=== PATIENT | female | born 1950 | race Caucasian/White ===

== ENCOUNTER 2023-01-08 09:05 | Outpatient (OUT) | payer MEDICARE, OTHER, SELFPAY ==
--- NOTE | 2023-01-08 09:26 | XR_ITS ---
The [address] [address] Patient Name: RADHA BARNETT MRN: [id number] date: 1950 Sex: F Assigned Patient Location: [facility] Current Patient Location: [facility] Accession/Order Number: [id number] Exam Date: 01/08/2023 09:26 Report Date: 01/08/2023 11:27 At the request of: ANDRAE SEALS Procedure: XR foot RT min 3V PROCEDURE: XR foot RT min 3V DATE: 01/08/2023 8:26 AM CDT COMPARISONS: Right ankle radiographs done the same time as these foot radiographs. CLINICAL INDICATION: RIGHT FOOT PAIN FINDINGS: There is no evidence of fractures or other acute osseous abnormalities. Prominent ankle degenerative changes are identified as described on ankle radiographs. Moderate first carpometacarpal degenerative changes identified There is slight subluxation of the third distal interphalangeal joint on frontal view. This may be related to old trauma. Correlation with physical exam and clinical history may be helpful. This cannot be further assessed on lateral view due to overlying bone and soft tissue Pes planus deformity is identified. IMPRESSION: No evidence of acute osseous abnormalities. Findings as discussed above.. Electronically authenticated by: MIKA CHAMPION Date: 01/08/2023 11:27
--- NOTE | 2023-01-08 09:27 | XR_ITS ---
The [address] [address] Patient Name: RADHA BARNETT MRN: [id number] date: 1950 Sex: F Assigned Patient Location: [facility] Current Patient Location: [facility] Accession/Order Number: [id number] Exam Date: 01/08/2023 09:26 Report Date: 01/08/2023 11:23 At the request of: ANDRAE SEALS Procedure: XR ankle RT min 3V PROCEDURE: XR ankle RT min 3V DATE: 01/08/2023 8:26 AM CDT COMPARISONS: None CLINICAL INDICATION: RIGHT ANKLE PAIN FINDINGS: There is no evidence of fractures or other acute osseous abnormalities. There is prominent right ankle degenerative changes. This includes significant narrowing of the medial tibiotalar joint space. There is associated subchondral sclerosis at this narrowing. There is moderate anterior tibiotalar spurring. The ankle mortise is not widened. There is corticated 1 cm ossific density distal to the medial malleolus probably representing old trauma and/or accessory ossicle. There appears to be some ankle joint effusion noted on lateral view IMPRESSION: Significant right ankle degenerative changes. . Electronically authenticated by: MIKA CHAMPION Date: 01/08/2023 11:23
== END 2023-01-08 09:06 ==
PROVIDERS: PCP Physician Assistant; Visit Provider Physician Assistant
DX: M25.571 Pain in right ankle and joints of right foot (principal)
CPT/HCPCS: 73610; 73630

== ENCOUNTER 2023-01-13 14:18 | Outpatient (OUT) | payer MEDICARE, OTHER, SELFPAY ==
--- NOTE | 2023-01-13 14:27 | CT_ITS ---
The [address] [address] Patient Name: RADHA BARNETT MRN: [id number] date: 1950 Sex: F Assigned Patient Location: CT Current Patient Location: CT Accession/Order Number: [id number] Exam Date: 01/13/2023 14:30 Report Date: 01/13/2023 15:32 At the request of: ESTRELLA ENCISO Procedure: CT ankle RT wo con CT ankle RT wo con CLINICAL HISTORY: Chronic right ankle pain. Primary osteoarthritis, right ankle, TAR protocol M19.071. COMPARISON: 01/08/2023. TECHNIQUE: Noncontrast axial CT of the right lower extremity from the right knee through the right foot, with TAR protocol. Bone and soft tissue windows provided for review. Sagittal and coronal reconstructions performed. Dose reduction techniques were achieved by using automated exposure control and/or adjustment of mA and/or kV according to patient size and/or use of iterative reconstruction technique. FINDINGS: No acute bony process throughout. Severe degenerative change of the right ankle joint with chronic remodeling of the talar dome and anterior tibial plafond. Minimal associated effusion. Achilles tendon is grossly intact and normal thickness. Plantar fascial intact. Mild degenerative change of the midfoot and great toe MTP joint. Early degenerative change of the knee joint. IMPRESSION: Preoperative planning CT right ankle with degenerative change. Electronically authenticated by: LOGAN PAEZ Date: 01/13/2023 15:32
== END 2023-01-13 14:19 ==
PROVIDERS: PCP Physician Assistant; Visit Provider Student in an Organized Health Care Education/Training Program
DX: M19.071 Primary osteoarthritis, right ankle and foot (principal)
CPT/HCPCS: 73700

== ENCOUNTER 2023-07-15 06:54 | Outpatient (OUT) | payer MEDICARE, OTHER, SELFPAY ==
--- NOTE | 2023-07-15 06:57 | MM_ITS ---
Patient Name: RADHA BARNETT MR#: [id number] : 1950 Exam Date: 07/15/2023 Ordering Doctor: DR. PETAR DUBOIS D.O. RADIOLOGY REPORT PROCEDURE: MM TOMOSYNTHESIS SCREENING BI COMPARISON: MG MAMM SCREEN 3D JUSTO CAD, 07/14/2022. MG MAMM SCREEN 3D JUSTO CAD, 06/20/2021. MG MAMM SCREEN JUSTO W CAD, 06/18/2020. MG MAMM JUSTO SCRN W CAD DIG, 04/27/2013. INDICATIONS: screening for malignant neoplasm of breast Calculator Name [facility] Breast Cancer Risk Assessment Tool 5 Year Breast Cancer Risk 1.70% Lifetime Breast Cancer Risk 4.90% Personal Breast Cancer No Personal Ovarian Cancer No Treatments None Family Cancers Aunt-maternal with breast cancer at age 80; Brother with lung cancer at age 65; Brother with colon cancer at age 70. LOCATION: [facility] BREAST COMPOSITION: Heterogeneously dense,which may obscure small masses. FINDINGS: DIAGNOSTIC CATEGORY 1--NEGATIVE. RIGHT BREAST: No significant suspicious finding. No significant change has occurred. LEFT BREAST: No significant suspicious finding. No significant change has occurred. RECOMMENDATIONS: ROUTINE MAMMOGRAM AND CLINICAL EVALUATION IN 12 MONTHS. PLEASE NOTE: A NORMAL MAMMOGRAM DOES NOT EXCLUDE THE POSSIBILITY OF BREAST CANCER. A CLINICALLY SUSPICIOUS PALPABLE LUMP SHOULD BE BIOPSIED. Dictated by: All Reynolds M.D. on 07/15/2023 at 14:07 Approved by: All Reynolds M.D. on 07/15/2023 at 14:09
== END 2023-07-15 06:55 | disposition home or self-care (01) ==
LOC: MAMMO 06:54
PROVIDERS: Visit Provider Obstetrics & Gynecology
DX: Z12.31 Encounter for screening mammogram for malignant neoplasm of breast (principal); Z80.3 Family history of malignant neoplasm of breast; Z80.0 Family history of malignant neoplasm of digestive organs; Z80.1 Family history of malignant neoplasm of trachea, bronchus and lung
CPT/HCPCS: 77063; 77067

== ENCOUNTER 2023-07-15 08:51 | Outpatient (OUT) | payer MEDICARE, OTHER, SELFPAY ==
--- NOTE | 2023-07-15 | XR_ITS ---
[address] [address] Patient Name: RADHA BARNETT MRN: [id number] date: 1950 Sex: F Assigned Patient Location: [facility] Current Patient Location: [facility] Accession/Order Number: [id number] Exam Date: 07/15/2023 09:10 Report Date: 07/15/2023 11:52 At the request of: URIEL CHUA Procedure: XR foot RT min 3V EXAM: XR foot RT min 3V HISTORY: RIGHT FOOT PAIN COMPARISON: 01/08/2023 FINDINGS/IMPRESSION: 1. No acute fracture or dislocation 2. Mild degeneration of the interphalangeal joints. 3. Moderate to advanced degeneration at the ankle joint. No ankle joint effusion. 4. Normal alignment of the bones of the foot. Electronically authenticated by: BIBIANA SHEARER Date: 07/15/2023 11:52
--- NOTE | 2023-07-15 | XR_ITS ---
The [address] [address] Patient Name: RADHA BARNETT MRN: [id number] date: 1950 Sex: F Assigned Patient Location: [facility] Current Patient Location: [facility] Accession/Order Number: [id number] Exam Date: 07/15/2023 09:10 Report Date: 07/15/2023 10:50 At the request of: URIEL CHUA Procedure: XR ankle RT min 3V CLINICAL HISTORY: RIGHT ANKLE PAIN. EXAMINATION: Right ankle: 07/15/2023. COMPARISON: 01/08/2023. FINDINGS: 3 views are provided which demonstrate significant degenerative changes at the talofibular, talotibial joint along the medial/lateral aspect, respectively with sclerosis of the distal tibia along its lateral aspect, talar dome as well as the medial aspect of the distal fibula. Besides there are degenerative changes of the tarsotarsal joints. There is probably an old avulsion injury involving the distal fibula. No new fractures or dislocations are seen. Base of the fifth metatarsal appears intact. No significant soft tissue swelling, calcifications or radiopaque foreign bodies. XR/XR ankle RT min 3V IMPRESSION: 1. No significant interval change to minimal progression of degenerative changes along the medial talofibular, lateral talar tibial joint. 2. No fractures or dislocations. Electronically authenticated by: STEWART GUTHRIE Date: 07/15/2023 10:50
== END 2023-07-15 08:52 | disposition home or self-care (01) ==
LOC: RAD 08:51
PROVIDERS: Visit Provider Podiatrist Foot & Ankle Surgery
DX: Z12.31 Encounter for screening mammogram for malignant neoplasm of breast (principal); Z80.0 Family history of malignant neoplasm of digestive organs; Z80.1 Family history of malignant neoplasm of trachea, bronchus and lung; Z80.3 Family history of malignant neoplasm of breast; M19.071 Primary osteoarthritis, right ankle and foot
CPT/HCPCS: 73610; 73630; 77063; 77067

== ENCOUNTER 2023-08-05 09:47 | Emergency (ER) | payer MEDICARE, OTHER, SELFPAY ==
[2023-08-05] VITALS (15 sets, daily range): BP systolic 154–175; BP diastolic 70–85; PULSE 62–75; RESP 9–21; TEMP 36.5; O2SAT 98–100; BMI 19.0
--- NOTE | 2023-08-05 10:02 | ECG_ITS ---
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
[2023-08-05] MEDS: 0.9 % SODIUM CHLORIDE 1,000 ML 1000 ML IV (10:21)
--- NOTE | 2023-08-05 10:22 | XR_ITS ---
The [address] [address] Patient Name: RADHA BARNETT MRN: [id number] date: 1950 Sex: F Assigned Patient Location: ER Current Patient Location: ED.MAIN Accession/Order Number: [id number] Exam Date: 08/05/2023 10:15 Report Date: 08/05/2023 10:43 At the request of: JEY HAYNES Procedure: XR chest 1V EXAM: XR chest 1V HISTORY: dizzy COMPARISON: None. TECHNIQUE: AP portable FINDINGS: LUNGS: No significant pulmonary parenchymal abnormalities. Scattered nodules, size and density suggests granulomas VASCULATURE: No increased pulmonary vasculature. PLEURA: No pneumothorax, effusion, or pleural thickening. CARDIAC: No cardiomegaly or cardiac silhouette abnormality. MEDIASTINUM: No visible mass or adenopathy. BONES: No fracture or visible bone lesion. OTHER: Negative. XR/XR chest 1V IMPRESSION: No acute cardiopulmonary process Electronically authenticated by: DICK OLMSTEAD Date: 08/05/2023 10:43
[2023-08-05 10:37] LABS: Basophils Absolute Auto 0.1 10^3/uL (0.0-0.1); Eosinophils Absolute Auto 0.1 10^3/uL (0.0-0.7); Eosinophils Percent Auto 1.1 % (0.9-7.0); Hematocrit 39.1 % (36.0-48.0); Hemoglobin 12.9 g/dL (12.0-16.0); Immature Granulocytes Abs Auto 0.03 10^3/uL (0.00-0.03); Immature Granulocytes Pct Auto 0.4 % (0.0-0.5); Lymphocytes Absolute Auto 1.2 10^3/uL (1.2-3.8); Lymphocytes Percent Auto 15.5 % (20.5-60.0); Mean Corpuscular Hemoglobin 31.2 pg (26.7-34.0); Mean Corpuscular Volume 94.4 fL (81.0-99.0); Mean Platelet Volume 9.8 fL (9.5-13.5); Monocytes Absolute Auto 0.6 10^3/uL (0.3-0.8); Neutrophils Absolute Auto 5.9 10^3/uL (1.4-6.5); Platelet Count 274 10^3/uL (150-450); Red Blood Count 4.14 10^6/uL (4.20-5.40); Red Cell Distribution Width 12.2 % (11.0-15.0); White Blood Count 7.9 10^3/uL (4.0-11.0)
[2023-08-05 10:55] LABS: Alanine Aminotransferase 22 U/L (14-59); Albumin Level 3.6 g/dL (3.4-5.0); Alkaline Phosphatase 78 U/L (46-116); Anion Gap 11.7; Aspartate Amino Transferase 18 U/L (15-37); BUN Creatinine Ratio 32.5; Bilirubin Total 0.4 mg/dL (0.2-1.0); Calcium 9.6 mg/dL (8.5-10.1); Carbon Dioxide 28.7 mmol/L (21.0-32.0); Chloride 102 mmol/L (98-107); Estimated GFR (African America >60 (>=60); Estimated GFR (Non-African Ame >60 (>=60); Globulin 3.5 g/dL; Glucose 136 mg/dL (74-106); Potassium 4.4 mmol/L (3.5-5.1); Sodium 138 mmol/L (136-145); Total Protein 7.1 g/dL (6.4-8.2); Troponin I High Sensitivity <4.0 pg/mL (4.0-51.3)
--- NOTE | 2023-08-05 10:55 | ED.GENADUL1 ---
HPI - General Adult General Chief complaint: Dizziness Stated complaint: LOW BLOOD PRESSURE Time Seen by Provider: 08/05/23 10:00 Source: patient Mode of arrival: walk-in History of Present Illness HPI narrative: Patient is a 72-year-old female who is presenting to the Emergency Room with a near syncopal episode occurred at home today. at bedside. Patient is very physically fit, walks daily. Patient does not believe that she drinks enough water a day, agrees. Patient was taking down [employer] lights outside. Patient was doing a lot of activity, she began feeling lightheaded and dizzy, no vertigo. Patient came into the house to sit down, had one episode of nausea and vomiting and felt like she is going to pass out. Patient came to the Emergency Room. She never had a headache. No neck pain. Patient never had any chest pain or shortness of breath. Patient Still had some symptoms of llightheaded and dizziness when she got to the Emergency Room. Patient took her blood pressure at home, and it was reading low and did not normalize. Patient says that when she is at home she's had symptoms like this previously, will take her blood pressure and And it will be slightly low but it will normalize. Blood pressure was lower today and it did not normalize so she came to the Emergency Room. . All systems are negative except as noted/marked. All systems reviewed and otherwise negative. . Nurses note and vital signs reviewed and patient is not hypoxic. General: The patient appears well and in no apparent distress. Patient is resting comfortably on cart. Patient is not toxic, lethargic, or listless Skin: Warm, dry, no pallor noted. There is no rash noted. No petechiae, purpura. Head: Normocephalic, atraumatic Eye: Normal conjunctiva, no drainage, EOMI. PERRL Ears, Nose, Mouth, and Throat: oral mucosa is moist. Nares patent. Mouth without vesicles. Cardiovascular: Regular Rate and Rhythm, no murmur, gallop, rub Respiratory: Patient is in no distress, no accessory muscle use, lungs are clear to auscultation, no wheezing, rales or rhonchi Back: non-tender, no CVA tenderness bilaterally to percussion. No CT LS midline pain GI: soft, no tenderness to palpation, no masses appreciated. No rebound, guarding, or rigidity noted. No flank pain bilateral, No distention Musculoskeletal: Patient has full range of motion of all of the extremities, no motor, sensory, or focal neurological deficits Neurological: A&O x3, normal speech Psychiatric: Cooperative Related Data Home Medications Medication Instructions Recorded Confirmed No Known Home Medications 08/05/23 08/05/23 Allergies Allergy/AdvReac Type Severity Reaction Status Date / Time No Known Drug Allergies Allergy Verified 08/05/23 09:55 Exam Constitutional Vital Signs, click to edit/add: Last Vital Signs Temp 97.7 F 08/05/23 09:50 Pulse 72 08/05/23 11:50 Resp 17 08/05/23 11:50 BP 162/70 H 08/05/23 10:30 Pulse Ox 98 08/05/23 11:50 Course Vital Signs Vital signs: Vital Signs Temperature 97.7 F 08/05/23 09:50 Pulse Rate 72 08/05/23 09:50 Respiratory Rate 20 08/05/23 09:50 Blood Pressure 170/85 H 08/05/23 09:50 Pulse Oximetry 99 08/05/23 09:50 Temperature 97.7 F 08/05/23 09:50 Pulse Rate 72 08/05/23 11:50 Respiratory Rate 17 08/05/23 11:50 Blood Pressure 162/70 H 08/05/23 10:30 Pulse Oximetry 98 08/05/23 11:50 Medical Decision Making MDM Narrative Medical decision making narrative: Orthostatics were negative. Patient felt much better after 1 L of IV fluid. Patient has signs of mild dehydration in her urine. Patient has slight elevation of BUN. Patient has had ellevated BUUN aand creatinine in the past. Patient and were educated to drink more water at home, patient understands if she has additional near syncopal episodes tto follow-up with PCP for further cardiac testing is needed. Patient feels much better at discharge, walk to the bathroom and a difficulties. No questions at discharge. Lab Data Lab results reviewed: Yes I reviewed the patient's lab results Labs: Lab Results 08/05/23 08/05/23 Range/Units 10:15 12:05 WBC 7.9 (4.0-11.0) 10^3/uL RBC 4.14 L (4.20-5.40) 10^6/uL Hgb 12.9 (12.0-16.0) g/dL Hct 39.1 (36.0-48.0) % MCV 94.4 (81.0-99.0) fL MCH 31.2 (26.7-34.0) pg MCHC 33.0 (29.9-35.2) g/dL RDW 12.2 (11.0-15.0) % Plt Count 274 (150-450) 10^3/uL MPV 9.8 (9.5-13.5) fL Neut % (Auto) 75.0 (43.0-75.0) % Lymph % (Auto) 15.5 L (20.5-60.0) % [place] % (Auto) 7.0 (1.7-12.0) % Eos % (Auto) 1.1 (0.9-7.0) % Baso % (Auto) 1.0 (0.2-2.0) % Neut # (Auto) 5.9 (1.4-6.5) 10^3/uL Lymph # (Auto) 1.2 (1.2-3.8) 10^3/uL [place] # (Auto) 0.6 (0.3-0.8) 10^3/uL Eos # (Auto) 0.1 (0.0-0.7) 10^3/uL Baso # (Auto) 0.1 (0.0-0.1) 10^3/uL Abs Immat Gran (auto) 0.03 (0.00-0.03) 10^3/uL Imm/Tot Granulo (auto) 0.4 (0.0-0.5) % Sodium 138 (136-145) mmol/L Potassium 4.4 (3.5-5.1) mmol/L Chloride 102 (98-107) mmol/L Carbon Dioxide 28.7 (21.0-32.0) mmol/L Anion Gap 11.7 BUN 27.0 H (7.0-18.0) mg/dL Creatinine 0.83 (0.55-1.02) mg/dL Est GFR ( Amer) >60 (>=60) Est GFR (Non-Af Amer) >60 (>=60) BUN/Creatinine Ratio 32.5 Glucose 136 H (74-106) mg/dL Calcium 9.6 (8.5-10.1) mg/dL Total Bilirubin 0.4 (0.2-1.0) mg/dL AST 18 (15-37) U/L ALT 22 (14-59) U/L Alkaline Phosphatase 78 (46-116) U/L Total Creatine Kinase 57 (26-192) U/L Troponin I High Sens <4.0 L (4.0-51.3) pg/mL NT-Pro-B Natriuret Pep 122.0 (<=900.0) pg/mL Total Protein 7.1 (6.4-8.2) g/dL Albumin 3.6 (3.4-5.0) g/dL Globulin 3.5 g/dL Albumin/Globulin Ratio 1.0 Urine Color Lt. yellow (YELLOW) Urine Clarity Clear (CLEAR) Urine pH 7.0 (5.0-9.0) Ur Specific [place] 1.015 (1.005-1.025) Urine Protein Negative (NEG/TRACE) mg/dL Urine Glucose (UA) Negative (NEGATIVE) mg/dL Urine Ketones 15 A (NEGATIVE) mg/dL Urine Occult Blood Negative (NEGATIVE) Urine Nitrite Negative (NEGATIVE) Urine Bilirubin Negative (NEGATIVE) Urine Urobilinogen 0.2 (0.2-1.0) EU/dL Ur Leukocyte Esterase Negative (NEGATIVE) Urine RBC None seen (0-2) #/HPF Urine WBC None seen (NONE SEEN) #/HPF Ur Squamous Epith Cells Rare (NONE/RARE) #/LPF Urine Bacteria None seen (NONE SEEN) #/HPF Urine Mucus None seen (NONE SEEN) ECG Data Attestation: I personally reviewed and interpreted this ECG as follows: (EKG interpretation. Normal sinus rhythm at 65 beats a minute. Normal axis deviation. No acute ST elevation, no acute ectopy. QTC of 427.) Discharge Plan Discharge Chief Complaint: Dizziness Clinical Impression: Dizziness, Near syncope, Dehydration, mild Patient Disposition: Home, Self-Care Condition: Fair Mode of Transportation: Private Vehicle Prescriptions / Home Meds: No Action No Known Home Medications Instructions: Dehydration (ED), Near Syncope (ED), Lightheadedness (ED), Dizziness (ED) Additional Instructions: Continue to increase fluids at home. Take woman's One-A-Day multivitamin. If you continue to have passing out episodes, follow-up with Dr. Santillan for further outpatient cardiac testing as indicated. Stand Alone Forms: Portal Instructions Referrals: RICARDO SANTILLAN [Primary Care Provider] - 1 week Discharge Date/Time: 08/05/23 12:40
[2023-08-05 10:56] LABS: Creatine Kinase 57 U/L (26-192)
--- NOTE | 2023-08-05 11:10 | PC.NURSE ---
PT STATES SHE FEELS BETTER -- IVF BAG ALMOST GONE. WARM BLANKET GIVEN
--- NOTE | 2023-08-05 12:16 | PC.NURSE ---
pt up using bathroom, urine sample collected. Clear yellow.
[2023-08-05 12:18] LABS: Bilirubin Urine NEGATIVE (NEGATIVE); Blood Urine NEGATIVE (NEGATIVE); Clarity Urine CLEAR (CLEAR); Color Urine LT. YELLOW (YELLOW); Glucose Urine UA NEGATIVE (NEGATIVE); Ketones Urine 15 mg/dL (NEGATIVE); Leukocyte Esterase Urine NEGATIVE (NEGATIVE); Nitrite Urine NEGATIVE (NEGATIVE); Protein Urine NEGATIVE (NEG/TRACE); Specific Gravity Urine 1.015 (1.005-1.025); Urobilinogen Urine 0.2 EU/dL (0.2-1.0)
[2023-08-05 12:26] LABS: Bacteria Urine NONE SEEN #/HPF (NONE SEEN); Mucus Urine NONE SEEN (NONE SEEN); RBC Urine NONE SEEN #/HPF (0-2); Squamous Epithelial Cell Urine RARE #/LPF (NONE/RARE); WBC Urine NONE SEEN #/HPF (NONE SEEN)
== END 2023-08-05 12:40 | disposition home or self-care (01) ==
PROVIDERS: Emergency Provider Emergency Medicine; PCP Family Medicine
DX: E86.0 Dehydration (principal); R42 Dizziness and giddiness; R55 Syncope and collapse
CPT/HCPCS: 36415; 71045; 80053; 81001; 82550; 83880; 84484; 85025; 93005; 99285

== ENCOUNTER 2023-12-16 08:54 | Outpatient (OUT) | payer MEDICARE, OTHER, SELFPAY ==
--- NOTE | 2023-12-16 | XR_ITS ---
[address] [address] Patient Name: RADHA BARNETT MRN: [id number] date: 1950 Sex: F Assigned Patient Location: Current Patient Location: Accession/Order Number: [id number] Exam Date: 12/16/2023 08:56 Report Date: 12/16/2023 09:37 At the request of: URIEL CHUA Procedure: XR ankle RT min 3V PROCEDURE: XR ankle RT min 3V, XR foot RT min 3V COMPARISON: 07/15/2023 HISTORY: RIGHT ANKLE PAIN FINDINGS: BONES:No acute fracture or dislocation. Severe degenerative changes with [id number] articulation and remodeling along the lateral tibiotalar joint with subchondral lytic changes. SOFT TISSUES:Negative. No visible soft tissue swelling. EFFUSION:Ankle joint effusion OTHER: Negative. XR/XR ankle RT min 3V IMPRESSION: Severe tibiotalar joint osteoarthritis Electronically authenticated by: DICK OLMSTEAD Date: 12/16/2023 09:37
--- NOTE | 2023-12-16 | XR_ITS ---
[address] [address] Patient Name: RADHA BARNETT MRN: [id number] date: 1950 Sex: F Assigned Patient Location: Current Patient Location: Accession/Order Number: [id number] Exam Date: 12/16/2023 08:56 Report Date: 12/16/2023 09:37 At the request of: URIEL CHUA Procedure: XR foot RT min 3V PROCEDURE: XR ankle RT min 3V, XR foot RT min 3V COMPARISON: 07/15/2023 HISTORY: RIGHT ANKLE PAIN FINDINGS: BONES:No acute fracture or dislocation. Severe degenerative changes with [id number] articulation and remodeling along the lateral tibiotalar joint with subchondral lytic changes. SOFT TISSUES:Negative. No visible soft tissue swelling. EFFUSION:Ankle joint effusion OTHER: Negative. XR/XR foot RT min 3V IMPRESSION: Severe tibiotalar joint osteoarthritis Electronically authenticated by: DICK OLMSTEAD Date: 12/16/2023 09:37
== END 2023-12-16 08:55 | disposition home or self-care (01) ==
LOC: EC 08:54
PROVIDERS: PCP Family Medicine; Visit Provider Podiatrist Foot & Ankle Surgery
DX: M25.571 Pain in right ankle and joints of right foot (principal); M19.071 Primary osteoarthritis, right ankle and foot
CPT/HCPCS: 73610; 73630

== ENCOUNTER 2024-07-18 07:24 | Outpatient (OUT) | payer MEDICARE, OTHER, SELFPAY ==
--- NOTE | 2024-07-18 | MM_ITS ---
Patient Name: RADHA BARNETT MR#: [id number] : 1950 Exam Date: 07/18/2024 Ordering Doctor: DR. PETAR DUBOIS D.O. RADIOLOGY REPORT PROCEDURE: MM TOMOSYNTHESIS SCREENING BI COMPARISON: MG MAMM SCREEN 3D JUSTO CAD, 07/14/2022. MM TOMOSYNTHESIS SCREENING BI, 07/15/2023. INDICATIONS: Screening for malignant neoplasm Calculator Name [employer] Breast Cancer Risk Assessment Tool 5 Year Breast Cancer Risk 1.70% Lifetime Breast Cancer Risk 4.70% Personal Breast Cancer No Personal Ovarian Cancer No Treatments None Family Cancers Aunt-maternal with breast cancer at age 80; Brother with lung cancer at age 65; Brother with colon cancer at age 70. LOCATION: [facility] BREAST COMPOSITION: The breasts are heterogeneously dense,which may obscure small masses. FINDINGS: DIAGNOSTIC CATEGORY 1--NEGATIVE. NO CHANGE FROM COMPARISON ASSESSMENT. Scattered benign-appearing calcifications are present. Scattered benign-appearing lymph nodes are present. RIGHT BREAST: No significant suspicious finding. Stable micro clip marker upper inner quadrant, posterior breast LEFT BREAST: No significant suspicious finding. RECOMMENDATIONS: ROUTINE MAMMOGRAM AND CLINICAL EVALUATION IN 12 MONTHS. PLEASE NOTE: A NORMAL MAMMOGRAM DOES NOT EXCLUDE THE POSSIBILITY OF BREAST CANCER. A CLINICALLY SUSPICIOUS PALPABLE LUMP SHOULD BE BIOPSIED. Dictated by: Lenin Scott MD on 07/18/2024 at 10:16 Approved by: Lenin Scott MD on 07/18/2024 at 10:18
--- OUTSIDE RECORDS SUMMARY | 2024-07-18 07:29 | XMS_ITS | CCD ---
Author Organization [facility] Care Team Providers Care Family Court Counsellor Name Role Phone PETAR DUBOIS Admitting Unavailable PETAR DUBOIS Attending Unavailable ELISE ., DR ELIZABETH Hendricks Primary Care Unavailable GEDDES, DR DICK Acharya Consulting Unavailable RINPETAR FANG Consulting Unavailable ELISE ., DR ELIZABETH Hendricks Admitting Unavailable ELISE ., DR ELIZABETH Hendricks Attending Unavailable ELISE ., DR ELIZABETH Hendricks Primary Care Unavailable ELISE ., DR ELIZABETH Hendricks Consulting Unavailable ELISE ., DR ELIZABETH Hendricks Admitting Unavailable ELISE ., DR ELIZABETH Hendricks Attending Unavailable ELISE ., DR ELIZABETH Hendricks Primary Care Unavailable ELISE ., DR ELIZABETH Hendricks Consulting Unavailable Brandon, APPLICATIONS TESTER Alesia L Attending Unavailable Brandon, APPLICATIONS TESTER Alesia L Attending Unavailable Brandon, APPLICATIONS TESTER Alesia L Attending Unavailable Brandon, APPLICATIONS TESTER Alesia L Attending Unavailable Jason Santillan Attending Unavailable Brandon, APPLICATIONS TESTER Alesia L Attending Unavailable Allergies Allergy Classification Reported Allergen(s) Allergy Type Date of Onset Reaction(s) Facility (1 source) Sulfonamides (Antibiotic); Translations: [sulfa drugs] Propensity to adverse reactions (disorder) [facility] Repository Problems Problem Classification Problem Date Documented Da te Episodic/Chronic Other bone disease and musculoskeletal deformities (1 source) Other specified disorders of bone density and structure, unspecified site; Translations: [OTH D/O BONE DEN STRUCT UNS SITE] Onset: 07-19-2022 Episodic Other screening for suspected conditions (not mental disorders or infectious disease) (5 sources) Encounter for screening mammogram for malignant neoplasm of breast; Translations: [Encounter for screening for osteoporosis] Onset: 07-14-2022 Episodic Residual codes; unclassified (1 source) Asymptomatic menopausal state; Translations: [ASYMPTOMATIC MENOPAUSAL STATE] Onset: 07-19-2022 Episodic Residual codes; unclassified (1 source) Family history of malignant neoplasm of breast; Translations: [FAMILY HX MALIG NEOPLASM OF BREAST] Onset: 07-19-2022 Episodic Residual codes; unclassified (1 source) Family history of malignant neoplasm of trachea, bronchus and lung; Translations: [FAM HX MALIG NEOPLSM TRACH BRON LNG] Onset: 07-19-2022 Episodic Residual codes; unclassified (1 source) Family history of malignant neoplasm of digestive organs; Translations: [FAM HX MALIG NEOPLASM DIGESTIV ORGN] Onset: 07-19-2022 Episodic Results Test Name Value Interpretation Reference Range Facil ity Ambulatory Visit Summaryon 0 03-28-2024 Ambulatory Visit Summary Ambulatory Visit Summary ELISABETH EDWARDS :1950 Visit Date:03/28/2024 Ambulatory Visit Instructions Your Diagnosis BMI less than 19,adult Nonsmoker Your Care Team Attending Physician - Tyrell CAVAZOS, Jason Jenkins Primary Care Physician - Alesia Berg This Is Your Medications List benzonatate (benzonatate 200 mg oral capsule) cholecalciferol (D3 50 mcg (2000 intl units) oral capsule) chondroitin glucosamine (glucosamine hydrochloride 1500 mg oral tablet) magnesium glycinate Procedures Performed Tubal ligation (08/03/1978), Tonsillectomy. Discharge Vitals Temperature (Oral) 36.5 ?C Heart Rate (Peripheral) 70 Respiratory Rate 16 Blood Pressure 116/80 Height 163 cm Height 64 in Weight 48.7 kg Weight 107.14 lb BMI 18.33 What to do next Scheduled Follow-Up Appointments Thursday 8:00 AM EDT Where: [place] [id number]- Medications What How Much When Why Instructions Unchanged benzonatate (benzonatate 200 mg oral capsule) 1 Capsules By Mouth 3 times a day Lab test positive for detection of COVID-19 virus BMI less than 19,adult Non-smoker Duration: 7 Days Unchanged cholecalciferol (D3 50 mcg (2000 intl units) oral capsule) 2 Capsules By Mouth Every day Unchanged chondroitin By Mouth Every day 1200 mg patient states she takes two per day Unchanged glucosamine (glucosamine hydrochloride 1500 mg oral tablet) 2 Tablets By Mouth Every day Unchanged magnesium glycinate See instructions Oral 275mg patient states she takes two per day Allergies sulfa drugs (Unknown) Problems Ongoing - Any problem that you are currently receiving treatment for. BMI less than 19,adult Hypercholesteremia Hypotension Lab test positive for detection of COVID-19 virus Wellness examination Patient Survey You may receive a survey via text or e-mail asking about your office visit. Please share your experience with us by completing your survey. We appreciate your feedback and thank you for choosing us for your care. [facility] [place] [facility] Medicine Office/Clini c Noteon 03-28-2024 Family Medicine Office/Clinic Note Family Medicine Office/Clinic Note [facility] Staff Elisabeth is a 73 year old female presenting for sick visit Acute: saw Alesia on 03/22 tested + for covid, has a continuing cough that is getting worse Says more in the chest now, very little coming up and it's clear. Worried about pneumonia Did get some mucinex and she's feeling some lightheadedness History of Present Illness Patient was diagnosed with COVID on March 22. Patient was given Tessalon Perles. Patient had a lot of drainage and was unable to sleep over the weekend. Today patient is feeling better. 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 Patient is feeling better. Physical Exam Vitals & Measurements T: 36.5 ?C(Oral) HR: 70(Peripheral) RR: 16 BP: 116/80 SpO2: 100% HT: 64 in HT: 163 cm WT: 48.7 kg WT: 107.14 lb BMI: 18.33 General: alert, no acute distress ENMT: oral mucosa moist, Cardiovascular: regular rate and rhythm, normal peripheral perfusion Respiratory: Lungs CTA, respirations non labored Extremities: no deformity, no trauma Neurological: oriented x 4, LOC appropriate for age, CN II-XII intact, motor strength equal & normal bilaterally, speech normal Abdomen: Soft, Nontender, Non-distended, + BS Assessment/Plan 1. COVID (U07.1: COVID-19) At this time patient is improving. Will continue Tessalon Perles at night and Mucinex during the day. Encouraged hydration. If patient does not feel better by we will do a chest x-ray. Lungs however are still clear. 2. Seasonal allergies (J30.2: Other seasonal allergic rhinitis) Likely the reason for the influx in symptoms is high pollen count at this time. Use of Benadryl at night as needed to help. Follow-up No qualifying data available Patient Education Allergic Rhinitis, Adult Problem List/Past Medical History Ongoing BMI less than 19,adult COVID Hypercholesteremia Hypotension Lab test positive for detection of COVID-19 virus Seasonal allergies Wellness examination Historical No qualifying data Procedure/Surgical History Tubal ligation (08/03/1978), Tonsillectomy. Medications benzonatate 200 mg oral capsule, 200 mg= 1 cap(s), Oral, TID, Not taking: switched to mucinex so none since thursday chondroitin, Oral, Daily D3 50 mcg (2000 intl units) oral capsule, 100 mcg= 2 cap(s), Oral, Daily glucosamine hydrochloride 1500 mg oral tablet, 3000 mg= 2 tab(s), Oral, Daily magnesium glycinate, See Instructions Allergies sulfa drugs (Unknown) Social History Alcohol - Low Risk, 01/21/2024 Current, Wine, 1-2 times per month, 1 drinks/episode average. 1.00 drinks/episode maximum. Previous treatment: None. Alcohol use interferes with work or home: No. Drinks more than intended: No. Others hurt by drinking: No. Ready to change: No. Household alcohol concerns: No., 01/21/2024 Substance Abuse - Denies Substance Abuse, 01/21/2024 Tobacco - Denies Tobacco Use, 01/21/2024 Never (less than 100 in lifetime) Tobacco Use:. Never Smokeless Tobacco Use:. Cigarettes, Household tobacco concerns: No. Yes, 03/28/2024 Family History Diabetes mellitus type 2: Mother. Hyperlipidemia: Mother. Immunizations Vaccine Date Status Comments influenza virus vaccine, inactivated 06/17/2021 Recorded SARS-CoV-2 (COVID-19) mRNA BNT-162b2 vax 10/26/2020 Given Prophylaxis SARS-CoV-2 (COVID-19) mRNA BNT-162b2 vax 10/05/2020 Given Prophylaxis influenza virus vaccine, inactivated 05/23/2020 Recorded influenza virus vaccine, inactivated 05/17/2019 Recorded influenza virus vaccine, inactivated 05/24/2018 Recorded influenza virus vaccine, inactivated 05/27/2017 Recorded influenza virus vaccine, inactivated 05/14/2017 Recorded influenza virus vaccine, inactivated 05/21/2016 Recorded influenza virus vaccine, inactivated 05/05/2016 Recorded influenza virus vaccine, inactivated 06/13/2015 Recorded hepatitis A pediatric vaccine 01/04/2009 Recorded typhoid vaccine, inactivated 06/26/2008 Recorded diphtheria/pertussis, acel/tetanus adult 06/26/2008 Recorded hepatitis A pediatric vaccine 06/26/2008 Recorded Normal [facility] Comment on above: Result Comment: Elec tronically Signed By: Tyrell CAVAZOS, Jason Hernandez.br\Date and Time Signed: 03/28/24 09:19 EDT Ambulatory Visit Summaryon 0 03-22-2024 Ambulatory Visit Summary Ambulatory Visit Summary ELISABETH EDWARDS :1950 Visit Date:03/22/2024 Ambulatory Visit Instructions Your Care Team Attending Physician - Alesia Berg Primary Care Physician - Alesia Berg This Is Your Medications List cholecalciferol (D3 50 mcg (2000 intl units) oral capsule) chondroitin glucosamine (glucosamine hydrochloride 1500 mg oral tablet) magnesium glycinate zinc sulfate (Zinc) Procedures Performed Tubal ligation (08/03/1978), Tonsillectomy. Discharge Vitals Temperature (Oral) 37.6 ?C Heart Rate (Peripheral) 77 Respiratory Rate 16 Blood Pressure 128/74 Height 163 cm Height 64 in Weight 49.8 kg Weight 109.56 lb BMI 18.74 What to do next Scheduled Follow-Up Appointments Thursday 8:00 AM EDT Where: [facility] [place] [id number]- Medications What How Much When Instructions Unchanged cholecalciferol (D3 50 mcg (2000 intl units) oral capsule) 2 Capsules By Mouth Every day Unchanged chondroitin By Mouth Every day 1200 mg patient states she takes two per day Unchanged glucosamine (glucosamine hydrochloride 1500 mg oral tablet) 2 Tablets By Mouth Every day Unchanged magnesium glycinate See instructions Oral 275mg patient states she takes two per day Unchanged zinc sulfate (Zinc) See instructions 8mg patient states she takes two per day Allergies sulfa drugs (Unknown) Problems Ongoing - Any problem that you are currently receiving treatment for. BMI less than 19,adult Hypercholesteremia Hypotension Wellness examination Patient Survey You may receive a survey via text or e-mail asking about your office visit. Please share your experience with us by completing your survey. We appreciate your feedback and thank you for choosing us for your care. [facility] [place] [facility] Family Medicine Office/Clini c Noteon 03-22-2024 Family Medicine Office/Clinic Note Family Medicine Office/Clinic Note Chief Complaint URI sx HPI Staff Pt presents today for URI Sx Onset: cough started yesterday. Characteristics:_nasa l drainage Relieved by: did take Tylenol. helped with fever & aches. Associated Symptoms:body aches fever (102 this am @ home) Did recently just get over another cold. History of Present Illness pt presents today for URI symptoms with fever Review of Systems PHQ Score Initial Depression Screen Score: 0 SCORE Physical Exam Vitals & Measurements T: 37.6 ?C(Oral) HR: 77(Peripheral) RR: 16 BP: 128/74 SpO2: 98% HT: 64 in HT: 163 cm WT: 49.8 kg WT: 109.56 lb BMI: 18.74 General: alert, no acute distress ENMT: oral mucosa moist, no pharyngeal erythema or exudate Cardiovascular: regular rate and rhythm, normal peripheral perfusion Respiratory: Lungs CTA, respirations non labored Extremities: no deformity, no trauma Neurological: oriented x 4, LOC appropriate for age, CN II-XII intact, motor strength equal & normal bilaterally, speech normal Assessment/Plan 1. Lab test positive for detection of COVID-19 virus (U07.1: COVID-19) pt presents today with URI symptoms. body aches and fever. Covid test is positive in office today. will treat with z sigifredo , medrol dose pack and Tessalon pearls Ordered: azithromycin, = 1 packet(s), Oral, As Directed, as directed on package labeling, X 5 day(s), # 6 tab(s), Refills(s) 0, Pharmacy: [facility]/pharmacy #[id number], 163, cm, 03/22/24 9:02:00 EDT, Height/Length Dosing, 49.8, kg, 03/22/24 9:02:00 EDT, Weight Dosing benzonatate, 200 mg = 1 cap(s), Oral, TID, X 7 day(s), # 21 cap(s), Refills(s) 0, Pharmacy: [facility]/pharmacy #[id number], 163, cm, 03/22/24 9:02:00 EDT, Height/Length Dosing, 49.8, kg, 03/22/24 9:02:00 EDT, Weight Dosing methylPREDNISolone, = 1 packet(s), Oral, As Directed, as directed on package labeling, X 6 day(s), # 21 tab(s), Refills(s) 0, [id number] 163, cm, 03/22/24 9:02:00 EDT, Height/Length Dosing, 49.8, kg, 03/22/24 9:02:00 EDT, Weight Dosing 2. BMI less than 19,adult (Z68.1: Body mass index [BMI] 19.9 or less, adult) BMI education Ordered: azithromycin, = 1 packet(s), Oral, As Directed, as directed on package labeling, X 5 day(s), # 6 tab(s), Refills(s) 0, Pharmacy: [facility]/pharmacy #[id number], 163, cm, 03/22/24 9:02:00 EDT, Height/Length Dosing, 49.8, kg, 03/22/24 9:02:00 EDT, Weight Dosing benzonatate, 200 mg = 1 cap(s), Oral, TID, X 7 day(s), # 21 cap(s), Refills(s) 0, [id number] 163, cm, 03/22/24 9:02:00 EDT, Height/Length Dosing, 49.8, kg, 03/22/24 9:02:00 EDT, Weight Dosing methylPREDNISolone, = 1 packet(s), Oral, As Directed, as directed on package labeling, X 6 day(s), # 21 tab(s), Refills(s) 0, [id number] 163, cm, 03/22/24 9:02:00 EDT, Height/Length Dosing, 49.8, kg, 03/22/24 9:02:00 EDT, Weight Dosing Body Mass Index (BMI) documented 3008F Current tobacco non-user 1036F Depression Screening Negative 3352F Discharge medications reconciled with current medications in outpatient record 1111F Falls plan of care documented 0518F Medication list documented in medical record 1159F Rapid COVID POC 51839 Review of all meds by a prescribing practitioner or clinical pharmacist documented in EHR 1160F 3. Non-smoker (Z78.9: Other specified health status) continue not smoking Ordered: azithromycin, = 1 packet(s), Oral, As Directed, as directed on package labeling, X 5 day(s), # 6 tab(s), Refills(s) 0, [id number] 163, cm, 03/22/24 9:02:00 EDT, Height/Length Dosing, 49.8, kg, 03/22/24 9:02:00 EDT, Weight Dosing benzonatate, 200 mg = 1 cap(s), Oral, TID, X 7 day(s), # 21 cap(s), Refills(s) 0, Pharmacy: [facility]/pharmacy #[id number], 163, cm, 03/22/24 9:02:00 EDT, Height/Length Dosing, 49.8, kg, 03/22/24 9:02:00 EDT, Weight Dosing methylPREDNISolone, = 1 packet(s), Oral, As Directed, as directed on package labeling, X 6 day(s), # 21 tab(s), Refills(s) 0, [id number] 163, cm, 03/22/24 9:02:00 EDT, Height/Length Dosing, 49.8, kg, 03/22/24 9:02:00 EDT, Weight Dosing Follow-up No qualifying data available Problem List/Past Medical History Ongoing BMI less than 19,adult Hypercholesteremia Hypotension Lab test positive for detection of COVID-19 virus Wellness examination Historical No qualifying data Procedure/Surgical History Tubal ligation (08/03/1978), Tonsillectomy. Medications azithromycin 250 mg Tab, 1 packet(s), Oral, As Directed benzonatate 200 mg oral capsule, 200 mg= 1 cap(s), Oral, TID chondroitin, Oral, Daily D3 50 mcg (2000 intl units) oral capsule, 100 mcg= 2 cap(s), Oral, Daily glucosamine hydrochloride 1500 mg oral tablet, 3000 mg= 2 tab(s), Oral, Daily magnesium glycinate, See Instructions Medrol 4 mg Tab, 1 packet(s), Oral, As Directed Zinc, See Instructions Allergies sulfa drugs (Unknown) Social History Alcohol - Low Risk, 01/21/2024 Current, Wine, 1-2 times per month, 1 drinks/episode average. 1.00 d (more content not included)... Normal [facility] Comment on above: Result Comment: Elec tronically Signed By: Alesia Berg\.br\Date and Time Signed: 03/22/24 09:31 EDT Ambulatory Visit Summaryon 0 02-02-2024 Ambulatory Visit Summary Ambulatory Visit Summary ELISABETH EDWARDS :1950 Visit Date:02/02/2024 Ambulatory Visit Instructions Your Care Team Attending Physician - Alesia Berg Primary Care Physician - Alesia Berg This Is Your Medications List cholecalciferol (D3 50 mcg (2000 intl units) oral capsule) chondroitin glucosamine (glucosamine hydrochloride 1500 mg oral tablet) magnesium glycinate zinc sulfate (Zinc) Procedures Performed Tubal ligation (08/03/1978), Tonsillectomy. Discharge Vitals Heart Rate (Peripheral) 68 Respiratory Rate 18 Blood Pressure 124/84 Height 162 cm Height 64 in Weight 49.5 kg Weight 108.9 lb BMI 18.86 What to do next Scheduled Follow-Up Appointments Thursday 8:00 AM EDT Where: [facility] [place] [facility] Family Medicine Office/Clini c Noteon 02-02-2024 Family Medicine Office/Clinic Note Family Medicine Office/Clinic Note HPI Staff Elisabeth is a 73 year old female presenting to discuss labs labs 10/19/23 on the dark side No concerns or questions No refills needed at this time History of Present Illness pt presents today to discuss lab work. was seen for AMW visit and had some concerns about cholesterol Review of Systems PHQ Score Initial Depression Screen Score: 0 SCORE Physical Exam Vitals & Measurements HR: 68(Peripheral) RR: 18 BP: 124/84 SpO2: 99% HT: 64 in HT: 162 cm WT: 49.5 kg WT: 108.9 lb BMI: 18.86 General: alert, no acute distress ENMT: oral mucosa moist, no pharyngeal erythema or exudate Cardiovascular: regular rate and rhythm, normal peripheral perfusion Respiratory: Lungs CTA, respirations non labored Extremities: no deformity, no trauma Neurological: oriented x 4, LOC appropriate for age, CN II-XII intact, motor strength equal & normal bilaterally, speech normal Assessment/Plan 1. Hypercholesteremia (E78.00: Pure hypercholesterolemia, unspecified) discussed labs at length. cholesterol is 235 HDL is 93. all other labs are WNL. pt does not have any other risk factors to start a statin at this time. pt verbalizes understanding and has no other questions at this time. she was 3 miles 5 x's a week and is always active outside. she is not overweight, BP is normal. RTC 1 year for annual wellness visit 2. BMI less than 19,adult (Z68.1: Body mass index [BMI] 19.9 or less, adult) pt is very active and eats healthy. Follow-up No qualifying data available Problem List/Past Medical History Ongoing BMI less than 19,adult Hypercholesteremia Hypotension Wellness examination Historical No qualifying data Procedure/Surgical History Tubal ligation (08/03/1978), Tonsillectomy. Medications chondroitin, Oral, Daily D3 50 mcg (2000 intl units) oral capsule, 100 mcg= 2 cap(s), Oral, Daily glucosamine hydrochloride 1500 mg oral tablet, 3000 mg= 2 tab(s), Oral, Daily magnesium glycinate, See Instructions Zinc, See Instructions Allergies sulfa drugs (Unknown) Social History Alcohol - Low Risk, 01/21/2024 Current, Wine, 1-2 times per month, 1 drinks/episode average. 1.00 drinks/episode maximum. Previous treatment: None. Alcohol use interferes with work or home: No. Drinks more than intended: No. Others hurt by drinking: No. Ready to change: No. Household alcohol concerns: No., 01/21/2024 Substance Abuse - Denies Substance Abuse, 01/21/2024 Tobacco - Denies Tobacco Use, 01/21/2024 Never (less than 100 in lifetime) Tobacco Use:. Never Smokeless Tobacco Use:. Cigarettes, Household tobacco concerns: No., 02/02/2024 Family History Diabetes mellitus type 2: Mother. Hyperlipidemia: Mother. Immunizations Vaccine Date Status Comments influenza virus vaccine, inactivated 06/17/2021 Recorded SARS-CoV-2 (COVID-19) mRNA BNT-162b2 vax 10/26/2020 Given Prophylaxis SARS-CoV-2 (COVID-19) mRNA BNT-162b2 vax 10/05/2020 Given Prophylaxis influenza virus vaccine, inactivated 05/23/2020 Recorded influenza virus vaccine, inactivated 05/17/2019 Recorded influenza virus vaccine, inactivated 05/24/2018 Recorded influenza virus vaccine, inactivated 05/27/2017 Recorded influenza virus vaccine, inactivated 05/14/2017 Recorded influenza virus vaccine, inactivated 05/21/2016 Recorded influenza virus vaccine, inactivated 05/05/2016 Recorded influenza virus vaccine, inactivated 06/13/2015 Recorded hepatitis A pediatric vaccine 01/04/2009 Recorded typhoid vaccine, inactivated 06/26/2008 Recorded diphtheria/pertussis, acel/tetanus adult 06/26/2008 Recorded hepatitis A pediatric vaccine 06/26/2008 Recorded Normal [facility] Comment on above: Result Comment: Elec tronically Signed By: Alesia Berg\.br\Date and Time Signed: 02/02/24 10:15 EDT Ambulatory Visit Summaryon 0 01-21-2024 Ambulatory Visit Summary ELISABETH EDWARDS :1950 Visit Date:01/21/2024 Ambulatory Visit Instructions Your Diagnosis Annual visit for general adult medical examination without abnormal findings Vaccination declined Screening declined by patient Your Care Team Attending Physician - Alesia Berg Primary Care Physician - Jason Santillan MD. This Is Your Medications List cholecalciferol (D3 50 mcg (2000 intl units) oral capsule) chondroitin glucosamine (glucosamine hydrochloride 1500 mg oral tablet) magnesium glycinate zinc sulfate (Zinc) Procedures Performed Tubal ligation (08/03/1978), Tonsillectomy. Discharge Vitals Heart Rate (Peripheral) 76 Respiratory Rate 16 Blood Pressure 138/78 Height 162 cm Height 64 in Weight 49.2 kg Weight 108.24 lb BMI 18.75 What to do next Scheduled Follow-Up Appointments Thursday 10:00 AM EDT With: Alesia Berg Where: [facility] Normal [address] [place], [place] [id number]- \.br\ Medications\.br\ What How Much When Instructions\.br\ Unchanged cholecalciferol (D3 50 mcg (2000 intl units) oral capsule) 2 Capsules By Mouth Every day\.br\ Unchanged chondroitin By Mouth Every day 1200 mg patient states she takes two per day \.br\ Unchanged glucosamine (glucosamine hydrochloride 1500 mg oral tablet) 2 Tablets By Mouth Every day\.br\ Unchanged magnesium glycinate See instructions Oral 275mg patient states she takes two per day \.br\ Unchanged zinc sulfate (Zinc) See instructions 8mg patient states she takes two per day \.br\ Allergies\.br\ sulfa drugs (Unknown)\.br\ Problems\.br\ Ongoing - Any problem that you are currently receiving treatment for.\.br\ Hypotension\.br\ Wellness examination\.br\ Patient Survey\.br\ You may receive a survey via text or e-mail asking about your office visit. Please share your experience with us by completing your survey. We appreciate your feedback and thank you for choosing us for your care.\.br\ Education Materials\.br\ Exercising to Stay Healthy\.br\ To become healthy and stay healthy, it is recommended that you do moderate-intensity and vigorous-intensity exercise. You can tell that you are exercising at a moderate intensity if your heart starts beating faster and you start breathing faster but can still hold a conversation. You can tell that you are exercising at a vigorous intensity if you are breathing much harder and faster and cannot hold a conversation while exercising.\.br\ How can exercise benefit me?\.br\ Exercising regularly is important. It has many health benefits, such as:\.br\ ? \.br\ Improving overall fitness, flexibility, and endurance.\.br\ ? \.br\ Increasing bone density.\.br\ ? \.br\ Helping with weight control.\.br\ ? \.br\ Decreasing body fat.\.br\ ? \.br\ Increasing muscle strength and endurance.\.br\ ? \.br\ Reducing stress and tension, anxiety, depression, or anger.\.br\ ? \.br\ Improving overall health.\.br\ What guidelines should I follow while exercising?\.br\ ? \.br\ Before you start a new exercise program, talk with your health care provider.\.br\ ? \.br\ Do not exercise so much that you hurt yourself, feel dizzy, or get very short of breath.\.br\ ? \.br\ Wear comfortable clothes and wear shoes with good support.\.br\ ? \.br\ Drink plenty of water while you exercise to prevent dehydration or heat stroke.\.br\ ? \.br\ Work out until your breathing and your heartbeat get faster (moderate intensity).\.br\ How often should I exercise?\.br\ Choose an activity that you enjoy, and set realistic goals. Your health care provider can help you make an activity plan that is individually designed and works best for you.\.br\ Exercise regularly as told by your health care provider. This may include:\.br\ ? \.br\ Doing strength training two times a week, such as:\.br\ ? \.br\ Lifting weights.\.br\ ? \.br\ Using resistance bands.\.br\ ? \.br\ Push-ups.\.br\ ? \.br\ Sit-ups.\.br\ ? \.br\ Yoga.\.br\ ? \.br\ Doing a certain intensity of exercise for a given amount of time. Choose from these options:\.br\ ? \.br\ A total of 150 minutes of moderate-intensity exercise every week.\.br\ ? \.br\ A total of 75 minutes of vigorous-intensity exercise every week.\.br\ ? \.br\ A mix of moderate-intensity and vigorous-intensity exercise every week.\.br\ Children, women, people who have not exercised regularly, people who are overweight, and older adults may need to talk with a health care provider about what activities are safe to perform. If you have a medical condition, be sure to talk with your health care provider before you start a new exercise program.\.br\ What are some exercise ideas?\.br\ \.br\ Moderate-intensity exercise ideas include:\.br\ ? \.br\ Walking 1 mile (1.6 km) in about 15 minutes.\.br\ ? \.br\ Biking.\.br\ ? \.br\ Hiking.\.br\ ? \.br\ Golfing.\.br\ ? \.br\ Dancing.\.br\ ? \.br\ Water aerobics.\.br\ Vigorous-intensity exercise ideas include:\.br\ ? \.br\ Walking 4.5 miles (7.2 km) or more in about 1 hour.\.br\ ? \.br\ Jogging or running 5 miles (8 km) in about 1 hour.\.br\ ? \.br\ Biking 10 miles (16.1 km) or more in about 1 hour.\.br\ ? \.br\ Lap swimming.\.br\ ? \.br\ Roller-skating or in-line skating.\.br\ ? \.br\ Cross-country skiing.\.br\ ? \.br\ Vigorous competitive sports, such as football, basketball, and soccer.\.br\ ? \.br\ Jumping rope.\.br\ ? \.br\ Aerobic dancing.\.br\ What are some everyday activities that can help me get exercise?\.br\ ? \.br\ Yard work, such as:\.br\ ? \.br\ Pushing a canine service instructor trainer.\.br\ ? \.br\ Raking and bagging leaves.\.br\ ? \.br\ Washing your car.\.br\ ? \.br\ Pushing a stroller.\.br\ ? \.br\ Shoveling snow.\.br\ ? \.br\ Gardening.\.br\ ? \.br\ Washing windows or floors.\.br\ How can I be more active in my day-to-day activities?\.br\ ? \.br\ Use stairs instead of an elevator.\.br\ ? \.br\ Take a walk during your lunch break.\.br\ ? \.br\ If you drive, park your car farther away from your work or school.\.br\ ? \.br\ If you take public transportation, get off one stop early and walk the rest of the way.\.br\ ? \.br\ Stand up or walk around during all of your indoor phone calls.\.br\ ? \.br\ Get up, stretch, and walk around every 30 minutes throughout the day.\.br\ ? \.br\ Enjoy exercise with a friend. Support to continue exercising will help you keep a regular routine of activity.\.br\ Where to find more information\.br\ You can find more information about exercising to stay healthy from:\.br\ ? \.br\ U.S. Department of Health and Human Services: www.hhs.gov\.br\ ? \.br\ Centers for Disease Control and Prevention (CDC): www.cdc.gov\.br\ Summary\.br\ ? \.br\ Exercising regularly is important. It will improve your overall fitness, flexibility, and endurance.\.br\ ? \.br\ Regular exercise will also improve your overall health. It can help you control your weight, reduce stress, and improve your bone density.\.br\ ? \.br\ Do not exercise so much that you hurt yourself, feel dizzy, or get very short of breath.\.br\ ? \.br\ Before you start a new exercise program, talk with your health care provider.\.br\ This information is not intended to replace advice given to you by your health care provider. Make sure you discuss any questions you have with your health care provider.\.br\ Document Revised: 11/15/2021 Document Reviewed: 11/15/2021 [employer] Patient Education ? 2022 [employer].br\ Healthy Eating\.br\ Following a healthy eating pattern may help you to achieve and maintain a healthy body weight, reduce the risk of chronic disease, and live a long and productive life. It is important to follow a healthy eating pattern at an appropriate calorie level for your body. Your nutritional needs should be met primarily through food by choosing a variety of nutrient-rich foods.\.br\ What are tips for following this plan?\.br\ Reading food labels\.br\ ? \.br\ Read labels and choose the following:\.br\ ? \.br\ Reduced or low sodium.\.br\ ? \.br\ Juices with 100% fruit juice.\.br\ ? \.br\ Foods with low saturated fats and high polyunsaturated and monounsaturated fats.\. [facility] Family Medicine Office/Clini c Noteon 01-21-2024 Family Medicine Office/Clinic Note Chief Complaint Medicare Wellness Visit Review of Systems PHQ Score Initial Depression Screen Score: 0 SCORE Physical Exam Vitals & Measurements HR: 76(Peripheral) RR: 16 BP: 138/78 SpO2: 98% HT: 162 cm HT: 64 in WT: 49.2 kg WT: 108.24 lb BMI: 18.75 Assessment/Plan 1. Annual visit for general adult medical examination without abnormal findings (Z00.00: Encounter for general adult medical examination without abnormal findings) The patient was given a customized and personalized print out of all the current AHRQ USPSTF?s recommendations for preventative services and all current CDC recommended immunizations, relevant risk recommendations and the following patient brochures were given. Reviewed Medicare Prevention Services checklist. CDC-Falls Prevention and home safety screening reviewed. Patient denies any falls in last 12 months, voices no worry about falling. Exhibits no problems with sitting, standing or ambulation. Patient aware with keeping walk way area free of clutter to prevent tripping and/or falling. [place] Advance Directives reviewed. Documents remain at home and present in the chart. Patient denies any problems with ADL?s and Instrumental ADL?s. Cognitive screening completed with memory and clock face drawing. No deficits noted. Immunization record reviewed, discussed Shingrix vaccine with educational handout and availability. COVID vaccines have been administered. Allergies and medications reviewed and up to date. Reviewed OTC medications, medication list up to date. Blood tests were reviewed: Labs UTD. No concerns with bowel/ bladder. Colonoscopy last completed: 04/2022. Patient states she gets repeat colonoscopies every five years at [facility] due to family history of Colon Cancer. Reviewed pain symptoms : denies pain. 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 Takes Motrin at times with effectiveness, uses an ankle brace when she walks in the mornings. Reviewed all outside providers that patient follows. Last visit summary notes available in chart and/or have been requested. Patient declines any signs or symptoms of depression at this time. 8 minutes spent with screening and documentation. PHQ2 screening score 0. Patient drinks alcohol monthly or less, 1 glass of wine, denies concerns. 10 minutes spent with screening and documentation. Audit score 1. Follow up scheduled with PCP, 02/02/24. AWV has been scheduled, 01/16/25. Medicare provides yearly screening for alcohol and depression concerns. This is completed during our Medicare wellness visit for those who do not have a current diagnosis of depression or concerns with alcohol use. I spent a total of 18 minutes on this date of service which included preparing to see the patient, face to face patient care, completing clinical documentation, obtaining and/or reviewing separately obtained history, counseling and educating the patient with handouts. Explanations were provided with reviewing questionnaires. AUDIT risk assessment screening completed, risk score (1) with patient denying concerns with use. Completed PHQ-2 risk assessment for depression with risk score (0), negative findings. Patient has been reminded to notify the provider if there would be a change or concerns with symptoms with fear, unable to sleep, worrying too much or feeling down and/or sad with lost of interest with daily activities. Will continue to monitor with screening yearly during Medicare wellness visits. 2. Vaccination declined (Z28.21: Immunization not carried out because of patient refusal) Influenza and pneumococcal vaccines declined with today's visit. Advised all appropriate vaccines available in office if ever she may chose. 3. Screening declined by patient (Z53.20: Procedure and treatment not carried out because of patient's decision for unspecified reasons) Patient due to have repeat Dexa Scan for Bone Density Screening in July. Last Dexa 07/14/22 showed osteopenia. Patient also due to have repeat Mammogram, last Mammogram 07/14/22. patient declines orders for these screenings at this time, states she follows up with Dr. Meléndez, OBGYN, in July and usually gets her Mammogram and Dexa Screening ordered through Dr. Meléndez. Discussed with patient the risk of Hepatitis C for people born between 0913-4419. Handout CDC-Hepatitis C given. Patient declines to have labs drawn for Hepatitis C screening based on year of . Will follow up with PCP at next appointment Follow-up No qualifying data available Patient Education Exercising to Stay Healthy Healthy Eating Fat and Cholesterol Restricted Eating Plan Preventive Care 65 Years and Older, Female Problem List/Past Medical History Ongoing Hypotension Wellness examination Historical No qualifying data Procedure/Surgical History Tubal ligation (08/03/1978), Tonsillectomy. Medications chondroitin, Oral, Daily D3 50 mcg (2000 intl units) oral (more content not included)... Normal [facility] Comment on above: Result Comment: Elec tronically Signed By: Alesia Berg\.br\Date and Time Signed: 01/21/24 12:39 EDT\.br\Electronically Co-Signed By: Emelina Greco LPN\.br\Date and Time Co-Signed: 01/21/24 12:15 EDT Patient Educationon 01-21-20 24 Patient Education Nutrition Healthy Eating Following a healthy eating pattern may help you to achieve and maintain a healthy body weight, reduce the risk of chronic disease, and live a long and productive life. It is important to follow a healthy eating pattern at an appropriate calorie level for your body. Your nutritional needs should be met primarily through food by choosing a variety of nutrient-rich foods. What are tips for following this plan? Reading food labels ? Read labels and choose the following: ? Reduced or low sodium. ? Juices with 100% fruit juice. ? Foods with low saturated fats and high polyunsaturated and monounsaturated fats. ? Foods with whole grains, such as whole wheat, cracked wheat, brown rice, and wild rice. ? Whole grains that are fortified with folic acid. This is recommended for women who are or who want to become . ? Read labels and avoid the following: ? Foods with a lot of added sugars. These include foods that contain brown sugar, corn sweetener, corn syrup, dextrose, fructose, glucose, high-fructose corn syrup, honey, invert sugar, lactose, malt syrup, maltose, molasses, raw sugar, sucrose, trehalose, or turbinado sugar. ? Do not eat more than the following amounts of added sugar per day: ? 6 teaspoons (25 g) for women. ? 9 teaspoons (38 g) for men. ? Foods that contain processed or refined starches and grains. ? Refined grain products, such as white flour, degermed cornmeal, white bread, and white rice. Shopping ? Choose nutrient-rich snacks, such as vegetables, whole fruits, and nuts. Avoid high-calorie and high-sugar snacks, such as potato chips, fruit snacks, and candy. ? Use oil-based dressings and spreads on foods instead of solid fats such as butter, stick margarine, or cream cheese. ? Limit pre-made sauces, mixes, and instant products such as flavored rice, instant noodles, and ready-made pasta. ? Try more plant-protein sources, such as tofu, tempeh, black beans, edamame, lentils, nuts, and seeds. ? Explore eating plans such as the Mediterranean diet or vegetarian diet. Cooking ? Use oil to saut? or stir-dickson foods instead of solid fats such as butter, stick margarine, or lard. ? Try baking, boiling, grilling, or broiling instead of frying. ? Remove the fatty part of meats before cooking. ? Steam vegetables in water or broth. Meal planning ? At meals, imagine dividing your plate into fourths: ? One-half of your plate is fruits and vegetables. ? One-fourth of your plate is whole grains. ? One-fourth of your plate is protein, especially lean meats, poultry, eggs, tofu, beans, or nuts. ? Include low-fat dairy as part of your daily diet. Lifestyle ? Choose healthy options in all settings, including home, work, school, restaurants, or stores. ? Prepare your food safely: ? Wash your hands after handling raw meats. ? Keep food preparation surfaces clean by regularly washing with hot, soapy water. ? Keep raw meats separate from wjrmv-dn-nkn foods, such as fruits and vegetables. ? bullard machine operator, meat, poultry, and eggs to the recommended internal temperature. ? Store foods at safe temperatures. In general: ? Keep cold foods at 40?F (4.4?C) or below. ? Keep hot foods at 140?F (60?C) or above. ? Keep your freezer at 0?F (-17.8?C) or below. ? Foods are no longer safe to eat when they have been between the temperatures of 40??140?F (4.4?60?C) for more than 2 hours. What foods should I eat? Fruits Aim to eat 2 cup-equivalents of fresh, canned (in natural juice), or frozen fruits each day. Examples of 1 cup-equivalent of fruit include 1 small apple, 8 large strawberries, 1 cup canned fruit, ? cup dried fruit, or 1 cup 100% juice. Vegetables Aim to eat 2??3 cup-equivalents of fresh and frozen vegetables each day, including different varieties and colors. Examples of 1 cup-equivalent of vegetables include 2 medium carrots, 2 cups raw, leafy greens, 1 cup chopped vegetable (raw or cooked), or 1 medium baked potato. Grains Aim to eat 6 ounce-equivalents of whole grains each day. Examples of 1 ounce-equivalent of grains include 1 slice of bread, 1 cup odram-uu-all cereal, 3 cups popcorn, or ? cup cooked rice, pasta, or cereal. Meats and other proteins Aim to eat 5?6 ounce-equivalents of protein each day. Examples of 1 ounce-equivalent of protein include 1 egg, 1/2 cup nuts or seeds, or 1 tablespoon (16 g) peanut butter. A cut of meat or fish that is the size of a deck of cards is about 3?4 ounce-equivalents. ? Of the protein you eat each week, try to have at least 8 ounces come from seafood. This includes salmon, trout, nichole, and anchovies. Dairy Aim to eat 3 cup-equivalents of fat-free or low-fat dairy each day. Examples of 1 cup-equivalent of dairy include 1 cup (240 mL) milk, 8 ounces (250 g) yogurt, 1? ounces (44 g) natural cheese, or 1 cup (240 mL) fortified soy milk. Fats and oils ? Aim for about 5 teaspoons (21 g) per day (more content not included)... Normal [facility] Screenson 01-21-2024 Screens [id number]. 00TIFF [facility] Consultation Noteon 12-23-19 Consultation Note [id number]#1. 00TIFF [facility] RAD - MISCon 12-17-2023 RAD - MISC [id number]. 00TIFF [facility] Ambulatory Visit Summaryon 0 08-10-2023 Ambulatory Visit Summary ELISABETH EDWARDS :1950 Visit Date:08/10/2023 Ambulatory Visit Instructions Your Diagnosis BMI less than 19,adult Non-smoker Your Care Team Attending Physician - Alesia Berg Primary Care Physician - Jason Santillan MD Procedures Performed Tubal ligation (08/03/1978), Tonsillectomy. Discharge Vitals Heart Rate (Peripheral) 64 Respiratory Rate 16 Blood Pressure 122/80 Height 166 cm Height 65 in Weight 51.1 kg Weight 112.42 lb BMI 18.54 What to do next Scheduled Follow-Up Appointments 2023 11:00 AM EDT Where: [facility] [place] [facility] Medicine Office/Clini c Noteon 08-10-2023 Family Medicine Office/Clinic Note HPI Staff Elisabeth is a 72 year old female presenting for ER follow up ER followup: Hospital: [facility] Visit date: 08/05/2023 Symptoms the patient presented with: Dizziness, lightheaded Symptom onset/injury onset: 08/05/23 pt was taking down [place] lights Testing Performed: ECG normal New medications: no medications Current concerns: pt blood pressure was low at home 54/43 then when to ER was 170/85 pt has been monitoring blood pressures at home. average blood pressure is 100-130's/70's 80's. Pt does continue intermittent lightheaded lasting 1-2 minutes will sit down have some water and then will go away. History of Present Illness pt presents today for ER follow up. Her BP was low and she was sympomtatic Review of Systems PHQ Score Initial Depression Screen Score: 0 SCORE ROS - Provider Constitutional: no fever, no chills, no sweats, no fatigue Respiratory: no shortness of breath, no cough, no orthopnea, no wheezing. Cardiovascular: no chest pain, no palpitations, no edema. Neurologic: no headache, no dizziness, no numbness, no weakness. Physical Exam Vitals & Measurements HR: 64(Peripheral) RR: 16 BP: 122/80 SpO2: 99% HT: 65 in HT: 166 cm WT: 51.1 kg WT: 112.42 lb BMI: 18.54 General: alert, no acute distress ENMT: oral mucosa moist, no pharyngeal erythema or exudate Cardiovascular: regular rate and rhythm, normal peripheral perfusion Respiratory: Lungs CTA, respirations non labored Extremities: no deformity, no trauma Neurological: oriented x 4, LOC appropriate for age, CN II-XII intact, motor strength equal & normal bilaterally, speech normal Assessment/Plan 1. Hypotension (I95.9: Hypotension, unspecified) pt presents today for ER follow up. Her BP was low and she was dizzy. pt does not drink much water. BP log reviewed and BP's have been WNL since this episode. encouraged pt to change positions slowly and increase water intake. pt is also concerned about being so thin. pt does not eat much during the day. encouraged her to increase caloric intake and increase protein. all questions answered. RTC as needed 2. BMI less than 19,adult (Z68.1: Body mass index [BMI] 19.9 or less, adult) BMI education complete 3. Non-smoker (Z78.9: Other specified health status) continue not smoking Follow-up No qualifying data available Problem List/Past Medical History Ongoing Hypotension Wellness examination Historical No qualifying data Procedure/Surgical History Tubal ligation (08/03/1978), Tonsillectomy. Medications No active medications Allergies sulfa drugs (Unknown) Social History Alcohol Current, Wine, 1-2 times per month, 1 drinks/episode average. Household alcohol concerns: No., 01/20/2023 Tobacco Never (less than 100 in lifetime) Tobacco Use:. Never Smokeless Tobacco Use:. Household tobacco concerns: No., 08/10/2023 Family History Diabetes mellitus type 2: Mother. Hyperlipidemia: Mother. Immunizations Vaccine Date Status Comments influenza virus vaccine, inactivated 06/17/2021 Recorded SARS-CoV-2 (COVID-19) mRNA BNT-162b2 vax 10/26/2020 Given Prophylaxis SARS-CoV-2 (COVID-19) mRNA BNT-162b2 vax 10/05/2020 Given Prophylaxis influenza virus vaccine, inactivated 05/23/2020 Recorded influenza virus vaccine, inactivated 05/17/2019 Recorded influenza virus vaccine, inactivated 05/24/2018 Recorded influenza virus vaccine, inactivated 05/27/2017 Recorded influenza virus vaccine, inactivated 05/14/2017 Recorded influenza virus vaccine, inactivated 05/21/2016 Recorded influenza virus vaccine, inactivated 05/05/2016 Recorded influenza virus vaccine, inactivated 06/13/2015 Recorded hepatitis A pediatric vaccine 01/04/2009 Recorded typhoid vaccine, inactivated 06/26/2008 Recorded diphtheria/pertussis, acel/tetanus adult 06/26/2008 Recorded hepatitis A pediatric vaccine 06/26/2008 Recorded Normal [place] [facility] Comment on above: Result Comment: Elec tronically Signed By: Alesia Berg\.br\Date and Time Signed: 08/10/23 12:31 EST Patient Logson 08-10-2023 Patient Logs [id number] .00TIFF Normal [facility] ED Note-Physicianon 08-06-19 ED Note-Physician [id number] .00TIFF Normal [facility] RAD - MISCon 08-05-2023 RAD - MISC [id number] .00TIFF Normal [facility] Consultation Noteon 08-04-19 Consultation Note [id number] .00TIFF Normal [facility] FAIR CBC AUTO DIFFon 10-07-2022 BASO # 0.1 103/ul Normal 0.0-0.1 [facility] Comment on above: Performed By: #### H FPFCBC #### [facility] [address] [place] [address] Dr. Kartik Wright Basophils/100 WBC (Bld) 0.9 % Normal 0.2-2.0 [facility] Comment on above: Performed By: #### H FPFCBC #### [facility] [address] [place] [address] Dr. Kartik Wright EO # 0.1 103/ul Normal 0.0-0.7 [facility] Comment on above: Performed By: #### H FPFCBC #### [facility] [address] [place] [address] Dr. Kartik Wright Eosinophils/100 WBC (Bld) 2.3 % Normal 0.9-7.0 [facility] Comment on above: Performed By: #### H FPFCBC #### [facility] [address] [place] [address] Dr. Kartik Wright Erythrocyte distribution width (RBC) [Ratio] 12.4 % Normal 11.0-15.0 [facility] Comment on above: Performed By: #### H FPFCBC #### [facility] [address] [place] [address] Dr. Kartik Wright Hematocrit (Bld) [Volume fraction] 40.7 % Normal 36.0-48.0 [facility] Comment on above: Performed By: #### H FPFCBC #### [facility] [address] [place] [address] Dr. Kartik Wright Hemoglobin (Bld) [Mass/Vol] 13.4 g/dL Normal 12.0-16.0 [facility] Comment on above: Performed By: #### H FPFCBC #### [facility] [address] [place] [address] Dr. Kartik Wright IG # 0.02 10e3/ul Normal 0.00-0.03 [facility] Comment on above: Performed By: #### H FPFCBC #### [facility] [address] [place] [address] Dr. Kartik Wright IG % 0.4 % Normal 0.0-0.5 [facility] Comment on above: Performed By: #### H FPFCBC #### [facility] [address] [place] [address] Dr. Kartik Wright LYMPH # 1.3 103/ul Normal 1.2-3.8 [facility] Comment on above: Performed By: #### H FPFCBC #### [facility] [address] [place] [address] Dr. aKrtik Wright Lymphocytes/100 WBC (Bld) 23.8 % Normal 20.5-60.0 [facility] Comment on above: Performed By: #### H FPFCBC #### [facility] [address] [place] [address] Dr. Kartik Wright MCH (RBC) [Entitic mass] 30.2 pg Normal 26.7-34.0 [facility] Comment on above: Performed By: #### H FPFCBC #### [facility] [address] [place] [address] Dr. Kartik Wright MCHC (RBC) [Mass/Vol] 32.9 g/dL Normal 29.9-35.2 [facility] Comment on above: Performed By: #### H FPFCBC #### [facility] [address] [place] [address] Dr. Kartik Wright MCV (RBC) [Entitic vol] 91.7 fL Normal 81.0-99.0 [facility] Comment on above: Performed By: #### H FPFCBC #### [facility] [address] [place] [address] Dr. Kartik Wright MONO # 0.5 103/ul Normal 0.3-0.8 [facility] Comment on above: Performed By: #### H FPFCBC #### [facility] [address] [place] [address] Dr. Kartik Wright Monocytes/100 WBC (Bld) 8.7 % Normal 1.7-12.0 [facility] Comment on above: Performed By: #### H FPFCBC #### [facility] [address] [place] [address] Dr. Kartik Wright NEUT # 3.4 103/ul Normal 1.4-6.5 [facility] Comment on above: Performed By: #### H FPFCBC #### [facility] [address] [place] [address] Dr. Kartik Wright Neutrophils/100 WBC (Bld) 63.9 % Normal 43.0-75.0 [facility] Comment on above: Performed By: #### H FPFCBC #### [facility] [address] [place] [address] Dr. Kartik Wright Platelet mean volume (Bld) [Entitic vol] 9.6 fL Normal 9.5-13.5 [facility] Comment on above: Performed By: #### H FPFCBC #### [facility] [address] [place] [address] Dr. Kartik Wright PLT 259 103/ul Normal 150-450 [facility] Comment on above: Performed By: #### H FPFCBC #### [facility] [address] [place] [address] Dr. Kartik Wright RBC 4.44 106/ul Normal 4.20-5.40 [facility] Comment on above: Performed By: #### H FPFCBC #### [facility] [address] [place] [address] Dr. Kartik Wright WBC 5.3 103/ul Normal 4.0-11.0 [facility] Comment on above: Performed By: #### H FPFCBC #### [facility] [address] [place] [address] Dr. Kartik Wright [facility] GLYCOHEMOGLOBIN A1Con 10-07-2022 Glucose [Mass/Vol] 111 mg/dL Normal [facility] Comment on above: Performed By: #### H FPFA1C #### [facility] [address] [place] [address] Dr. Kartik Wright HbA1c (Bld) [Mass fraction] 5.5 % Normal 4.5-6.2 [facility] Comment on above: Performed By: #### H FPFA1C #### [facility] [address] [place] [address] Dr. [facility] Albumin [Mass/Vol] 3.9 g/dL Normal 3.4-5.0 [facility] Comment on above: Performed By: #### H FPFM #### [facility] [address] [place] [address] Dr. Kartik Wright Albumin/Globulin [Mass ratio] 1.2 {ratio} Normal [facility] Comment on above: Performed By: #### H FPFM #### [facility] [address] [place] [address] Dr. Kartik Wright ALP [Catalytic activity/Vol] 77 U/L Normal 46-116 [facility] Comment on above: Performed By: #### H FPFM #### [facility] [address] [place] [address] Dr. Kartik Wright ALT [Catalytic activity/Vol] 16 U/L Normal 14-59 [facility] Comment on above: Performed By: #### H FPFM #### [facility] [address] [place] [address] Dr. Kartik Wright AST [Catalytic activity/Vol] 20 U/L Normal 15-37 [facility] Comment on above: Performed By: #### H FPFM #### [facility] [address] [address] [address] Kartik Wright Bilirubin [Mass/Vol] 0.5 mg/dL Normal 0.2-1.0 [facility] Comment on above: Performed By: #### H FPFM #### [facility] [address] [address] [address] Kartik Wright Calcium [Mass/Vol] 9.5 mg/dL Normal 8.5-10.1 [facility] Comment on above: Performed By: #### H FPFM #### [facility] [address] [address] [address] Kartik Wright Chloride [Moles/Vol] 106 mmol/L Normal 98-107 [facility] Comment on above: Performed By: #### H FPFM #### [facility] [address] [place] [address] Dr. Kartik Wright CHOL-HDL RATIO NORM SEE BELOW Normal [facility] Comment on above: Result Comment: 3.3 - 4.4 LOW RISK 4.4 - 7.1 AVERAGE RISK 7.1 - 11.0 MODERATE RISK >11.0 HIGH RISK Performed By: #### H FPFM #### [facility] [address] [place] [address] Dr. Kartik Wright Cholesterol [Mass/Vol] 217 mg/dL Critically high <=200 [facility] Comment on above: Performed By: #### H FPFM #### [facility] [address] [place] [address] Dr. Kartik Wright Cholesterol in HDL [Mass/Vol] 83 mg/dL Critically high 40-60 [facility] Comment on above: Performed By: #### H FPFM #### [facility] [address] [place] [address] Dr. Kartik Wright Cholesterol in LDL [Mass/Vol] 126.6 mg/dL Normal [facility] Comment on above: Performed By: #### H FPFM #### [facility] [address] [place] [address] Dr. Kartik Wrigth Cholesterol.total/ Cholesterol in HDL [Mass ratio] 2.6 {ratio} Normal [facility] Comment on above: Performed By: #### H FPFM #### [facility] [address] [address] [address] Kartik Wright CO2 [Moles/Vol] 30.8 mmol/L Normal 21.0-32.0 [facility] Comment on above: Performed By: #### H FPFM #### [facility] [address] [address] [address] Kartik Wright Creatinine [Mass/Vol] 0.76 mg/dL Normal 0.55-1.02 [facility] Comment on above: Performed By: #### H FPFM #### [facility] [address] [place] [address] Dr. Kartik Wright Globulin (S) [Mass/Vol] 3.2 g/dL Normal [facility] Comment on above: Performed By: #### H FPFM #### [facility] [address] [place] [address] Dr. Kartik Wright Glucose [Mass/Vol] 87 mg/dL Normal 74-106 [facility] Comment on above: Performed By: #### H FPFM #### [facility] [address] [place] [address] Dr. Kartik Wright HDL NORMAL > or = 60 mg/dl - LO W CARDIOVASCULAR RISK <40 mg/dl - HIGH CARDIOVASCULAR RISK Normal [facility] Comment on above: Performed By: #### H FPFM #### [facility] [address] [place] [address] Dr. Kartik Wright LDL CALC NORMAL SEE BELOW Normal [facility] Comment on above: Result Comment: <100 mg/dl OPTIMAL 100 - 129 mg/dl NEAR OR ABOVE OPTIMAL 130 - 159 mg/dl BORDERLINE HIGH 160 - 189 mg/dl HIGH >190 mg/dl VERY HIGH Performed By: #### H FPFM #### [facility] [address] [place] [address] Dr. Kartik Wright Potassium [Moles/Vol] 4.0 mmol/L Normal 3.5-5.1 [facility] Comment on above: Performed By: #### H FPFM #### [facility] [address] [address] [address] Kartik Wright Protein [Mass/Vol] 7.1 g/dL Normal 6.4-8.[address] [facility] Comment on above: Performed By: #### H FPFM #### [facility] [address] [address] [address] Kartik Wright Sodium [Moles/Vol] 144 mmol/L Normal 136-[address] [facility] Comment on above: Performed By: #### H FPFM #### [facility] [address] [address] [address] Kartik Wright Triglyceride [Mass/Vol] 37 mg/dL Normal <=150 [facility] Comment on above: Performed By: #### H FPFM #### [facility] [address] [address] [address] Kartik Wright TSH 1.039 uIU/mL Normal 0.358-3.740 [facility] Comment on above: Performed By: #### H FPFM #### [facility] [address] [address] [address] Kartik Wright Urea nitrogen [Mass/Vol] 25.0 mg/dL Critically high 7.0-18.0 [facility] Comment on above: Performed By: #### H FPFM #### [facility] [address] [address] [address] Kartik Wright Urea nitrogen/Creatinin e [Mass ratio] 32.9 mg/mg Normal [facility] Comment on above: Performed By: #### H FPFM #### [facility] [address] [address] [address] Kartik Wright VLDL CALC 7.4 mg/dL Normal [facility] Comment on above: Performed By: #### H FPFM #### [facility] [address] [address] [address] Kartik Wright MG MAMM SCREEN 3D JUSTO CADon 07-14-2022 MG MAMM SCREEN 3D JUSTO CAD Patient: ELISABETH EDWARDS Exam Date: 07/14/2022 : 1950 Gender:F Ordering : DR. PETAR DUBOIS D.O. Admission #: [id number] Family : Order #: [id number] CLICK HERE TO VIEW EXAM RADIOLOGY REPORT PROCEDURE: MAMMOGRAM SCREENING 3D BILATERAL CAD COMPARISON: MG MAMM SCREEN JUSTO W CAD, 06/18/2020. MG MAMM SCREEN 3D JUSTO CAD, 06/20/2021. INDICATIONS: Screening mammography Calculator Name NCI Breast Cancer Risk Assessment Tool 5 Year Breast Cancer Risk 1.70% Lifetime Breast Cancer Risk 5.10% Personal Breast Cancer No Personal Ovarian Cancer No Treatments None Family Cancers Aunt-maternal with breast cancer at age 80; Brother with lung cancer at age 65; Brother with colon cancer at age 70. LOCATION: [facility] BREAST COMPOSITION: Heterogeneously dense,which may obscure small masses. FINDINGS: DIAGNOSTIC CATEGORY 2--BENIGN FINDING. NO CHANGE FROM COMPARISON. Scattered benign-appearing nodules are present. Scattered benign-appearing calcifications are present. Scattered benign-appearing lymph nodes are present. RIGHT BREAST: No significant suspicious finding. LEFT BREAST: No significant suspicious finding. RECOMMENDATIONS: ROUTINE MAMMOGRAM AND CLINICAL EVALUATION IN 12 MONTHS. PLEASE NOTE: A NORMAL MAMMOGRAM DOES NOT EXCLUDE THE POSSIBILITY OF BREAST CANCER. A CLINICALLY SUSPICIOUS PALPABLE LUMP SHOULD BE BIOPSIED. Dictated by: Dick Olmstead MD on 07/14/2022 at 12:31 Approved by: Dick Olmstead MD on 07/14/2022 at 12:56 Normal [facility] XR DEXA BONE DENSITYon 07-14 XR DEXA BONE DENSITY EXAMINATION: XR DEXA BONE DENSITY, 07/14/2022 10:58 AM EST HISTORY: Screening for osteoporosis COMPARISON: 2019, 2011, 2009 TECHNIQUE: Dual-energy X-ray absorptiometry (DEXA) bone density study performed for the axial skeleton. FINDINGS: Bone mineral density AP spine L1-L4 measures 1.037 g/sq cm. Young adult T score -1.2. WHO classification: Osteopenia. Lowest bone mineral densities the left femur measuring 0.712 g/sq cm. T score -2.3. WHO classification: Osteopenia Bone mineral density is reduced up to 4.9% from the prior exam, within physiologic limits IMPRESSION: Osteopenia. Moderate fracture risk Electronically authenticated by: DICK OLMSTEAD Date: 2022-07-14 17:49 Normal [facility] CBC AUTO DIFFon 10-10-2021 BASO # 0.1 103/ul Normal 0.0-0.1 [facility] Comment on above: Performed By: #### H FPFCBC #### [facility] [address] [place] [address] Dr. Kartik Wright Basophils/100 WBC (Bld) 1.3 % Normal 0.2-2.0 [facility] Comment on above: Performed By: #### H FPFCBC #### [facility] [address] [place] [address] Dr. Kartik Wright EO # 0.1 103/ul Normal 0.0-0.7 [facility] Comment on above: Performed By: #### H FPFCBC #### [facility] [address] [place] [address] Dr. Kartik Wright Eosinophils/100 WBC (Bld) 1.7 % Normal 0.9-7.0 [facility] Comment on above: Performed By: #### H FPFCBC #### [facility] [address] [place] [address] Dr. Kartik Wright Erythrocyte distribution width (RBC) [Ratio] 12.1 % Normal 11.0-15.0 [facility] Comment on above: Performed By: #### H FPFCBC #### [facility] [address] [place] [address] Dr. Kartik Wright Hematocrit (Bld) [Volume fraction] 41.3 % Normal 36.0-48.0 [facility] Comment on above: Performed By: #### H FPFCBC #### [facility] [address] [place] [address] Dr. Kartik Wright Hemoglobin (Bld) [Mass/Vol] 13.5 g/dL Normal 12.0-16.0 [facility] Comment on above: Performed By: #### H FPFCBC #### [facility] [address] [place] [address] Dr. Kartik Wright IG # 0.01 10e3/ul Normal 0.00-0.03 [facility] Comment on above: Performed By: #### H FPFCBC #### [facility] [address] [place] [address] Dr. Kartik Wright IG % 0.2 % Normal 0.0-0.5 [facility] Comment on above: Performed By: #### H FPFCBC #### [facility] [address] [place] [address] Dr. Kartik Wright LYMPH # 1.4 103/ul Normal 1.2-3.8 [facility] Comment on above: Performed By: #### H FPFCBC #### [facility] [address] [place] [address] Dr. Kartik Wright Lymphocytes/100 WBC (Bld) 29.1 % Normal 20.5-60.0 [facility] Comment on above: Performed By: #### H FPFCBC #### [facility] [address] [place] [address] Dr. Kartik Wright MCH (RBC) [Entitic mass] 31.0 pg Normal 26.7-34.0 [facility] Comment on above: Performed By: #### H FPFCBC #### [facility] [address] [place] [address] Dr. Kartik Wright MCHC (RBC) [Mass/Vol] 32.7 g/dL Normal 29.9-35.2 [facility] Comment on above: Performed By: #### H FPFCBC #### [facility] [address] [place] [address] Dr. Kartik Wright MCV (RBC) [Entitic vol] 94.7 fL Normal 81.0-99.0 [facility] Comment on above: Performed By: #### H FPFCBC #### [facility] [address] [place] [address] Dr. Kartik Wright MONO # 0.5 103/ul Normal 0.3-0.8 [facility] Comment on above: Performed By: #### H FPFCBC #### [facility] [address] [place] [address] Dr. Kartik Wright Monocytes/100 WBC (Bld) 9.6 % Normal 1.7-12.0 [facility] Comment on above: Performed By: #### H FPFCBC #### [facility] [address] [address] [address] Kartik Wright NEUT # 2.7 103/ul Normal 1.4-6.5 [facility] Comment on above: Performed By: #### H FPFCBC #### [facility] [address] [address] [address] Kartik Wright Neutrophils/100 WBC (Bld) 58.1 % Normal 43.0-75.0 [facility] Comment on above: Performed By: #### H FPFCBC #### [facility] [address] [address] [address] Kartik Wright Platelet mean volume (Bld) [Entitic vol] 9.4 fL Critically low 9.5-13.5 [facility] Comment on above: Performed By: #### H FPFCBC #### [facility] [address] [place] [address] Dr. Kartik Wright PLT 258 103/ul Normal 150-450 [facility] Comment on above: Performed By: #### H FPFCBC #### [facility] [address] [place] [address] Dr. Kartik Wright RBC 4.36 106/ul Normal 4.20-5.40 [facility] Comment on above: Performed By: #### H FPFCBC #### [facility] [address] [place] [address] Dr. Kartik Wright WBC 4.7 103/ul Normal 4.0-11.0 [facility] Comment on above: Performed By: #### H FPFCBC #### [facility] [address] [address] [address] Kartik Wright [facility] GLYCOHEMOGLOB[facility] A1Con 10-10-2021 Glucose [Mass/Vol] 103 mg/dL Normal [facility] Comment on above: Performed By: #### H FPFA1C #### [facility] [address] [place] [address] Dr. Kartik Wright HbA1c (Bld) [Mass fraction] 5.2 % Normal <=6.0 [facility] Comment on above: Performed By: #### H FPFA1C #### [facility] [address] [address] [address] Kartik Wright [facility] PROFILEon 022 Albumin [Mass/Vol] 4.2 g/dL Normal 3.5-5.0 [facility] Comment on above: Performed By: #### H FPF #### [facility] [address] [address] [address] Kartik Wright Albumin/Globulin [Mass ratio] 1.5 {ratio} Normal [facility] Comment on above: Performed By: #### H FPF #### [facility] [address] [place] [address] Dr. Kartik Wright ALP [Catalytic activity/Vol] 81 U/L Normal 38-126 [facility] Comment on above: Performed By: #### H FPF #### [facility] [address] [place] [address] Dr. Kartik Wright ALT [Catalytic activity/Vol] 20 U/L Normal 9-52 [facility] Comment on above: Performed By: #### H FPF #### [facility] [address] [place] [address] Dr. Kartik Wright AST [Catalytic activity/Vol] 19 U/L Normal 14-36 [facility] Comment on above: Performed By: #### H FPF #### [facility] [address] [place] [address] Dr. Kartik Wright Bilirubin [Mass/Vol] 0.5 mg/dL Normal 0.2-1.3 [facility] Comment on above: Performed By: #### H FPF #### [facility] [address] [place] [address] Dr. Kartik Wright Calcium [Mass/Vol] 9.5 mg/dL Normal 8.4-10.[address] [facility] Comment on above: Performed By: #### H FPF #### [facility] [address] [address] [address] Kartik Wright Chloride [Moles/Vol] 103 mmol/L Normal 98-107 [facility] Comment on above: Performed By: #### H FPF #### [facility] [address] [address] [address] Kartik Wright CHOL-HDL RATIO NORM SEE BELOW Normal [facility] Comment on above: Result Comment: 3.3 - 4.4 LOW RISK 4.4 - 7.1 AVERAGE RISK 7.1 - 11.0 MODERATE RISK >11.0 HIGH RISK Performed By: #### H FPF #### [facility] [address] [address] [address] Kartik Wright Cholesterol [Mass/Vol] 221 mg/dL Critically high <=200 [facility] Comment on above: Performed By: #### H FPF #### [facility] [address] [place] [address] Dr. Kartik Wright Cholesterol in HDL [Mass/Vol] 82 mg/dL Normal [facility] Comment on above: Performed By: #### H FPF #### [facility] [address] [place] [address] Dr. Kartik Wright Cholesterol in LDL [Mass/Vol] 129.8 mg/dL Normal [facility] Comment on above: Performed By: #### H FPF #### [facility] [address] [place] [address] Dr. Kartik Wright Cholesterol.total/ Cholesterol in HDL [Mass ratio] 2.7 {ratio} Normal [facility] Comment on above: Performed By: #### H FPF #### [facility] [address] [place] [address] Dr. Kartik Wright CO2 [Moles/Vol] 30.0 mmol/L Normal 22.0-30.0 [facility] Comment on above: Performed By: #### H FPF #### [facility] [address] [place] [address] Dr. Kartik Wright Creatinine [Mass/Vol] 0.82 mg/dL Normal 0.52-1.04 [facility] Comment on above: Performed By: #### H FPF #### [facility] [address] [address] [address] Kartik Wright Globulin (S) [Mass/Vol] 2.8 g/dL Normal [facility] Comment on above: Performed By: #### H FPF #### [facility] [address] [address] [address] Kartik Wright Glucose [Mass/Vol] 95 mg/dL Normal 74-[address] [facility] Comment on above: Performed By: #### H FPF #### [facility] [address] [address] [address] Kartik Wright HDL NORMAL > or = 60 mg/dl - LO W CARDIOVASCULAR RISK <40 mg/dl - HIGH CARDIOVASCULAR RISK Normal [facility] Comment on above: Performed By: #### H FPF #### [facility] [address] [address] [address] Kartik Wright LDL CALC NORMAL SEE BELOW Normal [facility] Comment on above: Result Comment: <100 mg/dl OPTIMAL 100 - 129 mg/dl NEAR OR ABOVE OPTIMAL 130 - 159 mg/dl BORDERLINE HIGH 160 - 189 mg/dl HIGH >190 mg/dl VERY HIGH Performed By: #### H FPF #### [facility] [address] [address] [address] Kartik Wright Potassium [Moles/Vol] 4.3 mmol/L Normal 3.4-5.0 [facility] Comment on above: Performed By: #### H FPF #### [facility] [address] [address] [address] Kartik Wright Protein [Mass/Vol] 7.0 g/dL Normal 6.1-8.[address] [facility] Comment on above: Performed By: #### H FPF #### [facility] [address] [address] [address] Kartik Wright Sodium [Moles/Vol] 141 mmol/L Normal 137-[address] [facility] Comment on above: Performed By: #### H FPF #### [facility] [address] [address] [address] Kartik Wright Triglyceride [Mass/Vol] 46 mg/dL Normal <=150 [facility] Comment on above: Performed By: #### H FPF #### [facility] [address] [address] [address] Kartik Wright TSH 0.858 uIU/mL Normal 0.470-4.680 [facility] Comment on above: Performed By: #### H FPF #### [facility] [address] [place] [address] Dr. Kartik Wright Urea nitrogen [Mass/Vol] 26.0 mg/dL Critically high 7.0-17.0 [facility] Comment on above: Performed By: #### H FPF #### [facility] [address] [place] [address] Dr. Kartik Wright Urea nitrogen/Creatinin e [Mass ratio] 31.7 mg/mg Normal [facility] Comment on above: Performed By: #### H FPF #### [facility] [address] [place] [address] Dr. Kartik Wright VLDL CALC 9.2 mg/dL Normal [facility] Comment on above: Performed By: #### H FPF #### [facility] [address] [place] [address] Dr. Kartik Perera 05-28-2021 L - -------- Specimen: [id number] Received: 05/28/21 Status: YANI Sanabria Num: [id number] Spec Type: Surgical Subm Dr: Dick Jones Jr, DO Tissues: A Colon - Polyp (POLYP DESCENDING) Procedures: HE Stain/2, Gross/Micro L4 -------- Patient Age/Sex Location Account Attending Physician -------- Elisabeth Edwards 70/[facility] [id number] Dick Jones Jr, DO -------- SPEC NUM: [id number] RECD: 05/28/21 STATUS: YANI SONA NUM: [id number] KIESHA: 05/28/[address] [facility] [address]: Dick Jones Jr, DO ENTERED: 05/28/21 [facility] DR: DG TYPE: Surgical DEPT: S ORDERED: HE Stain/2, Gross/Micro L4 ORDERED: HE Stain/2, Gross/Micro L4 Pathological Diagnosis Colon, descending, polyp, polypectomy: - Tubular adenoma. - Polypoid fragment of colon mucosa with hamartomatous features, negative for dysplasia. - Melanosis coli changes. Clinical Information Family history of colon cancer Gross Description Received in formalin labeled with the patient's name, number and polyp descending are 2 pink tissue fragments, 0.3 cm and 0.5 cm. Entirely submitted in one cassette labeled A1. (/NM) Microscopic Description Two glass slides with H E stained material have been examined. The microscopic findings support the above pathologic diagnosis. CPT Codes 58064 -------- -------- Specimen: [id number] Received: 05/28/21 Status: YANI Sanabria Num: [id number] Spec Type: Surgical Subm Dr: Dick Jones Jr, DO Tissues: A Colon - Polyp (POLYP DESCENDING) Procedures: HE Stain/2, Gross/Micro L4 -------- Patient: Elisabeth Edwards [id number] (Continued) -------- Signed (signature on file) Karuna Orellana MD 05/29/21 1236 [facility] COVID-19 Antigenon 1 COVID-19 Antigen Healthcare Worker?: N Ciaran Reference Ciaran Reference Negative SARS-CoV+SARS-CoV-2 (COVID-19) Ag [Presence] in Respiratory specimen by Rapid immunoassay Negative for SARS Antigen by WON COVID19 Blank Space Ciaran Disclaimer Negative results, from patients with symptom Ciaran Disclaimer onset beyond five days, should be treated as Ciaran Disclaimer presumptive and confirmation with a molecular Ciaran Disclaimer assay, if necessary, for patient management, Ciaran Disclaimer may be performed. Negative results do not rule Ciaran Disclaimer out COVID-19 and should not be used as the sole Ciaran Disclaimer basis for treatment or patient management Ciaran Disclaimer decisions, including infection control decisions. Ciaran Disclaimer Negative results should be considered in the Ciaran Disclaimer context of a patient's recent exposures, history Ciaran Disclaimer and the presence of clinical signs and symptoms Ciaran Disclaimer consistent with COVID-19. COVID19 Blank Space Ciaran Disclaimer The Ciaran SARS Antigen WON does not differentiate Ciaran Disclaimer between SARS-CoV and SARS-CoV-2. COVID19 Blank Space Ciaran Disclaimer This test was developed and its performance Ciaran Disclaimer characteristic determined by [employer] and Ciaran Disclaimer validated at [facility]. This Ciaran Disclaimer test has not been FDA cleared or approved. This Ciaran Disclaimer test has been authorized by FDA under an Emergency Use Ciaran Disclaimer Authorization (EUA). This test has been validated Ciaran Disclaimer in accordance with the FDA's Guidance Document (Policy Ciaran Disclaimer for Diagnostics Testing in Laboratories Certified to Ciaran Disclaimer Perform High Complexity Testing under CLIA prior to Ciaran Disclaimer Emergency Use Authorization for Coronavirus Ciaran Disclaimer iseas during the Public Health Emergency) Ciaran Disclaimer issued on November 03, 2019. This test is only authorized Ciaran Disclaimer for the duration of time the declaration that Ciaran Disclaimer circumstances exist justifying the authorization of Ciaran Disclaimer the emergency use of in vitro diagnostic tests for Ciaran Disclaimer detection of SARS-CoV-2 virus and/or diagnosis of Ciaran Disclaimer COVID-19 infection under section 564(b)(1) of the Ciaran Disclaimer Act, 21 U.S.C. 360bbb-3(b)(1), unless the Ciaran Disclaimer authorization is terminated or revoked sooner. PERFORMED BY: [place] [address] PATHOLOGIST CASING TIER CHAR GARCIA M.D. [facility] Comment on above: Performed By: #### C OVID-19 CIARAN, SOFIANEG #### [place] [id number] [facility] Ciaran Ag Negativeon 05-24-20 21 Ciaran Ag Negative Negative Normal Negative [facility] Comment on above: Result Comment: This is a duplicate Ciaran SARS Antigen (WON) result to be used for statistical tracking purpose only. PERFORMED BY: [place] [address] PATHOLOGIST CASING TIER CHAR GARCIA M.D. Performed By: #### C OVID-19 CIARAN, SOFIANEG #### [place] [id number] [facility] Encounters Encounter Date Encounter Type Care Provider Facility Start: 03-28-2024 End: 03-28-2024 ambulatory Jason Santillan Facility:[facility] Burley catherine Start: 03-22-2024 End: 03-22-2024 ambulatory APPLICATIONS TESTER Alesia L [place] Facility:[facility] Burley catherine Start: 02-02-2024 End: 02-02-2024 ambulatory APPLICATIONS TESTER Alesia L [place] Facility:[facility] Burley catherine Start: 01-21-2024 End: 01-21-2024 ambulatory APPLICATIONS TESTER Alesia L [place] Facility:[facility] Ashley ale Start: 08-10-2023 End: 08-10-2023 ambulatory APPLICATIONS TESTER Alesia Taylor Facility:[facility] Ashley ale Start: 10-07-2022 End: 10-08-[address] ELIZABETH ELISE . Facility:[facility] Start: 07-14-2022 End: 07-15-2022 ambulatory PETAR DUBOIS Facility:[facility] Start: 10-10-2021 End: 10-11-[address] ELIZABETH ELISE . Facility: Procedures Date Procedure Procedure Detail Performing Clinician Start: 10-07-2022 PSA screening PETAR DUBOIS Comment on above: Performed By: #### [facility] #### [facility] [address] [place] [address] Dr. Kartik Wright Plan of Treatment Date Care Activity Detail Author Start: 01-16-2025 ambulatory Ambulatory Facility:[facility] Payers Date Payer Category Payer Medicare [id number] 1957 Self-pay [id number] 1957 Unknown [id number] 1950 Unknown [id number] 2.16.84 [id number] 1950 Unknown [id number] 2.16.8 [id number] 1950 Unknown [id number] 2.16.8 [id number] 1950 Unknown [id number] 2.16.8 [id number] 1950 Unknown [id number] 2.16.8 [id number] 1950 Unknown [id number] 2.16.8 [id number] 1950 Unknown [id number] 2.16.8 [id number] Unknown [id number] 2.16.84 [id number] Unknown [id number] 2.16.84 [id number] Clinical Note 03-28-2024 Note Date & Type Note Facility 03-28-2024 Note Patient Education Immunology Allergic Rhinitis, Adult Allergic rhinitis is an allergic reaction that affects the mucous membrane inside the nose. The mucous membrane is the tissue that produces mucus. There are two types of allergic rhinitis: ? Seasonal. This type is also called hay fever and happens only during certain seasons. ? Perennial. This type can happen at any time of the year. Allergic rhinitis cannot be spread from person to person. This condition can be mild, moderate, or severe. It can develop at any age and may be outgrown. What are the causes? This condition is caused by allergens. These are things that can cause an allergic reaction. Allergens may differ for seasonal allergic rhinitis and perennial allergic rhinitis. ? Seasonal allergic rhinitis is triggered by pollen. Pollen can come from grasses, trees, and weeds. ? Perennial allergic rhinitis may be triggered by: ? Dust mites. ? Proteins in a pet's urine, saliva, or dander. Dander is skin cells from a pet. ? Smoke, mold, or car fumes. What increases the risk? You are more likely to develop this condition if you have a family history of allergies or other conditions related to allergies, including: ? Allergic conjunctivitis. This is inflammation of parts of the eyes and eyelids. ? Asthma. This condition affects the lungs and makes it hard to breathe. ? Atopic dermatitis or eczema. This is umbrella repairer (chronic) inflammation of the skin. ? Food allergies. What are the signs or symptoms? Symptoms of this condition include: ? Sneezing or coughing. ? A stuffy nose (nasal congestion), itchy nose, or nasal discharge. ? Itchy eyes and tearing of the eyes. ? A feeling of mucus dripping down the back of your throat (postnasal drip). ? Trouble sleeping. ? Tiredness or fatigue. ? Headache. ? Sore throat. How is this diagnosed? This condition may be diagnosed with your symptoms, medical history, and physical exam. Your health care provider may check for related conditions, such as: ? Asthma. ? Artas eye. This is eye inflammation caused by infection (conjunctivitis). ? Ear infection. ? Upper respiratory infection. This is an infection in the nose, throat, or upper airways. You may also have tests to find out which allergens trigger your symptoms. These may include skin tests or blood tests. How is this treated? There is no cure for this condition, but treatment can help control symptoms. Treatment may include: ? Taking medicines that block allergy symptoms, such as corticosteroids and antihistamines. Medicine may be given as a shot, nasal spray, or pill. ? Avoiding any allergens. ? Being exposed again and again to tiny amounts of allergens to help you build a defense against allergens (immunotherapy). This is done if other treatments have not helped. It may include: ? Allergy shots. These are injected medicines that have small amounts of allergen in them. ? Sublingual immunotherapy. This involves taking small doses of a medicine with allergen in it under your tongue. If these treatments do not work, your health care provider may prescribe newer, stronger medicines. Follow these instructions at home: Avoiding allergens Find out what you are allergic to and avoid those allergens. These are some things you can do to help avoid allergens: ? If you have perennial allergies: ? Replace carpet with wood, tile, or vinyl brandon. Carpet can trap dander and dust. ? Do not smoke. Do not allow smoking in your home. ? Change your heating and air conditioning filters at least once a month. ? If you have seasonal allergies, take these steps during allergy season: ? Keep windows closed as much as possible. ? Plan outdoor activities when pollen counts are lowest. Check pollen counts before you plan outdoor activities. ? When coming indoors, change clothing and shower before sitting on furniture or bedding. ? If you have a pet in the house that produces allergens: ? Keep the pet out of the bedroom. ? Vacuum, sweep, and dust regularly. General instructions ? Take hoqy-wfu-gillicy and prescription medicines only as told by your health care provider. ? Drink enough fluid to keep your urine pale yellow. ? Keep all follow-up visits as told by your health care provider. This is important. Where to find more information ? [employer] [employer]: www.aaaai.org Contact a health care provider if: ? You have a fever. ? You develop a cough that does not go away. ? You make whistling sounds when you breathe (wheeze). ? Your symptoms slow you down or stop you from doing your normal activities each day. Get help right away if: ? You have shortness of breath. This symptom may represent a serious problem that is an emergency. Do not wait to see if the symptom will go away. Get medical help right away. Call your local emergency services (911 in the [place] Do not drive yourself to (more content not included)... [facility] Summary Purpose Family History No Family History Records FoundNo Family History Records FoundNo Family History Records Found Advance Directives No Advanced Directives Records FoundNo Advanced Directives Records FoundNo Advanced Directives Records Found Additional Source Comments INFORMATION SOURCE (unrecogn ized section and content) DATE CREATED AUTHOR 06/01/2021 [facility] DATE CREATED AUTHOR AUTHOR'S ORGANIZ ATION 10/09/2022 [facility] DATE CREATED AUTHOR AUTHOR'S ORGANIZ ATION 03/30/2024 [facility] FOR RECORDS PERTAINING TO PATIENTS WHO ARE OR HAVE BEEN ENROLLED IN A CHEMICAL DEPENDENCY/SUBSTANCEABUSE PROGRAM, SOME INFORMATION MAY BE OMITTED. This clinical summary was aggregated from multiple sources. Caution should be exercised in using it in the provision of clinical care. This summary normalizes information from multiple sources, and as a consequence, information in this document may materially change the coding, format and clinical context of patient data. In addition, data may be omitted in some cases. CLINICAL DECISIONS SHOULD BE BASED ON THE PRIMARY CLINICAL RECORDS. [facility]. provides no warranty or guarantee of the accuracy or completeness of information in this document.
== END 2024-07-18 07:25 | disposition home or self-care (01) ==
LOC: MAMMO 07:27
PROVIDERS: PCP Family Medicine; Visit Provider Obstetrics & Gynecology
DX: Z12.31 Encounter for screening mammogram for malignant neoplasm of breast (principal); Z80.3 Family history of malignant neoplasm of breast; Z80.1 Family history of malignant neoplasm of trachea, bronchus and lung; Z80.0 Family history of malignant neoplasm of digestive organs
CPT/HCPCS: 77063; 77067

== ENCOUNTER 2025-03-02 10:07 | Outpatient (OUT) | payer MEDICARE, OTHER, SELFPAY ==
--- OUTSIDE RECORDS SUMMARY | 2025-03-02 10:15 | XMS_ITS | Encounter Summary ---
Author Organization [facility] Address [address] [place] [address] Care Team Providers Care Bindery Supervisor Name Role Phone Jason Santillan MD Primary Care Provider [phone] Encounter Details Date Type Department Care Team (Late st Contact Info) Description 07/15/2023 Orders Only [facility] [address] [place] [phone] Cari Overton DO [address] [place] [address] Social History Tobacco Use Types Packs/Day Years Used Date Smoking Tobacco: Never Assessed Comments Unknown Sex and Gender Information Value Date Recorded Sex Assigned at Not on file Legal Sex Female 7:21 PM EDT Gender Identity Female 07/20/2023 11:39 AM EST Sexual Orientation Not on file documented as of this encounter Plan of Treatment Upcoming Encounters Date Type Department Care Team (Late st Contact Info) Description 03/27/2025 1:45 PM EDT Office Visit [facility] [address] [place] [phone] Jon Galaviz DO [address] [place] [address] 11/01/2025 9:45 AM EDT Office Visit [facility] [address] [place] [address] Cari Overton DO [address] [place] [address] documented as of this encounter Procedures Procedure Name Priority Date/Time Associated Diagnosis Comments MAMMOGRAM-DIAGNOSTIC* Routine 07/15/2023 2:18 PM EST documented in this encounter Results * MAMMOGRAM-DIAGNOSTIC* (07/15/2023 2:18 PM EST) Anatomical Region Laterality Modality Radiographic Noa ging Cari Overton DO IMG XR PROCEDURES Final Res ult documented in this encounter Visit Diagnoses Not on filedocumented in this encounter Care Teams Bindery Supervisor Relationship Specialty Start Date End Date Jason Santillan MD PCP - General Family Medicine 07/21/23 documented as of this encounter
--- OUTSIDE RECORDS SUMMARY | 2025-03-02 10:15 | XMS_ITS | Encounter Summary ---
Author Organization [facility] Address [address] [place] [place] [address] Care Team Providers Care Motorboat Mechanic Inboard Name Role Phone Jason Santillan MD Primary Care Provider [phone] Encounter Details Date Type Department Care Team (Late Contact Info) Description 07/18/2024 Orders Only [facility] [address] [place] [phone] Cari Overton, [address] [place] [address] Social History Tobacco Use Types Packs/Day Years Used Date Smoking Tobacco: Never Alcohol Use Standard Drinks/Week Comments Yes 0 (1 standard drink = 0.6 oz pure alcohol) Caffeine intake: 1-2 cups per day AUDIT-C Answer Date Recorded Q1: How often do you have a drink containing alc ohol? Monthly or less 07/20/2023 Q2: How many drinks containi ng alcohol do you have on a typical day when you are drinking? 1 or 2 07/20/2023 Q3: How often do you have si x or more drinks on one occasion? Never 07/20/2023 Comments Unknown Sex and Gender Information Value Date Recorded Sex Assigned at Not on file Legal Sex Female 7:21 PM EDT Gender Identity Female 07/20/2023 11:39 AM EST Sexual Orientation Not on file documented as of this encounter Plan of Treatment Upcoming Encounters Date Type Department Care Team (Late Contact Info) Description 03/27/2025 1:45 PM EDT Office Visit [facility] [address] [place] [phone] Jon Galaviz, DO [address] [place] [address] 11/01/2025 9:45 AM EDT Office Visit [facility] [address] [place] [address] Cari Overton DO [address] [place] [address] documented as of this encounter Procedures Procedure Name Priority Date/Time Associated Diagnosis Comments MAMMOGRAM* Routine 07/18/2024 11:20 AM EST documented in this encounter Results * MAMMOGRAM* (07/18/2024 11:20 AM EST) Anatomical Region Laterality Modality Radiographic Noa ging us Cari Overton DO IMG XR PROCEDURES Final Res ult documented in this encounter Visit Diagnoses Not on filedocumented in this encounter Care Teams Motorboat Mechanic Inboard Relationship Specialty Start Date End Date Jason Santillan MD PCP - General Family Medicine 07/21/23 documented as of this encounter
--- OUTSIDE RECORDS SUMMARY | 2025-03-02 10:15 | XMS_ITS | Clinical Summary ---
Author Organization [facility] Address [address] [place] [address] Care Team Providers Care Gate Supervisor Name Role Phone Shanti Roth MD Primary Care Provider Medications Diclofenac Sodium (VOLTAREN) 1 % TOPICAL gelIndications:P ain in joint, ankle and foot,Tibialis posterior tendinitis,Osteo arthrosis, unspecified whether generalized or localized, ankle and foot Apply 4 g to affected area four times daily. 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/14/2011 Osteoarthrosis, unspecified whether generalized or localized, ankle and foot 05/14/2011 Social History Tobacco Use Types Packs/Day Years Used Date Smoking Tobacco: Never Assessed Comments Unknown Sex and Gender Information Value Date Recorded Sex Assigned at Not on file Legal Sex Female 10:11 AM EST Gender Identity Not on file Sexual Orientation Not on file Plan of Treatment Health Maintenance Due Date Last Done Comments Anxiety Screening 1970 Depression Screening 1970 Hepatitis C Screening 1970 DTaP,Tdap,Td Vaccine (1 - Tdap) [address] Colonography 1997 Cologuard (FIT-DNA) 1997 Colonoscopy 1997 Colorectal Cancer Screening 1997 Diabetes Screening 1997 Fecal Occult Blood 1997 Lipid Screening 1997 Sigmoidoscopy 1997 Pneumococcal Vaccine: 50+ (1 of 1 - PCV) 2002 Shingrix Vaccine (1 of 2) 2002 Bone Density Screening 2017 Advance Directive Discussion 08/03/2024 Influenza Vaccine (#1) 2025 RSV Vaccine (1 - 1-dose 75+ series) 2027 Insurance MMO [employer] Care Teams Gate Supervisor Relationship Specialty Start Date End Date Shanti Roth MD [address] [place] [id number] PCP - General Family Medicine 05/06/11
--- OUTSIDE RECORDS SUMMARY | 2025-03-02 10:15 | XMS_ITS | Clinical Summary ---
Author Organization [facility] Address [address] [place] [address] Care Team Providers Care Gum Mixer Name Role Phone Jason Santillan MD Primary Care Provider [phone] Allergies No known active allergies Medications biotin 10 MG tablet Biotin Active Cholecalciferol (Vitamin D3) 1000 units capsule 1 (one) time each day at the same time Active Family History Medical History Relation Name Comments Colon cancer Brother 1 brother Lung cancer Brother 1 brother Myelodysplastic syndrome Father Diabetes Mother Breast cancer Mother's Sister Relation Name Status Comments Brother 3 Daughter Alive 2 Father Mother Mother's Sister Son Social History Tobacco Use Types Packs/Day Years Used Date Smoking Tobacco: Never Tobacco Cessation:Counseling Given: Not Answered Alcohol Use Standard Drinks/Week Comments Yes 0 [...] AM EST Sexual Orientation Not on file Last Filed Vital Signs Vital Sign Reading Time Taken Comments Blood Pressure 130/70 08/09/2024 8:54 AM EST Pulse - - Temperature - - Respiratory Rate - - Oxygen Saturation - - Inhaled Oxygen Concentration - - Weight 49.9 kg (110 lb) 08/09/2024 8:54 AM EST Height 163.8 cm (5' 4.5 ) 07/21/2023 10:58 AM ES T Body Mass Index 18.59 07/21/2023 10:58 AM EST Plan of Treatment Upcoming Encounters Date Type Department Care Team (Late st Contact Info) Description 03/27/2025 1:45 PM EDT Office Visit [facility] [address] [place] [phone] Jon Galaviz, DO [address] [place] [address] 11/01/2025 9:45 AM EDT Office Visit [facility] [address] [place] [address] Cari Overton DO [address] [place] [address] Health Maintenance Due Date Last Done Comments CT Colonography 1952 Colonoscopy 1952 Colorectal Cancer Screening 1950 FIT-DNA 1950 FIT 1950 FOBT 1950 Sigmoidoscopy 1950 Pneumococcal Vaccine: 65+ Ye ars (1 of 1 - PCV) 2002 Influenza Vaccine (#1) 2025 , 05/23/2020, 05/17/2019, Additional history exists Mammogram 07/18/2025 07/18/2024, 07/03, 07/02/2022, Additional history exists Procedures Procedure Name Priority Date/Time Associated Diagnosis Comments MAMMOGRAM* Routine 07/18/2024 11:20 AM EST from Last 3 Months or Most Recently Relevant to Health Maintenance Results * MAMMOGRAM* (07/18/2024 11:20 AM EST) Anatomical Region Laterality Modality Radiographic Noa ging us Cari Overton DO IMG XR PROCEDURES Final Res ult from Last 3 Months or Most Recently Relevant to Health Maintenance Insurance MEDICARE [facility] [place] [id number] Care Teams Gum Mixer Relationship Specialty Start Date End Date Jason Santillan MD PCP - General Family Medicine 07/21/23
--- NOTE | 2025-03-02 10:23 | XR_ITS ---
The [place] [id number] Patient Name: RADHA BARNETT MRN: [id number] date: 1950 Sex: F Assigned Patient Location: [facility] Current Patient Location: [facility] Accession/Order Number: [id number] Exam Date: 03/02/2025 11:09 Report Date: 03/02/2025 11:11 At the request of: CARMINE COTTRELL Procedure: XR ribs LT min 3V w CXR1V PA CHEST WITH 3 VIEWS LEFT RIBS: CLINICAL HISTORY: left rib protrusion COMPARISON: Chest 08/05/2023 FINDINGS: Heart normal in size. Evidence old granulomatous disease. No consolidation pneumothorax pleural effusion or free air. No displaced left-sided rib fracture. XR/XR ribs LT min 3V w CXR1V IMPRESSION: No acute findings. Impression dictated by: Jam Aguilar Jr., D.O. 03/02/2025 11:11 AM Dictation Location: [place] [address] Electronically authenticated by: [id number] Y Date: 03/02/2025 11:11
--- OUTSIDE RECORDS SUMMARY | 2025-03-02 10:35 | XMS_ITS | CCD ---
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 Name Role Phone CARI OVERTON Admitting Unavailable CARI OVERTON Attending Unavailable ELISE ., DR ELIZABETH Hendricks Primary Care Unavailable [place], DR DICK Acharya Consulting Unavailable CARI OVERTON Consulting Unavailable ELISE ., DR ELIZABETH Hendricks Admitting Unavailable ELISE ., DR ELIZABETH Hendricks Attending Unavailable ELISE ., DR ELIZABETH Hendricks Primary Care Unavailable ELISE ., DR ELIZABETH Hendricks Consulting Unavailable ELISE ., DR ELIZABETH Hendricks Admitting Unavailable ELISE ., DR ELIZABETH Hendricks Attending Unavailable ELISE ., DR ELIZABETH Hendricks Primary Care Unavailable ELISE ., DR ELIZABETH Hendricks Consulting Unavailable Jason Santillan MD Primary Care Provider CARI OVERTON Attending Unavailable Alesia Taylor Primary Care Physician [phone] Alesia Taylor Attending Unavailable Alesia Taylor Attending Unavailable BrandonAlesia stahl Attending Unavailable Brandon, Alesia Decker Attending Unavailable Jason Santillan. Attending Unavailable BrandonAlesia stahl Attending Unavailable BrandonAlesia stahl Admitting Unavailable BrandonAlesia Attending Unavailable Brandon, WISAM Decker Attending Unavailable Brandon, WISAM Decker Admitting Unavailable Brandon, WISAM Decker Attending Unavailable Brandon, WISAM Decker Attending Unavailable Allergies Allergy Classification Reported Allergen(s) Allergy Type Date of Onset Reaction(s) Facility (3 sources) Sulfonamide; Translations: [sulfa drugs] Drug allergy Unknown (qualifier value) [facility] [place] Medications Current Medications Medication Drug Class(es) Dates Sig (Normalized) Sig (Original) biotin 10 mg oral tablet (3 sources) biotin 10 MG tab let Biotin Active cholecalciferol 0.025 mg oral capsule (3 sources) Vitamin D Cholecalciferol (Vitamin D3) 1000 units capsule 1 (one) time each day at the same time Active Chondroitin Sulfates (1 source) Start: 01-21-2024 chondroitin mg, Oral, Daily, 1200 mg patient states she takes two per day, Refills(s) 0 Start Date: 01/21/24 Status: Ordered Repeat number: 1 D3 50 mcg (2000 intl units) oral capsule (1 source) Start: 01-21-2024 take 1 capsule by mouth once daily D3 50 mcg (2000 intl units) oral capsule 100 mcg = 2 cap(s), Oral, Daily, Refills(s) 0 Start Date: 01/21/24 Status: Ordered Repeat number: 1 glucosamine hydrochloride 1500 mg oral tablet (1 source) Start: 01-21-2024 glucosamine hydrochloride 1500 mg oral tablet 3,000 mg, 2 tab(s), Oral, Daily, 30 tab(s), Refill(s) 0 Start Date: 01/21/24 Status: Ordered Quantity: 30.0 Unit: tab(s) Repeat number: 1 meloxicam 15 mg oral tablet (3 sources) Nonsteroidal Anti-inflammatory Drug Start: 07-15-2023 End: 08-09-2024 take 1 tablet by mouth once daily meloxicam (Mobic) 15 MG tablet TAKE 1 TABLET BY MOUTH EVERY DAY FOR 30 DAYS 07/15/2023 08/09/2024 Discontinued VITAMIN C, CALCIUM ASCORBATE, PO (3 sources) End: 08-09-2024 VITAMIN C, CALCIUM ASCORBATE, PO Vitamin C 08/09/2024 Discontinued VITAMIN C, CALCI UM ASCORBATE, PO Vitamin C Active Completed/Discontinued Medications Medication Drug Class(es) Dates Sig (Normalized) Sig (Original) Magnesium glycinate (1 source) Start: 01-21-2024 magnesium glycinate See Instructions, Oral 275mg patient states she takes two per day, Refills(s) 0 Start Date: 01/21/24 Status: Ordered Repeat number: 1 Problems Problem Classification Problem Date Documented Date Episodic/Chronic Disorders of lipid metabolism (1 source) Hypercholesterolemia 02-02-2024 Chronic Other bone disease and musculoskeletal deformities (1 source) Other specified disorders of bone density and structure, unspecified site; Translations: [OTH D/O BONE DEN STRUCT UNS SITE] Onset: Episodic Other circulatory disease (1 source) Low blood pressure 08-10-2023 Episodic Other nutritional; endocrine; and metabolic disorders (1 source) Body mass index less than 20 02-02-2024 Episodic Other screening for suspected conditions (not mental disorders or infectious disease) (11 sources) Encounter for screening mammogram for malignant neoplasm of breast; Translations: [Encounter for screening for osteoporosis] Onset: 2 Episodic Other upper respiratory disease (1 source) Seasonal allergy 03-28-2024 Chronic Residual codes; unclassified (1 source) Asymptomatic menopausal state; Translations: [ASYMPTOMATIC MENOPAUSAL STATE] Onset: 2 Episodic Residual codes; unclassified (1 source) Family history of malignant neoplasm of breast; Translations: [FAMILY HX MALIG NEOPLASM OF BREAST] Onset: 2 Episodic Residual codes; unclassified (1 source) Family history of malignant neoplasm of trachea, bronchus and lung; Translations: [FAM HX MALIG NEOPLSM TRACH BRON LNG] Onset: 2 Episodic Residual codes; unclassified (1 source) Family history of malignant neoplasm of digestive organs; Translations: [FAM HX MALIG NEOPLASM DIGESTIV ORGN] Onset: 2 Episodic Residual codes; unclassified (2 sources) Postmenopausal state; Translations: [Asymptomatic menopausal state] 07-22-2024 Episodic Unclassified (1 source) Patient encounter status 01-20-2023 Unclassified (1 source) Severe acute respiratory syndrome coronavirus 2 detected 03-22-2024 Viral infection (1 source) Disease caused by 2019-nCoV 03-28-2024 Results Test Name Value Interpretation Reference Range Facil ity Ambulatory Visit Summaryon 0 02-07-2025 Ambulatory Visit Summary Ambulatory Visit Summary ELISABETH EDWARDS Ruthie :1950 Visit Date:02/07/2025 Ambulatory Visit Instructions Your Diagnosis Hypercholesteremia Hypotension Numbness and tingling of foot BMI < 18.5 Non-smoker Paresthesia of skin Your Care Team Attending Physician - Alesia Berg Primary Care Physician - Alesia Berg This Is Your Medications List Non-Formulary Medication (Vitamin K) cholecalciferol (D3 50 mcg (2000 intl units) oral capsule) chondroitin glucosamine (glucosamine hydrochloride 1500 mg oral tablet) magnesium glycinate Procedures Performed Colonoscopy (05/28/2021), Tubal ligation (08/03/1978), Tonsillectomy. Discharge Vitals Temperature (Temporal Artery) 36.7 ???C Heart Rate (Peripheral) 68 Respiratory Rate 18 Blood Pressure 110/70 Height 163.0 cm Height 64 in Weight 49.0 kg Weight 108.026 lb BMI 18.44 What to do next Scheduled Follow-Up Appointments Thursday2025 8:00 AM EDT Where: [address] [address]- Medications What How Much When Instructions Unchanged [...] states she takes two per day Unchanged Non-Formulary Medication (Vitamin K) Allergies sulfa drugs (Unknown) Problems Ongoing - Any problem that you are currently receiving treatment for. Hypercholesteremia Hypotension Numbness and tingling of foot Primary osteoarthritis, right ankle and foot Seasonal allergies Wellness examination Patient Survey You may receive a survey via text or e-mail asking about your office visit. Please share your experience with us by completing your survey. We appreciate your feedback and thank you for choosing us for your care. Patient Portal You may access all of your results and other medical record information on our secure patient portal. If you are not signed up for this yet, please contact Health Information Management at [phone] to get signed up today. Language Information Language assistance services are available as needed. Normal [facility] Family Medicine Office/Clini c Noteon 02-07-2025 Family Medicine Office/Clinic Note Family Medicine Office/Clinic Note HPI Staff Patient is presenting for yearly checkup Health Maintenance: Colonoscopy: 05/28/21 Dexa: 07/24/22 Mammo: 07/18/24 Pap: 2023 Last Labs: 10/26/24 Right foot has been tingling, happens randomly, mostly notices it when she sits down at night History of Present Illness pt presents today for annual visit Review of Systems PHQ Score Initial Depression Screen Score: 0 SCORE Physical Exam Vitals & Measurements T: 36.7 ???C(Temporal Artery) HR: 68(Peripheral) RR: 18 BP: 110/70 SpO2: 99% HT: 163.0 cm HT: 64 in WT: 108.026 lb WT: 49.0 kg BMI: 18.44 General: alert, no acute distress ENMT: oral mucosa moist, no pharyngeal erythema or exudate Cardiovascular: regular rate and rhythm, normal peripheral perfusion Respiratory: Lungs CTA, respirations non labored Extremities: no deformity, no trauma Neurological: oriented x 4, LOC appropriate for age, CN II-XII intact, motor strength equal & normal bilaterally, speech normal Assessment/Plan 1. Hypercholesteremia (E78.00: Pure hypercholesterolemia, unspecified) discussed cholesterol. she is happy that it is 30 points lower than last year. denies needs at this time. Her OB orders mammograms for her. Is not an any prescription medicaitons. RTC 1 year 2. Hypotension (I95.9: Hypotension, unspecified) pt denies symptoms 3. Numbness and tingling of foot (R20.0: Anesthesia of skin) pt has noticed occasionally in the evening her right foot will feel tingly on the bottom. states it feels like it just falls asleep. if she moves around it will go away. she was seeing Dr. archibald because her ankle is bone on bone. discussed she may have some arthritis or bone spurs that may be pressing on a nerve causing the tingling to occur. she will continue to monitor symptoms. good skin turgor, legs and feet are not cold or discolored. no swelling. 4. BMI < 18.5 (Z68.1: Body mass index [BMI] 19.9 or less, adult) pt maintains healthy life style 5. Non-smoker (Z78.9: Other specified health status) continue not smoking Follow-up No qualifying data available Problem List/Past Medical History Ongoing Hypercholesteremia Hypotension Numbness and tingling of foot Primary osteoarthritis, right ankle and foot Seasonal allergies Wellness examination Historical No qualifying data Procedure/Surgical History Colonoscopy (05/28/2021), Tubal ligation (08/03/1978), Tonsillectomy. Medications chondroitin, Oral, Daily D3 50 mcg (2000 intl units) oral capsule, 100 mcg= 2 cap(s), Oral, Daily glucosamine hydrochloride 1500 mg oral tablet, 3000 mg= 2 tab(s), Oral, Daily magnesium glycinate, See Instructions Vitamin K Allergies sulfa drugs (Unknown) Social History Alcohol - Low Risk, 01/21/2024 Current, Wine, 1-2 times per month, 01/16/2025 Current. Wine. 1-2 times per month., 01/11/2025 Substance Abuse - Denies Substance Abuse, 01/21/2024 Never, 01/16/2025 Tobacco - Denies Tobacco Use, 01/21/2024 Never (less than 100 in lifetime) Tobacco Use:., 02/07/2025 Family History Diabetes mellitus type 2: Mother. Hyperlipidemia: Mother. Primary malignant neoplasm of colon: Brother. Immunizations Vaccine Date Status Comments influenza virus [...] A pediatric vaccine 06/26/2008 Recorded Normal [facility] Comment on above: Result Comment: Elec tronically Signed By: Alesia Berg\.br\Date and Time Signed: 02/07/25 09:26 EDT Ambulatory Visit Summaryon 0 01-16-2025 Ambulatory Visit Summary Ambulatory Visit Summary ELISABETH EDWARDS :1950 Visit Date:01/16/2025 Ambulatory Visit Instructions Your Diagnosis Encounter for subsequent annual wellness visit (AWV) in Medicare patient Hypercholesteremia Hypotension Screening declined by patient Vaccination declined Family history of diabetes mellitus Family history of colon cancer Your Care Team Attending Physician - Alesia Berg Primary Care Physician - Alesia Berg This Is Your Medications List Non-Formulary Medication (Vitamin K) cholecalciferol (D3 50 mcg (2000 intl units) oral capsule) chondroitin glucosamine (glucosamine hydrochloride 1500 mg oral tablet) magnesium glycinate Procedures Performed Colonoscopy (05/28/2021), Tubal ligation (08/03/1978), Tonsillectomy. Discharge Vitals Heart Rate (Peripheral) 57 Blood Pressure 110/60 Height 163 cm Height 64 in Weight 50.6 kg Weight 111.554 lb BMI 19.04 What to do next Scheduled Follow-Up Appointments Thursday 9:00 AM EDT With: Alesia Berg Where: [address] [address]- Thursday2025 8:00 AM EDT With: Where: [address] [address]- Medications What How Much When Instructions Unchanged [...] states she takes two per day Unchanged Non-Formulary Medication (Vitamin K) Allergies sulfa drugs (Unknown) Problems Ongoing - Any problem that you are currently receiving treatment for. BMI less than 19,adult Body mass index (BMI) of 19.0-19.9 in adult COVID Hypercholesteremia Hypotension Lab test positive for detection of COVID-19 virus Seasonal allergies Wellness examination Patient Survey You may receive a survey via text or e-mail asking about your office visit. Please share your experience with us by completing your survey. We appreciate your feedback and thank you for choosing us for your care. Education Materials Preventing Colorectal Cancer Colorectal cancer is a cancerous (malignant) tumor in the colon or rectum, which are parts of the large intestine. A tumor is a mass of cells or tissue. If this cancer is not found early, it can spread to other parts of the body and can be life-threatening. It is one of the most commonly diagnosed types of cancer and a leading cause of related to cancer. Colorectal cancer cannot always be prevented, but you can take steps to lower your risk of developing it. How can this condition affect me? Most often, colorectal cancer starts as abnormal growths called polyps on the inner wall of the colon or rectum. Left untreated, these polyps can develop into cancer. You can help prevent colorectal cancer by having screening tests to check for these early signs of cancer. During screening, polyps may be removed to be checked for cancer cells and possibly to prevent them from becoming cancerous. If you delay recommended screenings, it is possible that any existing cancer will grow and spread before it is found. Along with regular screenings, making changes to your diet and lifestyle can help prevent colorectal cancer. What can increase my risk? Certain factors may make you more likely to develop this condition. Risk factors that can be changed ??? Being inactive (sedentary). ??? Being overweight or obese. ??? Having a diet that: ? Is high in red meat, precooked or cured meat, or other processed meat, and high in fat (especially animal fat). ? Is low in sources of fiber, such as fruits, vegetables, and whole grains. ? Includes large amounts of sugar-sweetened beverages. ??? Drinking too much alcohol. ??? Smoking. Risk factors that cannot be changed ??? Being older than age 50. ??? Having a personal or family history of colorectal cancer or polyps in your colon. ??? Having a type of genetic syndrome that is passed from parent to child (hereditary), such as: ? Sow syndrome. ? Familial adenomatous polyposis. ? Turcot syndrome. ? Peutz???Jeghers syndrome. ? MUTYH-associated polyposis (MAP). ??? Having certain other conditions, such as: ? Inflammatory bowel disease. This includes ulcerative colitis or Crohn's disease. ? Diabetes. ? A history of cancer that was treated with radiation to the abdomen or the area between the hip bones (pelvic area). What actions can I take to prevent this? Nutrition ??? Eat plenty of fruits and vegetables. Try to eat at (more content not included)... Normal [facility] Family Medicine Office/Clini c Chata 01-16-2025 Family Medicine Office/Clinic Note Family Medicine Office/Clinic Note Chief Complaint Subsequent Medicare Wellness Review of Systems PHQ Score Initial Depression Screen Score: 0 SCORE Physical Exam Vitals & Measurements HR: 57(Peripheral) BP: 110/60 SpO2: 99% HT: 64 in HT: 163 cm WT: 111.554 lb WT: 50.6 kg BMI: 19.04 Assessment/Plan 1. Encounter for subsequent annual wellness visit (AWV) in Medicare patient (Z00.00: Encounter for general adult medical examination without abnormal findings) Patient in office today for her Subsequent Medicare Wellness Visit. A customized and personalized print out of all the current AHRQ USPSTF???s recommendations for preventative services and all current CDC recommended immunizations, relevant risk recommendations and the following patient brochures were given. Reviewed What can I expect during my Medicare preventative care visit CDC-Falls Prevention and home safety screening reviewed. Patient denies any falls in last 12 months, voices no worry about falling, exhibits no problems with sitting and standing. Pt voices understanding with keeping walk way area free of clutter to prevent tripping and/or falling. [place] Advance Directives reviewed, patient has at home. Will bring in to be scanned into chart. Patient denies any problems with ADL???s and Instrumental ADL???s. Cognitive screening completed with memory and clock face drawing. Immunization Record reviewed with the patient. Discussed Shingrix vaccine and availability. 2 COVID vaccines have been administered. Allergies and medications reviewed and up to date. Patient denies concerns with taking medication as prescribed, reviewed OTC medications with patient with medication list up to date. Blood tests were reviewed: UTD. Colonoscopy up to date, last was 05/28/2021. Patient due for repeat 05/2026. DEXA scan is up to date, last was 07/14/2022. Repeat is due 07/2025. Last Mammogram was 07/18/2024, repeat will be due 07/2025. Patient reports that SURVEY DIRECTOR Dr. Overton orders tests. Reviewed concerns with bladder control over past 6 months with no concerns. Reviewed pain symptoms with patient: Denies pain today. Reviewed all outside providers that patient follows. Last visit summary notes available in chart and/or have been requested. Follow up scheduled: 02/07/2025 AWV has been scheduled: 01/16/2026 Medicare provides yearly screening for alcohol and depression concerns. This is completed during our Medicare wellness visit for those who do not have a current diagnosis of depression or concerns with alcohol use. I spent a total of (12) minutes on this date of service which included preparing to see the patient, face to face patient care, completing clinical documentation, obtaining and/or reviewing separately obtained history, counseling and educating the patient with handouts. Explanations were provided with reviewing questionnaires. AUDIT risk assessment screening completed, risk score(1) with patient denying concerns with use. Completed PHQ-2 risk assessment for depression with risk score(0), negative findings. Patient has been reminded to notify the provider if there would be a change or concerns with symptoms with fear, unable to sleep, worrying too much or feeling down and/or sad with lost of interest with daily activities. Will continue to monitor with screening yearly during Medicare wellness visits. 2. Hypercholesteremia (E78.00: Pure hypercholesterolemia, unspecified) Reviewed healthy lifestyle with low fat diet and exercise regimen. When you are overweight our body produces more lipids. Risk also increases with family history of hyperlipidemia and with monitoring alcohol use and avoid smoking. Pt voices understanding with importance of monitoring dietary intake to reduce risk factors associated with CVA. Patient uses diet to control. Will continue to follow up with office visits with updated labs as directed. Handout provided to patient from the [place] [employer] How to Control Cholesterol . 3. Hypotension (I95.9: Hypotension, unspecified) Patient monitors blood pressure daily at home. Patient blood pressure today 110/60. Patient follows up with pcp as directed. 4. Screening declined by patient (Z53.20: Procedure and treatment not carried out because of patient's decision for unspecified reasons) Discussed with patient the risk of Hepatitis C for people born between 2434-6101. Handout CDC-Hepatitis C given. Patient declines to have labs drawn for Hepatitis C screening based on year of . 5. Vaccination declined (Z28.21: Immunization not carried out because of patient refusal) Pneumococcal vaccines declined with today's visit. Advised all appropriate vaccines available in office if ever she may chose. 6. Family history of diabetes mellitus (Z83.3: Family history of diabetes mellitus) Patient screened for diabetes with risk score of (4), discussed family history with increased risk for diabetes. DM stoplight handout reviewed with symptoms to monitor for and report to PCP. (more content not included)... Normal [facility] Comment on above: Result Comment: Elec tronically Signed By: Alesia Berg\.br\Date and Time Signed: 01/16/25 09:48 EDT\.br\Electronically Co-Signed By: Mallory Ocampo\.br\Date and Time Co-Signed: 01/16/25 09:02 EDT Reminderson 10-27-2024 Reminders Reminders From: Alesia Berg To: B - Clinical; Sent: 10/27/2024 08:44:53 EDT Show up: 10/27/2024 08:44:00 EDT Subject: Ambulatory Reminder Due Date/Time: 10/28/2024 08:43:00 EDT cholesterol was slightly elevated. encourage her to decrease greasy, fried, fatty foods. also BUN was slightly elevated encourage her to increase water intake. otherwise labs look good. Results: Date Result Name Ind Value Ref Range 10/26/2024 9:16 WBC 5.1 E9/L (4.0 - 11.0) 10/26/2024 9:16 RBC 4.4 E12/L (4.3 - 5.9) 10/26/2024 9:16 HGB 13.6 gm/dL (12.0 - 16.0) 10/26/2024 9:16 Hct 40.5 % (34.0 - 46.0) 10/26/2024 9:16 MCV 91.6 fL (80.0 - 100.0) 10/26/2024 9:16 MCH 30.7 pg (27.0 - 34.0) 10/26/2024 9:16 MCHC 33.5 gm/dL (31.4 - 36.0) 10/26/2024 9:16 RDW 13.2 % (10.9 - 14.2) 10/26/2024 9:16 Platelet 288.0 E9/L (150.0 - 500.0) 10/26/2024 9:16 MPV 8.6 fL (6.4 - 10.8) 10/26/2024 9:16 Neutro Auto 59.6 % (36.0 - 75.0) 10/26/2024 9:16 Lymph Auto 28.5 % (14.0 - 50.0) 10/26/2024 9:16 Mills Auto 9.4 % (4.0 - 14.0) 10/26/2024 9:16 Eos Auto 1.4 % (0.0 - 8.0) 10/26/2024 9:16 Basophil Auto 1.1 % (0.0 - 2.0) 10/26/2024 9:16 Neutro Absolute 3.1 E9/L (2.0 - 7.5) 10/26/2024 9:16 Lymph Absolute 1.5 E9/L (1.0 - 4.0) 10/26/2024 9:16 Mills Absolute 0.5 E9/L (0.2 - 1.0) 10/26/2024 9:16 Eos Absolute 0.1 E9/L (0.0 - 0.5) 10/26/2024 9:16 Basophil Absolute 0.1 E9/L (0.0 - 0.2) 10/26/2024 9:16 Glucose Lvl 81 mg/dL (55 - 199) 10/26/2024 9:16 BUN (H) 27 mg/dL (5 - 21) 10/26/2024 9:16 Creatinine 0.9 mg/dL (0.5 - 1.3) 10/26/2024 9:16 eGFR 68 mL/min/1.73 m2 (>=59 - ) 10/26/2024 9:16 BUN/Creat Ratio (H) 30 (10 - 20) 10/26/2024 9:16 Sodium Lvl 137 mmol/L (135 - 145) 10/26/2024 9:16 Potassium Lvl 4.9 mmol/L (3.5 - 5.3) 10/26/2024 9:16 Chloride 104 mmol/L (101 - 111) 10/26/2024 9:16 CO2 26 mmol/L (21 - 31) 10/26/2024 9:16 AGAP 12 mEq/L (6 - 16) 10/26/2024 9:16 Calcium Lvl 10.0 mg/dL (8.9 - 11.1) 10/26/2024 9:16 Alk Phos 73 Int._Unit/L (21 - 98) 10/26/2024 9:16 ALT 16 Int._Unit/L (6 - 46) 10/26/2024 9:16 AST 21 Int._Unit/L (5 - 43) 10/26/2024 9:16 Total Protein 7.2 gm/dL (6.0 - 7.8) 10/26/2024 9:16 Albumin Lvl 4.6 gm/dL (3.3 - 5.0) 10/26/2024 9:16 Globulin 2.6 gm/dL (1.4 - 4.0) 10/26/2024 9:16 A/G Ratio 1.8 (1.1 - 2.2) 10/26/2024 9:16 Bili Total 0.7 mg/dL (0.0 - 1.1) 10/26/2024 9:16 Chol (H) 204 mg/dL (120 - 200) 10/26/2024 9:16 Trig 58 mg/dL ( - <=149) 10/26/2024 9:16 HDL 73 mg/dL 10/26/2024 9:16 LDL Direct (H) 130 mg/dL ( - <=129) 10/26/2024 9:16 VLDL 12 mg/dL (7 - 40) 10/26/2024 9:16 TSH 1.39 mcIU/mL (0.34 - 5.60) From: Elicia Mondragon M.A. (B - Clinical) To: Alesia Berg; Sent: 10/27/2024 09:37:44 EDT Show up: 10/27/2024 09:36:00 EDT Subject: RE: Ambulatory Reminder left detailed message (did identify self) Normal [facility] CBC w/ Auto Diffon 5 Basophils/100 WBC (Bld) 1.1 % Normal 0.0-2.0 [facility] Comment on above: Performed By: #### 2 [id number] #### [facility] [address] [place] [address] Basophils/Leukocytes Auto (Bld) [Pure # fraction] 0.1 E9/L Normal 0.0-0.2 [facility] Comment on above: Performed By: #### 2 [id number] #### [facility] [address] [place] [address] Eosinophils (Bld) [#/Vol] 0.1 E9/L Normal 0.0-0.5 [facility] Comment on above: Performed By: #### 2 [id number] #### [facility] [address] [place] [address] Eosinophils/100 WBC (Bld) 1.4 % Normal 0.0-8.0 [facility] Comment on above: Performed By: #### 2 [id number] #### [facility] [address] [place] [address] Erythrocyte distribution width (RBC) [Ratio] 13.2 % Normal 10.9-14.2 [facility] Comment on above: Performed By: #### 2 [id number] #### [facility] [address] [place] [address] Hematocrit (Bld) [Volume fraction] 40.5 % Normal 34.0-46.0 [facility] Comment on above: Performed By: #### 2 [id number] #### [facility] [address] [place] [address] Hemoglobin (Bld) [Mass/Vol] 13.6 g/dL Normal 12.0-16.0 [facility] Comment on above: Performed By: #### 2 [id number] #### [facility] [address] [place] [address] Lymphocytes (Bld) [#/Vol] 1.5 E9/L Normal 1.0-4.0 [facility] Comment on above: Performed By: #### 2 [id number] #### [facility] [address] [place] [address] Lymphocytes/100 WBC (Bld) 28.5 % Normal 14.0-50.0 [facility] Comment on above: Performed By: #### 2 [id number] #### [facility] [address] [place] [address] MCH (RBC) [Entitic mass] 30.7 pg Normal 27.0-34.0 [facility] Comment on above: Performed By: #### 2 [id number] #### [facility] [address] [place] [address] MCHC (RBC) [Mass/Vol] 33.5 g/dL Normal 31.4-36.0 [facility] Comment on above: Performed By: #### 2 [id number] #### [facility] [address] [place] [address] MCV (RBC) [Entitic vol] 91.6 fL Normal 80.0-100.0 [facility] Comment on above: Performed By: #### 2 [id number] #### [facility] [address] [place] [address] Monocytes (Bld) [#/Vol] 0.5 E9/L Normal 0.2-1.0 [facility] Comment on above: Performed By: #### 2 [id number] #### [facility] [address] [place] [address] Neutrophils (Bld) [#/Vol] 3.1 E9/L Normal 2.0-7.5 [facility] Comment on above: Performed By: #### 2 [id number] #### [facility] [address] [place] [address] Neutrophils/100 WBC (Bld) 59.6 % Normal 36.0-75.0 [facility] Comment on above: Performed By: #### 2 [id number] #### [facility] [address] [place] [address] Platelet 288.0 E9/L Normal 150.0-500.0 [facility] Comment on above: Performed By: #### 2 [id number] #### [facility] [address] [place] [address] Platelet mean volume (Bld) [Entitic vol] 8.6 fL Normal 6.4-10.8 [facility] Comment on above: Performed By: #### 2 [id number] #### [facility] [address] [place] [address] RBC (Bld) [#/Vol] 4.4 E12/L Normal 4.3-5.9 [facility] Comment on above: Performed By: #### 2 [id number] #### [facility] [address] [place] [address] WBC corrected for nucl RBC Auto (Bld) [#/Vol] 5.1 E9/L Normal 4.0-11.0 [facility] Comment on above: Performed By: #### 2 [id number] #### [facility] [address] [place] [address] CHEMISTRYOrdered By: SYSTEM SYSTEM on 10-26-2024 Albumin [Mass/Vol] 4.6 g/dL Normal 3.3 - 5.0 gm/dL R emisol Chem Albumin/Globulin [Mass ratio] 1.8 {ratio} Normal 1.1 - 2.2 [facility] ALP [Catalytic activity/Vol] 73 [iU]/d Normal 21 - 98 Int._Unit/L [facility] ALT No additional P-5'-P [Catalytic activity/Vol] 16 [iU]/d Normal 6 - 46 Int._Unit/L [facility] Anion gap [Moles/Vol] 12 mmol/L Normal 6 - 16 mEq/L [facility] AST [Catalytic activity/Vol] 21 [iU]/d Normal 5 - 43 Int._Unit/L [facility] Bilirubin [Mass/Vol] 0.7 mg/dL Normal 0.0 - 1.1 mg/dL [facility] Calcium [Mass/Vol] 10.0 mg/dL Normal 8.9 - 11.1 mg/dL [facility] Chloride [Moles/Vol] 104 mmol/L Normal 101 - 111 mmol/ L [facility] Cholesterol [Mass/Vol] 204 mg/dL High 120 - 200 mg/dL [facility] Cholesterol in HDL [Mass/Vol] 73 mg/dL Invalid Interpretation Code [facility] Comment on above: Result Comment: '>= 60 LOW RISK' '<= 40 HIGH RISK' Cholesterol in LDL [Mass/Vol] 130 mg/dL High <=129mg/dL [facility] Cholesterol in VLDL [Mass/Vol] 12 mg/dL Normal 7 - 40 mg/dL [facility] CO2 [Moles/Vol] 26 mmol/L Normal 21 - 31 mmol/L Remis ol Chem Creatinine [Mass/Vol] 0.9 mg/dL Normal 0.5 - 1.3 mg/dL [facility] eGFR 68 mL/min/1.73 m2 Normal >=59mL/min /1.73 m2 [facility] Globulin (S) [Mass/Vol] 2.6 g/dL Normal 1.4 - 4.0 gm/dL [facility] Glucose [Mass/Vol] 81 mg/dL Normal 55 - 199 mg/dL Re misol Chem Potassium [Moles/Vol] 4.9 mmol/L Normal 3.5 - 5.3 mmol/L [facility] Protein [Mass/Vol] 7.2 g/dL Normal 6.0 - 7.8 gm/dL R emisol Chem Sodium [Moles/Vol] 137 mmol/L Normal 135 - 145 mmol/L [facility] Triglyceride [Mass/Vol] 58 mg/dL Normal <=149mg/dL [facility] TSH Qn 1.39 m[IU]/L Normal 0.34 - 5.60 mcIU/mL [facility] Urea nitrogen [Mass/Vol] 27 mg/dL High 5 - 21 mg/dL [facility] Urea nitrogen/Creatinine [Mass ratio] 30 mg/mg High 10 - 20 [facility] CMPon 10-26-2024 Albumin [Mass/Vol] 4.6 g/dL Normal 3.3-5.0 [facility] Comment on above: Performed By: #### 2 [id number] #### [facility] [address] [place] [address] Albumin/Globulin (S) [Mass conc ratio] 1.8 Normal 1.1-2.2 [facility] Comment on above: Performed By: #### 2 [id number] #### [facility] [address] [place] [address] ALP [Catalytic activity/Vol] 73 Int._Unit/L Normal 21-98 [facility] Comment on above: Performed By: #### 2 [id number] #### [facility] [address] [place] [address] ALT No additional P-5'-P [Catalytic activity/Vol] 16 Int._Unit/L Normal 6-46 [facility] Comment on above: Performed By: #### 2 [id number] #### [facility] [address] [place] [address] Anion gap [Moles/Vol] 12 mmol/L Normal 6-16 [facility] Comment on above: Performed By: #### 2 [id number] #### [facility] [address] [place] [address] AST [Catalytic activity/Vol] 21 Int._Unit/L Normal 5-43 [facility] Comment on above: Performed By: #### 2 [id number] #### [facility] [address] [place] [address] Bilirubin [Mass/Vol] 0.7 mg/dL Normal 0.0-1.1 [facility] Comment on above: Performed By: #### 2 [id number] #### [facility] [address] [place] [address] Calcium [Mass/Vol] 10.0 mg/dL Normal 8.9-11.1 [facility] Comment on above: Performed By: #### 2 [id number] #### [facility] [address] [place] [address] Chloride [Moles/Vol] 104 mmol/L Normal 101-111 [facility] Comment on above: Performed By: #### 2 862004 #### [facility] [address] [place] [address] CO2 [Moles/Vol] 26 mmol/L Normal 21-31 [facility] Comment on above: Performed By: #### 2 793568 #### [facility] [address] [place] [address] Creatinine [Mass/Vol] 0.9 mg/dL Normal 0.5-1.3 [facility] Comment on above: Performed By: #### 2 147789 #### [facility] [address] [place] [address] Globulin (S) [Mass/Vol] 2.6 g/dL Normal 1.4-4.0 [facility] Comment on above: Performed By: #### 2 [id number] #### [facility] [address] [place] [address] Glucose [Mass/Vol] 81 mg/dL Normal 55-199 [facility] Comment on above: Performed By: #### 2 141166 #### [facility] [address] [place] [address] Potassium [Moles/Vol] 4.9 mmol/L Normal 3.5-5.3 [facility] Comment on above: Performed By: #### 2 854035 #### [facility] [address] [place] [address] Protein [Mass/Vol] 7.2 g/dL Normal 6.0-7.8 [facility] Comment on above: Performed By: #### 2 [id number] #### [facility] [address] [place] [address] Sodium [Moles/Vol] 137 mmol/L Normal 135-145 [facility] Comment on above: Performed By: #### 2 [id number] #### [facility] [address] [place] [address] Urea nitrogen [Mass/Vol] 27 mg/dL High 5-21 [facility] Comment on above: Performed By: #### 2 [id number] #### [facility] [address] [place] [address] Urea nitrogen/Creatinine [Mass ratio] 30 No Units High 10-20 [facility] Comment on above: Performed By: #### 2 [id number] #### [facility] [address] [place] [address] HEMATOLOGYOrdered By: SYSTEM SYSTEM on 10-26-2024 Basophils/100 WBC (Bld) 1.1 % Normal 0.0 - 2.0 % [facility] Basophils/Leukocytes Auto (Bld) [Pure # fraction] 0.1 E9/L Normal 0.0 - 0.2 E9/L [facility] Eosinophils (Bld) [#/Vol] 0.1 E9/L Normal 0.0 - 0.5 E9/L [facility] Eosinophils/100 WBC (Bld) 1.4 % Normal 0.0 - 8.0 % [facility] Erythrocyte distribution width (RBC) [Ratio] 13.2 % Normal 10.9 - 14.2 % [facility] Hematocrit (Bld) [Volume fraction] 40.5 % Normal 34.0 - 46.0 % [facility] Hemoglobin (Bld) [Mass/Vol] 13.6 g/dL Normal 12.0 - 16.0 gm/dL [facility] Lymphocytes (Bld) [#/Vol] 1.5 E9/L Normal 1.0 - 4.0 E9/L [facility] Lymphocytes/100 WBC (Bld) 28.5 % Normal 14.0 - 50.0 % [facility] MCH (RBC) [Entitic mass] 30.7 pg Normal 27.0 - 34.0 pg [facility] MCHC (RBC) [Mass/Vol] 33.5 g/dL Normal 31.4 - 36.0 gm/dL [facility] MCV (RBC) [Entitic vol] 91.6 fL Normal 80.0 - 100.0 fL [facility] Monocytes (Bld) [#/Vol] 0.5 E9/L Normal 0.2 - 1.0 E9/L [facility] Monocytes/100 WBC (Bld) 9.4 % Normal 4.0 - 14.0 % [facility] Neutrophils (Bld) [#/Vol] 3.1 E9/L Normal 2.0 - 7.5 E9/L [facility] Neutrophils/100 WBC (Bld) 59.6 % Normal 36.0 - 75.0 % [facility] Platelet 288.0 E9/L Normal 150.0 - 500.0 E9/L [facility] Platelet mean volume (Bld) [Entitic vol] 8.6 fL Normal 6.4 - 10.8 fL [facility] RBC (Bld) [#/Vol] 4.4 E12/L Normal 4.3 - 5.9 E12/L Re misol Heme WBC corrected for nucl RBC Auto (Bld) [#/Vol] 5.1 E9/L Normal 4.0 - 11.0 E9/L [facility] Lipid Panelon 10-26-2024 Cholesterol [Mass/Vol] 204 mg/dL High 120-200 [facility] Comment on above: Performed By: #### 2 [id number] #### [facility] [address] [place] [address] Cholesterol in HDL [Mass/Vol] 73 mg/dL Invalid Interpretation Code [facility] Comment on above: Result Comment: '>= 60 LOW RISK' '<= 40 HIGH RISK' Performed By: #### 2 [id number] #### [facility] [address] [place] [address] Cholesterol in LDL [Mass/Vol] 130 mg/dL High <=129 [facility] Comment on above: Performed By: #### 2 [id number] #### [facility] [address] [place] [address] Cholesterol in VLDL [Mass/Vol] 12 mg/dL Normal 7-40 [facility] Comment on above: Performed By: #### 2 [id number] #### [facility] [address] [place] [address] Triglyceride [Mass/Vol] 58 mg/dL Normal <=149 [facility] Comment on above: Performed By: #### 2 299119 #### [facility] [address] [place] [address] TSHon 10-26-2024 TSH Qn 1.39 m[IU]/L Normal 0.34-5.60 [facility] Comment on above: Performed By: #### 2 974887 #### [facility] [address] [place] [address] eGFRon 10-26-2024 eGFR 68 mL/min/1.73 m2 Normal >=59 [facility] Comment on above: Performed By: #### 1 [id number] #### [facility] [address] [place] [address] Ambulatory Visit Summaryon 0 03-28-2024 Ambulatory Visit Summary Ambulatory Visit Summary ERICKAJACKIERuthie Hendricks :1950 Visit Date:03/28/2024 Ambulatory Visit Instructions Your Diagnosis BMI less than 19,adult Nonsmoker Your Care Team Attending Physician - Jason Santillan MD Primary Care Physician - Alseia Berg This Is Your Medications List benzonatate [...] Follow-Up Appointments Thursday 8:00 AM EDT Where: [place] [id number]- Medications What How Much When Why Instructions [...] for choosing us for your care. Normal [facility] Medicine Office/Clini c Noteon 03-28-2024 [...] Today patient is feeling better. Cough is drier feeder. Patient is feeling better. Physical Exam Vitals [...] A pediatric vaccine 06/26/2008 Recorded Normal [facility] Comment on above: Result Comment: Elec tronically Signed By: Tyrell CAVAZOS, Jason Jenkins\.br\Date and Time Signed: 03/28/24 09:19 EDT Ambulatory [...] Follow-Up Appointments Thursday 8:00 AM EDT Where: [place] [id number]- Medications What How Much When Instructions Unchanged [...] for choosing us for your care. Normal [facility] Medicine Office/Clini c Noteon 03-22-2024 Family [...] day(s), # 6 tab(s), Refills(s) 0, Pharmacy: [facility]/pharmacy #[id number], 163, cm, 03/22/24 9:02:00 EDT, Height/Length Dosing, 49.8, kg, 03/22/24 9:02:00 EDT, Weight Dosing benzonatate, 200 mg = 1 cap(s), Oral, TID, X 7 day(s), # 21 cap(s), Refills(s) 0, Pharmacy: [facility]/pharmacy #[id number], 163, cm, 03/22/24 9:02:00 EDT, Height/Length Dosing, 49.8, kg, 03/22/24 9:02:00 EDT, Weight Dosing methylPREDNISolone, = 1 packet(s), Oral, As Directed, as directed on package labeling, X 6 day(s), # 21 tab(s), Refills(s) 0, Pharmacy: [facility]/pharmacy #[id number], 163, cm, 03/22/24 9:02:00 EDT, Height/Length Dosing, 49.8, kg, 03/22/24 9:02:00 EDT, Weight Dosing 2. BMI less than 19,adult (Z68.1: Body mass index [BMI] 19.9 or less, adult) BMI education Ordered: azithromycin, = 1 packet(s), Oral, As Directed, as directed on package labeling, X 5 day(s), # 6 tab(s), Refills(s) 0, [id number], cm, 03/22/24 9:02:00 EDT, Height/Length Dosing, 49.8, kg, 03/22/24 9:02:00 EDT, Weight Dosing benzonatate, 200 mg = 1 cap(s), Oral, TID, X 7 day(s), # 21 cap(s), Refills(s) 0, [id number] 163, cm, 03/22/24 9:02:00 EDT, Height/Length Dosing, 49.8, kg, 03/22/24 9:02:00 EDT, Weight Dosing methylPREDNISolone, = 1 packet(s), Oral, As Directed, as directed on package labeling, X 6 day(s), # 21 tab(s), Refills(s) 0, [id number] 163, cm, 03/22/24 9:02:00 EDT, Height/Length Dosing, 49.8, kg, 03/22/24 9:02:00 EDT, Weight Dosing Body Mass Index (BMI) documented 3008F Current tobacco non-user 1036F Depression Screening Negative 3352F Discharge medications reconciled with current medications in outpatient record 1111F Falls plan of care documented 0518F Medication list documented in medical record 1159F Rapid COVID POC 94739 Review of all meds by a prescribing practitioner or clinical pharmacist documented in EHR 1160F 3. Non-smoker (Z78.9: Other specified health status) continue not smoking Ordered: azithromycin, = 1 packet(s), Oral, As Directed, as directed on package labeling, X 5 day(s), # 6 tab(s), Refills(s) 0, [id number] 163, cm, 03/22/24 9:02:00 EDT, Height/Length Dosing, 49.8, kg, 03/22/24 9:02:00 EDT, Weight Dosing benzonatate, 200 mg = 1 cap(s), Oral, TID, X 7 day(s), # 21 cap(s), Refills(s) 0, [id number] 163, cm, 03/22/24 9:02:00 EDT, Height/Length Dosing, 49.8, kg, 03/22/24 9:02:00 EDT, Weight Dosing methylPREDNISolone, = 1 packet(s), Oral, As Directed, as directed on package labeling, X 6 day(s), # 21 tab(s), Refills(s) 0, [id number] 163, cm, 03/22/24 9:02:00 EDT, Height/Length [...] 1.00 d (more content not included)... Normal [facility] Comment on above: Result Comment: Elec [...] Follow-Up Appointments Thursday 8:00 AM EDT Where: [facility] [place] Normal [facility] Medicine Office/Clini c Noteon 02-02-2024 [...] A pediatric vaccine 06/26/2008 Recorded Normal [facility] Comment on above: Result Comment: Elec tronically [...] Primary Care Physician - Jason Santillan MD This Is Your Medications List cholecalciferol (D3 [...] 10:00 AM EDT With: Alesia Berg Where: [facility] Normal [address] [place] [address] \.br\ Medications\.br\ What How Much When Instructions\.br\ [...] healthy, it is recommended that you do moderate-intensit y and vigorous-intensit y exercise. You can tell that you are [...] \.br\ A total of 150 minutes of moderate-intensit y exercise every week.\.br\ ? \.br\ A total of 75 minutes of vigorous-intensit y exercise every week.\.br\ ? \.br\ A mix of moderate-intensit y and vigorous-intensit y exercise every week.\.br\ Children, women, people who have not exercised regularly, people who are overweight, and older adults may need to talk with a health care provider about what activities are safe to perform. If you have a medical condition, be sure to talk with your health care provider before you start a new exercise program.\.br\ What are some exercise ideas?\.br\ \.br\ Moderate-intensit y exercise ideas include:\.br\ ? \.br\ Walking 1 mile (1.6 km) in about 15 minutes.\.br\ ? \.br\ Biking.\.br\ ? \.br\ Hiking.\.br\ ? \.br\ Golfing.\.br\ ? \.br\ Dancing.\.br\ ? \.br\ Water aerobics.\.br\ Vigorous-intensit y exercise ideas include:\.br\ ? \.br\ Walking 4.5 [...] work, such as:\.br\ ? \.br\ Pushing a stained glass window designer.\.br\ ? \.br\ Raking and bagging leaves.\.br\ ? [...] provider.\.br\ Document Revised: 11/15/2021 Document Reviewed: 11/15/2021 [employer] Patient Education ? 2022 [employer].br\ Healthy Eating\.br\ Following a healthy eating [...] and high polyunsaturated and monounsaturated fats.\. [facility] Medicine Office/Clini c Noteon 01-21-2024 Family [...] of clutter to prevent tripping and/or falling. [place] Advance Directives reviewed. Documents remain at home [...] gets repeat colonoscopies every five years at [facility] due to family history of Colon Cancer. [...] this time, states she follows up with ÁNGEL Martinez, in July and usually gets her Mammogram and Dexa Screening ordered through Dr. Meléndez. Discussed with patient the risk of Hepatitis C for people born between 8682-3201. Handout CDC-Hepatitis C given. Patient declines to [...] units) oral (more content not included)... Normal [facility] Comment on above: Result Comment: Elec tronically Signed By: Alesia Berg\.br\Date and Time Signed: 01/21/24 12:39 EDT\.br\Electronically Co-Signed By: Emelina Greco LPN\.br\Date and Time Co-Signed: 01/21/24 12:15 EDT Patient Educationon 01-21-20 Patient Education Nutrition Healthy Eating Following a [...] water. ? Keep raw meats separate from pvxgv-zh-[id number] foods, such as fruits and vegetables. ? over short and damage clerk, meat, poultry, and eggs to the recommended [...] include 1 slice of bread, 1 cup [id number]-cc-[id number] cereal, 3 cups popcorn, or ? cup [...] per day (more content not included)... Normal [facility] Screenson 01-21-2024 Screens [id number]. [id number] Normal [facility] CBC AUTO DIFFon 10-07-2022 BASO # 0.1 103/ul Normal 0.0-0.1 [facility] Comment on above: Performed By: #### H FPFCBC #### [facility] [address] [place] [address] Dr. Kartik Wright Basophils/100 WBC (Bld) 0.9 % Normal 0.2-2.0 [facility] Comment on above: Performed By: #### H FPFCBC #### [facility] [address] [place] [address] [address] Kartik Wright EO # 0.1 103/ul Normal 0.0-0.7 [facility] Comment on above: Performed By: #### H FPFCBC #### [facility] [address] [place] [address] [address] Kartik Wright Eosinophils/100 WBC (Bld) 2.3 % Normal 0.9-7.0 [facility] Comment on above: Performed By: #### H FPFCBC #### [facility] [address] [place] [address] Dr. Kartik Wright Erythrocyte distribution width (RBC) [Ratio] 12.4 % Normal 11.0-15.0 [facility] Comment on above: Performed By: #### H FPFCBC #### [facility] [address] [place] [address] Dr. Kartik Wright Hematocrit (Bld) [Volume fraction] 40.7 % Normal 36.0-48.0 [facility] Comment on above: Performed By: #### H FPFCBC #### [facility] [address] [place] [address] Dr. Kartik Wright Hemoglobin (Bld) [Mass/Vol] 13.4 g/dL Normal 12.0-16.0 [facility] Comment on above: Performed By: #### H FPFCBC #### [facility] [address] [place] [address] Dr. Kartik Wright IG # 0.02 10e3/ul Normal 0.00-0.03 [facility] Comment on above: Performed By: #### H FPFCBC #### [facility] [address] [place] [address] Dr. Kartik Wright IG % 0.4 % Normal 0.0-0.5 [facility] Comment on above: Performed By: #### H FPFCBC #### [facility] [address] [place] [address] Dr. Kartik Wright LYMPH # 1.3 103/ul Normal 1.2-3.8 [facility] Comment on above: Performed By: #### H FPFCBC #### [facility] [address] [place] [address] Dr. Kartik Wright Lymphocytes/100 WBC (Bld) 23.8 % Normal 20.5-60.0 [facility] Comment on above: Performed By: #### H FPFCBC #### [facility] [address] [place] [address] Dr. Kartik Wright MCH (RBC) [Entitic mass] 30.2 pg Normal 26.7-34.0 [facility] Comment on above: Performed By: #### H FPFCBC #### [facility] [address] [place] [address] Dr. Kartik Wright MCHC (RBC) [Mass/Vol] 32.9 g/dL Normal 29.9-35.2 [facility] Comment on above: Performed By: #### H FPFCBC #### [facility] [address] [place] [address] Dr. Kartik Wright MCV (RBC) [Entitic vol] 91.7 fL Normal 81.0-99.0 [facility] Comment on above: Performed By: #### H FPFCBC #### [facility] [address] [place] [address] Dr. Kartik Wright MONO # 0.5 103/ul Normal 0.3-0.8 [facility] Comment on above: Performed By: #### H FPFCBC #### [facility] [address] [place] [address] Dr. Kartik Wright Monocytes/100 WBC (Bld) 8.7 % Normal 1.7-12.0 [facility] Comment on above: Performed By: #### H FPFCBC #### [facility] [address] [place] [address] Dr. Kartik Wright NEUT # 3.4 103/ul Normal 1.4-6.5 [facility] Comment on above: Performed By: #### H FPFCBC #### [facility] [address] [place] [address] Dr. Kartik Wright Neutrophils/100 WBC (Bld) 63.9 % Normal 43.0-75.0 [facility] Comment on above: Performed By: #### H FPFCBC #### [facility] [address] [place] [address] Dr. Kartik Wright Platelet mean volume (Bld) [Entitic vol] 9.6 fL Normal 9.5-13.5 [facility] Comment on above: Performed By: #### H FPFCBC #### [facility] [address] [place] [address] Dr. Kartik Wright PLT 259 103/ul Normal 150-450 [facility] Comment on above: Performed By: #### H FPFCBC #### [facility] [address] [place] [address] Dr. Kartik Wright RBC 4.44 106/ul Normal 4.20-5.40 [facility] Comment on above: Performed By: #### H FPFCBC #### [facility] [address] [place] [address] Dr. Kartik Wright WBC 5.3 103/ul Normal 4.0-11.0 [facility] Comment on above: Performed By: #### H FPFCBC #### [facility] [address] [place] [address] Dr. Kartik Wright [facility] GLYCOHEMOGLOBIN A1Con 10-07-2022 Glucose [Mass/Vol] 111 mg/dL Normal [facility] [facility] Comment on above: Performed By: #### H FPFA1C #### [facility] [address] [place] [address] Dr. Kartik Wright HbA1c (Bld) [Mass fraction] 5.5 % Normal 4.5-6.2 [facility] Comment on above: Performed By: #### H FPFA1C #### [facility] [address] [place] [address] Dr. [facility]art[facility]-2022 Albumin [Mass/Vol] 3.9 g/dL Normal 3.4-5.0 [facility] Comment on above: Performed By: #### H FPFM #### [facility] [address] [place] [address] Dr. Kartik Wright Albumin/Globulin [Mass ratio] 1.2 {ratio} Normal [facility] Comment on above: Performed By: #### H FPFM #### [facility] [address] [place] [address] Dr. Kartik Wright ALP [Catalytic activity/Vol] 77 U/L Normal 46-116 [facility] Comment on above: Performed By: #### H FPFM #### [facility] [address] [place] [address] Dr. Kartik Wright ALT [Catalytic activity/Vol] 16 U/L Normal 14-59 [facility] Comment on above: Performed By: #### H FPFM #### [facility] [address] [place] [address] Dr. Kartik Wright AST [Catalytic activity/Vol] 20 U/L Normal 15-37 [facility] Comment on above: Performed By: #### H FPFM #### [facility] [address] [address] [address] Kartik Wright Bilirubin [Mass/Vol] 0.5 mg/dL Normal 0.2-1.0 [facility] Comment on above: Performed By: #### H FPFM #### [facility] [address] [address] [address] Kartik Wright Calcium [Mass/Vol] 9.5 mg/dL Normal 8.5-10.1 [facility] Comment on above: Performed By: #### H FPFM #### [facility] [address] [address] [address] Kartik Wright Chloride [Moles/Vol] 106 mmol/L Normal 98-107 [facility] Comment on above: Performed By: #### H FPFM #### [facility] [address] [place] [address] Dr. Kartik Wright CHOL-HDL RATIO NORM SEE BELOW Normal [facility] Comment on above: Result Comment: 3.3 - 4.4 LOW RISK 4.4 - 7.1 AVERAGE RISK 7.1 - 11.0 MODERATE RISK >11.0 HIGH RISK Performed By: #### H FPFM #### [facility] [address] [place] [address] Dr. Kartik Wright Cholesterol [Mass/Vol] 217 mg/dL Critically high <=200 [facility] Comment on above: Performed By: #### H FPFM #### [facility] [address] [place] [address] Dr. Kartik Wright Cholesterol in HDL [Mass/Vol] 83 mg/dL Critically high 40-60 [facility] Comment on above: Performed By: #### H FPFM #### [facility] [address] [address] [address] Kartik Wright Cholesterol in LDL [Mass/Vol] 126.6 mg/dL Normal [facility] Comment on above: Performed By: #### H FPFM #### [facility] [address] [place] [address] Dr. Kartik Wright Cholesterol.total/Ch olesterol in HDL [Mass ratio] 2.6 {ratio} Normal [facility] Comment on above: Performed By: #### H FPFM #### [facility] [address] [address] [address] Kartik Wright CO2 [Moles/Vol] 30.8 mmol/L Normal 21.0-32.0 [facility] Comment on above: Performed By: #### H FPFM #### [facility] [address] [address] [address] Kartik Wright Creatinine [Mass/Vol] 0.76 mg/dL Normal 0.55-1.02 [facility] Comment on above: Performed By: #### H FPFM #### [facility] [address] [address] [address] Kartik Wright Globulin (S) [Mass/Vol] 3.2 g/dL Normal [facility] Comment on above: Performed By: #### H FPFM #### [facility] [address] [address] [address] Kartik Wright Glucose [Mass/Vol] 87 mg/dL Normal 74-106 [facility] Comment on above: Performed By: #### H FPFM #### [facility] [address] [address] [address] Kartik Wright HDL NORMAL > or = 60 mg/dl - LO W CARDIOVASCULAR RISK <40 mg/dl - HIGH CARDIOVASCULAR RISK Normal [facility] Comment on above: Performed By: #### H FPFM #### [facility] [address] [address] [address] Kartik Wright LDL CALC NORMAL SEE BELOW Normal [facility] Comment on above: Result Comment: <100 mg/dl OPTIMAL 100 - 129 mg/dl NEAR OR ABOVE OPTIMAL 130 - 159 mg/dl BORDERLINE HIGH 160 - 189 mg/dl HIGH >190 mg/dl VERY HIGH Performed By: #### H FPFM #### [facility] [address] [address] [address] Kartik Wright Potassium [Moles/Vol] 4.0 mmol/L Normal 3.5-5.1 [facility] Comment on above: Performed By: #### H FPFM #### [facility] [address] [address] [address] Kartik Wright Protein [Mass/Vol] 7.1 g/dL Normal 6.4-8.2 [facility] Comment on above: Performed By: #### H FPFM #### [facility] [address] [place] [address] Dr. Kartik Wright Sodium [Moles/Vol] 144 mmol/L Normal 136-145 [facility] Comment on above: Performed By: #### H FPFM #### [facility] [address] [address] [address] Kartik Wright Triglyceride [Mass/Vol] 37 mg/dL Normal <=150 [facility] Comment on above: Performed By: #### H FPFM #### [facility] [address] [place] [address] Dr. Kartik Wright TSH 1.039 uIU/mL Normal 0.358-3.740 [facility] Comment on above: Performed By: #### H FPFM #### [facility] [address] [place] [address] Dr. Kartik Wright Urea nitrogen [Mass/Vol] 25.0 mg/dL Critically high 7.0-18.0 [facility] Comment on above: Performed By: #### H FPFM #### [facility] [address] [place] [address] Dr. Kartik Wright Urea nitrogen/Creatinine [Mass ratio] 32.9 mg/mg Normal [facility] Comment on above: Performed By: #### H FPFM #### [facility] [address] [place] [address] Dr. Kartik Wright VLDL CALC 7.4 mg/dL Normal [facility] Comment on above: Performed By: #### H FPFM #### [facility] [address] [place] [address] Dr. Kartik Wright MG MAMM SCREEN 3D JUSTO CADon 07-14-2022 MG MAMM SCREEN 3D JUSTO CAD Patient: ELISABETH EDWARDS Exam Date: 07/14/2022 : 1950 Gender:F Ordering : DR. CARI OVERTON D.O. Admission #: [id number] Family : Order #: [id number] CLICK HERE TO VIEW EXAM RADIOLOGY REPORT [...] at age 72. LOCATION: [facility] BREAST COMPOSITION: Heterogeneously dense,which may obscure [...] Olmstead MD on 07/14/2022 at 12:56 Normal [facility] XR DEXA BONE DENSITYon 07-14 XR DEXA BONE DENSITY EXAMINATION: XR DEX A BONE DENSITY, 07/14/2022 10:58 AM EST HISTORY: [...] by: DICK OLMSTEAD Date: 2022-07-14 17:49 Normal [facility] CBC AUTO DIFFon 10-10-2021 BASO # 0.1 103/ul Normal 0.0-0.1 [facility] Comment on above: Performed By: #### H FPFCBC #### [facility] [address] [place] [address] Dr. Kartik Wright Basophils/100 WBC (Bld) 1.3 % Normal 0.2-2.0 [facility] Comment on above: Performed By: #### H FPFCBC #### [facility] [address] [place] [address] Dr. Kartik Wright EO # 0.1 103/ul Normal 0.0-0.7 [facility] Comment on above: Performed By: #### H FPFCBC #### [facility] [address] [place] [address] Dr. Kartik Wright Eosinophils/100 WBC (Bld) 1.7 % Normal 0.9-7.0 [facility] Comment on above: Performed By: #### H FPFCBC #### [facility] [address] [place] [address] Dr. Kartik Wright Erythrocyte distribution width (RBC) [Ratio] 12.1 % Normal 11.0-15.0 [facility] Comment on above: Performed By: #### H FPFCBC #### [facility] [address] [place] [address] Dr. Kartik Wright Hematocrit (Bld) [Volume fraction] 41.3 % Normal 36.0-48.0 [facility] Comment on above: Performed By: #### H FPFCBC #### [facility] [address] [place] [address] Dr. Kartik Wright Hemoglobin (Bld) [Mass/Vol] 13.5 g/dL Normal 12.0-16.0 [facility] Comment on above: Performed By: #### H FPFCBC #### [facility] [address] [place] [address] Dr. Kartik Wright IG # 0.01 10e3/ul Normal 0.00-0.03 [facility] Comment on above: Performed By: #### H FPFCBC #### [facility] [address] [place] [address] Dr. Kartik Wright IG % 0.2 % Normal 0.0-0.5 [facility] Comment on above: Performed By: #### H FPFCBC #### [facility] [address] [place] [address] Dr. Kartik Wright LYMPH # 1.4 103/ul Normal 1.2-3.8 [facility] Comment on above: Performed By: #### H FPFCBC #### [facility] [address] [place] [address] Dr. Kartik Wright Lymphocytes/100 WBC (Bld) 29.1 % Normal 20.5-60.0 [facility] Comment on above: Performed By: #### H FPFCBC #### [facility] [address] [place] [address] Dr. Kartik Wright MCH (RBC) [Entitic mass] 31.0 pg Normal 26.7-34.0 [facility] Comment on above: Performed By: #### H FPFCBC #### [facility] [address] [place] [address] Dr. Kartik Wright MCHC (RBC) [Mass/Vol] 32.7 g/dL Normal 29.9-35.2 [facility] Comment on above: Performed By: #### H FPFCBC #### [facility] [address] [place] [address] Dr. Kartik Wright MCV (RBC) [Entitic vol] 94.7 fL Normal 81.0-99.0 [facility] Comment on above: Performed By: #### H FPFCBC #### [facility] [address] [place] [address] Dr. Kartik Wright MONO # 0.5 103/ul Normal 0.3-0.8 [facility] Comment on above: Performed By: #### H FPFCBC #### [facility] [address] [place] [address] Dr. Kartik Wright Monocytes/100 WBC (Bld) 9.6 % Normal 1.7-12.0 [facility] Comment on above: Performed By: #### H FPFCBC #### [facility] [address] [place] [address] Dr. Kartik Wright NEUT # 2.7 103/ul Normal 1.4-6.5 [facility] Comment on above: Performed By: #### H FPFCBC #### [facility] [address] [address] [address] Kartik Wright Neutrophils/100 WBC (Bld) 58.1 % Normal 43.0-75.0 [facility] Comment on above: Performed By: #### H FPFCBC #### [facility] [address] [address] [address] Kartik Wright Platelet mean volume (Bld) [Entitic vol] 9.4 fL Critically low 9.5-13.5 [facility] Comment on above: Performed By: #### H FPFCBC #### [facility] [address] [place] [address] Dr. Kartik Wright PLT 258 103/ul Normal 150-450 [facility] Comment on above: Performed By: #### H FPFCBC #### [facility] [address] [place] [address] Dr. Kartik Wright RBC 4.36 106/ul Normal 4.20-5.40 [facility] Comment on above: Performed By: #### H FPFCBC #### [facility] [address] [place] [address] Dr. Kartik Wright WBC 4.7 103/ul Normal 4.0-11.0 [facility] Comment on above: Performed By: #### H FPFCBC #### [facility] [address] [address] [address] Kartik Wright [facility] GLYCOHEMOGLOBIN A1Con 10-10-2021 Glucose [Mass/Vol] 103 mg/dL Normal [facility] Comment on above: Performed By: #### H FPFA1C #### [facility] [address] [address] [address] Kartik Wright HbA1c (Bld) [Mass fraction] 5.2 % Normal <=6.0 [facility] Comment on above: Performed By: #### H FPFA1C #### [facility] [address] [place] [address] Dr. Kartik Wright [employer] PROFILEon 022 Albumin [Mass/Vol] 4.2 g/dL Normal 3.5-5.0 [facility] Comment on above: Performed By: #### H FPF #### [facility] [address] [place] [address] Dr. Kartik Wright Albumin/Globulin [Mass ratio] 1.5 {ratio} Normal [facility] Comment on above: Performed By: #### H FPF #### [facility] [address] [place] [address] Dr. Kartik Wright ALP [Catalytic activity/Vol] 81 U/L Normal 38-126 [facility] Comment on above: Performed By: #### H FPF #### [facility] [address] [place] [address] Dr. Kartik Wright ALT [Catalytic activity/Vol] 20 U/L Normal 9-52 [facility] Comment on above: Performed By: #### H FPF #### [facility] [address] [place] [address] Dr. Kartik Wright AST [Catalytic activity/Vol] 19 U/L Normal 14-36 [facility] Comment on above: Performed By: #### H FPF #### [facility] [address] [place] [address] Dr. Kartik Wright Bilirubin [Mass/Vol] 0.5 mg/dL Normal 0.2-1.3 [facility] Comment on above: Performed By: #### H FPF #### [facility] [address] [place] [address] Dr. Kartik Wright Calcium [Mass/Vol] 9.5 mg/dL Normal 8.4-10.2 [facility] Comment on above: Performed By: #### H FPF #### [facility] [address] [place] [address] Dr. Kartik Wright Chloride [Moles/Vol] 103 mmol/L Normal 98-107 [facility] Comment on above: Performed By: #### H FPF #### [facility] [address] [place] [address] Dr. Kartik Wright CHOL-HDL RATIO NORM SEE BELOW Normal [facility] Comment on above: Result Comment: 3.3 - 4.4 LOW RISK 4.4 - 7.1 AVERAGE RISK 7.1 - 11.0 MODERATE RISK >11.0 HIGH RISK Performed By: #### H FPF #### [facility] [address] [address] [address] Kartik Wright Cholesterol [Mass/Vol] 221 mg/dL Critically high <=200 [facility] Comment on above: Performed By: #### H FPF #### [facility] [address] [address] [address] Kartik Wright Cholesterol in HDL [Mass/Vol] 82 mg/dL Normal [facility] Comment on above: Performed By: #### H FPF #### [facility] [address] [address] [address] Kartik Wright Cholesterol in LDL [Mass/Vol] 129.8 mg/dL Normal [facility] Comment on above: Performed By: #### H FPF #### [facility] [address] [address] [address] Kartik Wright Cholesterol.total/Ch olesterol in HDL [Mass ratio] 2.7 {ratio} Normal [facility] Comment on above: Performed By: #### H FPF #### [facility] [address] [address] [address] Kartik Wright CO2 [Moles/Vol] 30.0 mmol/L Normal 22.0-30.0 [facility] Comment on above: Performed By: #### H FPF #### [facility] [address] [address] [address] Kartik Wright Creatinine [Mass/Vol] 0.82 mg/dL Normal 0.52-1.04 [facility] Comment on above: Performed By: #### H FPF #### [facility] [address] [address] [address] Kartik Wright Globulin (S) [Mass/Vol] 2.8 g/dL Normal [facility] Comment on above: Performed By: #### H FPF #### [facility] [address] [address] [address] Kartik Wright Glucose [Mass/Vol] 95 mg/dL Normal 74-106 [facility] Comment on above: Performed By: #### H FPF #### [facility] [address] [address] [address] Kartik Wright HDL NORMAL > or = 60 mg/dl - LO W CARDIOVASCULAR RISK <40 mg/dl - HIGH CARDIOVASCULAR RISK Normal [facility] Comment on above: Performed By: #### H FPF #### [facility] [address] [address] [address] Kartik Wright LDL CALC NORMAL SEE BELOW Normal [facility] Comment on above: Result Comment: <100 mg/dl OPTIMAL 100 - 129 mg/dl NEAR OR ABOVE OPTIMAL 130 - 159 mg/dl BORDERLINE HIGH 160 - 189 mg/dl HIGH >190 mg/dl VERY HIGH Performed By: #### H FPF #### [facility] [address] [place] [address] Dr. Kartik Wright Potassium [Moles/Vol] 4.3 mmol/L Normal 3.4-5.0 [facility] Comment on above: Performed By: #### H FPF #### [facility] [address] [place] [address] Dr. Kartik Wright Protein [Mass/Vol] 7.0 g/dL Normal 6.1-8.2 [facility] Comment on above: Performed By: #### H FPF #### [facility] [address] [address] [address] Kartik Wright Sodium [Moles/Vol] 141 mmol/L Normal 137-145 [facility] Comment on above: Performed By: #### H FPF #### [facility] [address] [place] [address] Dr. Kartik Wright Triglyceride [Mass/Vol] 46 mg/dL Normal <=150 [facility] Comment on above: Performed By: #### H FPF #### [facility] [address] [place] [address] Dr. Kartik Wright TSH 0.858 uIU/mL Normal 0.470-4.680 [facility] Comment on above: Performed By: #### H FPF #### [facility] [address] [address] [address] Kartik Wright Urea nitrogen [Mass/Vol] 26.0 mg/dL Critically high 7.0-17.0 [facility] Comment on above: Performed By: #### H FPF #### [facility] [address] [place] [address] Dr. Kartik Wright Urea nitrogen/Creatinine [Mass ratio] 31.7 mg/mg Normal [facility] Comment on above: Performed By: #### H FPF #### [facility] [address] [place] [address] Dr. Kartik Wright VLDL CALC 9.2 mg/dL Normal [facility] Comment on above: Performed By: #### H FPF #### [facility] [address] [place] [address] Dr. Kartik Perera 05-28-2021 L - -------- Specimen: [id number] Received: 05/28/21 Status: YANI Sanabria Num: [id number] Spec Type: Surgical Subm Dr: Dick Jones Jr, DO Tissues: A Colon - Polyp (POLYP DESCENDING) Procedures: HE Stain/2, Gross/Micro L4 -------- Patient Age/Sex Location Account Attending Physician -------- Elisabeth Edwards 70/F [id number] Dick Jones Jr, DO -------- SPEC NUM: [id number] RECD: 05/28/21 STATUS: YANI SANABRIA NUM: [id number] KIESHA: 05/28/21 [facility] DR: Dick Jones Jr, DO ENTERED: 05/28/21 [facility] DR: DG TYPE: Surgical DEPT: [...] support the above pathologic diagnosis. CPT Codes 90437 -------- -------- Specimen: [id number] Received: 05/28/21 Status: YANI Sanabria Num: [id number] Spec Type: Surgical Subm Dr: Dick Jones Jr, DO Tissues: A Colon - Polyp (POLYP DESCENDING) Procedures: HE Stain/2, Gross/Micro L4 -------- Patient: Elisabeth Edwards [id number] (Continued) -------- Signed (signature on file) Karuna Orellana MD 05/29/21 1236 [facility] COVID-19 Antigenon 1 COVID-19 Antigen Healthcare Worker?: [...] its performance Ciaran Disclaimer characteristic determined by [employer] and Ciaran Disclaimer validated at [facility]. This Ciaran Disclaimer test has not been [...] Emergency Use Authorization for Coronavirus Ciaran Disclaimer isease-2019 during the Public Health Emergency) Ciaran Disclaimer [...] is terminated or revoked sooner. PERFORMED BY: [place] [address] PATHOLOGIST STAVE CUTTING SUPERVISOR CHAR GARCIA M.D. Normal [facility] Comment on above: Performed By: #### C OVID-19 CIARAN, SOFIANEG #### [address] Ciaran Ag Negativeon 05-24-20 21 Ciaran Ag Negative Negative Normal Negative [facility] Comment on above: Result Comment: This is a duplicate Ciaran SARS Antigen (WON) result to be used for statistical tracking purpose only. PERFORMED BY: [place] [address] PATHOLOGIST STAVE CUTTING SUPERVISOR CHAR GARCIA M.D. Performed By: #### C OVID-19 CIARAN, SOFIANEG #### [address] Vital Signs Date Time Vital Sign Value Performing Clinician Alexandre rashid 08-09-2024 08:54-0500 Body mass index (BMI) [Ratio] 18.59 kg/m2 [employer] DO Work Phone: [facility] 08-09-2024 08:54-0500 Body weight 49.9 kg [employer] DO Work Phone: [facility] 08-09-2024 08:54-0500 Diastolic blood pressure 70 mm[Hg] Cari [employer] DO Work Phone: [facility] 08-09-2024 08:54-0500 Systolic blood pressure 130 mm[Hg] Cari Brooklynn DO Work Phone: [facility] Healthcare Encounters Encounter Date Encounter Type Care Provider Facility Start: 01-16-2026 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 ASSISTANT Alesia L Brandon Facil ity:[facility] Start: 02-07-2025 End: 02-07-2025 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 COURSE ASSISTANT Alesia L Brandon Facility: [facility] Start: 01-16-2025 End: 01-16-2025 ambulatory Alesia L Brandon Facility: [facility] Start: 10-26-2024 End: 10-27-2024 ambulatory Alesia L Brandon Facility:[facility] Start: 10-26-2024 End: 10-27-2024 Lab Drop off Alesia L Brandon [facility] Start: 08-09-2024 End: 08-09-2024 Bamboo flowsheet Cari Overton DO Work Phone: [facility] Start: 08-09-2024 End: 08-09-2024 Bamboo flowsheet Cari E Brooklynn DO Work Phone: [facility] Start: 08-09-2024 End: 08-09-2024 Patient encounter status Cari E Brooklynn DO Work Phone: [facility] Start: 08-09-2024 End: 08-09-2024 Periodic preventive med est patient 65yrs& older Cari Ruthie Poolekes DO Work Phone: [facility] Comment on above: Encounter for gyneco logical examination without abnormal finding; Screening for malignant neoplasm of cervix; Encounter for screening mammogram for breast cancer; Postmenopausal status, age-related; Screening for osteoporosis Start: 08-09-2024 End: 08-09-2024 ambulatory CARI OVERTON Not Available Start: 03-28-2024 End: 03-28-2024 ambulatory Jason Santillan Facility:[facility] [place] Start: 03-22-2024 End: 03-22-2024 ambulatory Alesia L Brandon Facility:[facility] [place] Start: 02-02-2024 End: 02-02-2024 ambulatory Alesia L Brandon Facility:[facility] [place] Start: 01-21-2024 End: 01-21-2024 ambulatory Alesia L Brandon [facility] Start: 10-07-2022 End: 10-08-[address] ELIZABETH ELISE . Facility: Start: 07-14-2022 End: 07-15-2022 ambulatory CARI OVERTON Facility: Start: 10-10-2021 End: 10-11-[address] ELIZABETH ELISE . Facility: Procedures Date Procedure Procedure Detail Performing Clinician Start: 07-18-2024 Mammography Cari carmona DO Work Phone: Start: 10-07-2022 PSA screening CARI OVERTON Comment on above: Performed By: #### [facility] #### [facility] [address] [place] [address] Dr. Kartik Wright Start: 08-03-1978 Ligation of fallopian tube Alesia Taylor Tonsillectomy Alesia Taylor Plan of Treatment Date Care Activity Detail Author Start: 11-01-2025 End: 11-01-2025 Patient encounter procedure 11/01/2025 9:45 AM EDT Office Visit [facility] [address] [place] [phone] Cari Overton DO [address] [place] [address] [facility] Start: 07-18-2025 Screening for malign ant neoplasm of breast Mammogram [facility] Start: 08-09-2024 End: 10-07-2025 DBT Breast - bilateral screening Bilateral screening mammogram with tomosynthesis Imaging Routine Encounter for screening mammogram for breast cancer Expected: 08/09/2024, Expires: 10/07/2025 [facility] Comment on above: Expected: 08/09/2024 , Expires: 10/07/2025 Start: 08-09-2024 End: 08-09-2024 Patient encounter procedure 08/09/2024 9:00 AM EST Office Visit [facility] [address] [place] [phone] Cari Overton DO [address] [place] [address] Encounter for gynecological examination without abnormal finding; Screening for malignant neoplasm of cervix; Encounter for screening mammogram for breast cancer; Osteoporosis screening; Postmenopausal status, age-related [facility] Comment on above: Encounter for gyneco logical examination without abnormal finding; Screening for malignant neoplasm of cervix; Encounter for screening mammogram for breast cancer; Osteoporosis screening; Postmenopausal status, age-related Start: 04-03-2024 Influenza vaccination Influenza Vacc ine (#1) [facility] Start: 2017 Pneumococcal Vaccine : 65+ Years (1 of 1 - PCV) Pneumococcal Vaccine: 65+ Years (1 of 1 - PCV) [facility] Start: 1950 Screening for malign ant neoplasm of colon [facility] DXA Skeletal system Views for bone density DEXA bone density Imaging Routine Postmenopausal status, age-related Screening for osteoporosis Ordered: 08/09/2024 [facility] Comment on above: Ordered: 08/09/2024 IGP, RFX APTIMA HPV ASCU IGP, RFX APTIMA HPV ASCU Lab Routine Screening for malignant neoplasm of cervix Ordered: 08/09/2024 [facility] Work Phone: Comment on above: Ordered: 08/09/2024 Immunizations Immunization Date Immunization Notes Care Provider Fa cility 06-17-2021 influenza virus vaccine, unspecified formulation Cari Overton DO Work Phone: [facility] [place] 10-26-2020 SARS-CoV-2 (COVID-19 ) mRNA BNT-162b2 vax Alesia Brandon [facility] Comment on above: Reason for Medicatio n: Prophylaxis 10-05-2020 SARS-CoV-2 (COVID-19 ) mRNA BNT-162b2 vax Alesia Brandon [facility] Comment on above: Reason for Medicatio n: Prophylaxis 05-23-2020 influenza virus vaccine, unspecified formulation Alesia Brandon [facility] 05-17-2019 influenza virus vaccine, unspecified formulation Alesia Brandon [facility] 05-24-2018 influenza virus vaccine, unspecified formulation Alesia Brandon [facility] 05-27-2017 influenza virus vaccine, unspecified formulation Alesia Brandon [facility] 05-14-2017 influenza virus vaccine, unspecified formulation Alesia Brandon [facility] 05-21-2016 influenza virus vaccine, unspecified formulation Alesia Brandon [facility] 05-05-2016 influenza virus vaccine, unspecified formulation Alesia Brandon [facility] 06-13-2015 influenza virus vaccine, unspecified formulation Alesia Brandon [facility] 01-04-2009 hepatitis A vaccine, unspecified formulation Alesia Brandon [facility] 06-26-2008 hepatitis A vaccine, unspecified formulation Alesia Brandon [facility] 06-26-2008 tetanus toxoid, redu philipp diphtheria toxoid, and acellular pertussis vaccine, adsorbed Aelsia Brandon [facility] 06-26-2008 typhoid vaccine, unspecified formulation Alesia Brandon [facility] Payers Date Payer Category Payer Private Health Insurance [employer] [id number] 2024 Unknown [id number] 2017 Medicare [id number] 1959 Medicare [id number] 1959 Self-pay [id number] 1959 Unknown [id number] 1952 Unknown [id number] [id number]. 593 1952 Unknown [id number] [id number]. 1259 1952 Unknown [id number] 2.16.840.1.266636.3.579.2. 727 1952 Unknown [id number] 2.16.840.1.782195.3.579.2. 727 1952 Unknown [id number] 2.16.840.1.692586.3.579.2. 727 1952 Unknown [id number] 2.16.840.1.839293.3.579.2. 727 1952 Unknown [id number] 2.16.840.1.702019.3.579.2. 727 1952 Unknown [id number] 2.16.840.1.128940.3.579.2. 727 1952 Unknown [id number] 2.16.840.1.737873.3.579.2. 727 1952 Unknown [id number] 2.16.840.1.944738.3.579.2. 727 1952 Unknown [id number] 2.16.840.1.894741.3.579.2. 727 Unknown [id number] 2.16.840.1.812831.3.579.2. 593 Unknown [id number] [id number]. 593 Social History Date Type Detail Facility Start: 07-20-2023 End: 03-28-2024 Tobacco smoking status NHIS Never smoked tobacco [facility] Start: 07-22-2024 End: 08-09-2024 Alcoholic beverage intake Current drinker of alcohol (finding) [facility] Start: 07-20-2023 End: 07-22-2024 [facility] of [facility] Start: 07-20-2023 End: 07-22-2024 Alcohol Use Disorder Identification Test - Consumption [AUDIT-C] [facility] How often to you hav e a drink containing alcohol? Monthly or less [facility] How many standard dr inks containing alcohol do you have on a typical day? 1 or 2 [facility] How often do you hav e 6 or more drinks on 1 occasion? Never [facility] Start: 07-20-2023 Alcohol Comment Caffeine intake: 1-2 cups per day [facility] Start: 1950 Sex assigned at Not on file [facility] Start: 07-20-2023 Gender identity Identifies as female gender (finding) [facility] Tobacco smoking status Never [facility] [place] Sexual Orientation [facility] Start: 10-03-2020 Sex Female (finding) [facility] Clinical Note 01-16-2025 Note Date & Type Note Facility 01-16-2025 Note Patient Education Cardiovascular Hypotension As the heart beats, it forces blood through the body. Hypotension, commonly called low blood pressure, is when the force of blood pumping through the arteries is too weak. Arteries are blood vessels that carry blood from the heart throughout the body. Depending on the cause and severity, hypotension may be harmless (benign) or may cause serious problems (be critical). When your blood pressure is too low, you may not get enough blood to your brain or to the rest of your organs. This can cause weakness, light-headedness, a rapid heartbeat, and fainting. What are the causes? This condition may be caused by: ??? Blood loss. ??? Loss of body fluids (dehydration). ??? Heart problems. ??? Hormone (endocrine) problems. ??? . ??? Severe infection. ??? Lack of certain nutrients. ??? Severe allergic reactions (anaphylaxis). ??? Certain medicines, such as blood pressure medicine or medicines that make the body lose excess fluids (diuretics). Sometimes, hypotension may be caused by not taking medicine as directed, such as taking too much of a certain medicine. What increases the risk? The following factors may make you more likely to develop this condition: ??? Age. Risk increases as you get older. ??? Having a condition that affects the heart or the central nervous system. What are the signs or symptoms? Common symptoms of this condition include: ??? Weakness. ??? Light-headedness. ??? Dizziness. ??? Blurred vision. ??? Tiredness (fatigue). ??? Rapid heartbeat. ??? Fainting, in severe cases. How is this diagnosed? This condition is diagnosed based on: ??? Your medical history. ??? Your symptoms. ??? Your blood pressure measurement. Your health care provider will check your blood pressure when you are: ? Lying down. ? Sitting. ? Standing. A blood pressure reading is recorded as two numbers, such as 120 over 80 (or 120/80). The first ( top ) number is called the systolic pressure. It is a measure of the pressure in your arteries as your heart beats. The second ( bottom ) number is called the diastolic pressure. It is a measure of the pressure in your arteries when your heart relaxes between beats. Blood pressure is measured in a unit called mm Hg. Healthy blood pressure for most adults is 120/80. If your blood pressure is below 90/60, you may be diagnosed with hypotension. Other information or tests that may be used to diagnose hypotension include: ??? Your other vital signs, such as your heart rate and temperature. ??? Blood tests. ??? Tilt table test. For this test, you will be safely secured to a table that moves you from a lying position to an upright position. Your heart rhythm and blood pressure will be monitored during the test. How is this treated? Treatment for this condition may include: ??? Changing your diet. This may involve drinking more water or increasing your salt (sodium) intake with high-sodium foods. ??? Taking medicines to raise your blood pressure. ??? Changing the dosage of certain medicines you are taking that might be lowering your blood pressure. ??? Wearing compression stockings. These stockings help to prevent blood clots and reduce swelling in your legs. In some cases, you may need to go to the hospital for: ??? Fluid replacement. This means you will receive fluids through an IV. ??? Blood replacement. This means you will receive donated blood through an IV (transfusion). ??? Treating an infection or heart problems, if this applies. ??? Monitoring. You may need to be monitored while medicines that you are taking wear off. Follow these instructions at home: Eating and drinking ??? Drink enough fluid to keep your urine pale yellow. ??? Eat a healthy diet, and follow instructions from your health care provider about eating or drinking restrictions. A healthy diet includes: ? Fresh fruits and vegetables. ? Whole grains. ? Lean meats. ? Low-fat dairy products. ??? Increase your salt intake if told to do so. Do not add extra salt to your diet unless your health care provider tells you to do that. ??? Eat frequent, small meals. ??? Avoid standing up suddenly after eating. Medicines ??? Take xryr-xxw-yhsmckc and prescription medicines only as told by your health care provider. ? Follow instructions from your health care provider about changing the dosage of your current medicines, if this applies. ? Do not stop or adjust any of your medicines on your own. General instructions ??? Wear compression stockings as told by your health care provider. ??? Get up slowly from lying down or sitting positions. This gives your blood pressure a chance to adjust. ??? Avoid hot showers and excessive heat as directed by your health care provider. ??? Return to your normal activities as told by your health care provider. Ask your health care provi (more content not included)... [facility] History of Present illness Narrative 08-09-2024 Cari Overton, DO - 08/09/2024 9:00 AM EST Note Date & Type Note Facility 08-09-2024 History of Presen t illness Narrative Images from the original note were not included. Cari Overton D.O. Obstetrics and Gynecology Patient: Elisabeth Edwards : 1950 (73 y.o.) Yearly Wellness Exam Date: 08/09/2024 Reason for Visit - Chief Complaint Patient presents with Gynecologic Exam Denies concerns, Denies bowel/bladder/breast concerns. Pt is up to date with mammogram. Denies vaginal bleeding/spotting. Visit Vitals BP 130/70 Wt 110 lb BMI 18.59 kg/m Smoking Status Never BSA 1.51 m No Known Allergies History of Present Illness, Associated Treatments and Results - OB History Para Term AB Living 3 3 3 0 0 3 SAB IAB Ectopic Multiple Live Births 0 0 0 0 3 # Outcome Date GA Lbr Jg/2nd Weight Sex Type Anes PTL Lv 3 Term 2 Term 1 Term Obstetric Comments Pap smear 07/02/22 wnl, Mammogram 07/18/24 wnl @ [place], DEXA 07/14/22 osteopenia Review of Systems - General: Chills denies. Allergy/Immunology: Rash Denies. ENT: Denies Difficulty swallowing. Endocrine: Denies Cold intolerance denies. Heat intolerance denied. Respiratory: Denies Chest pain denies. Shortness of breath denies. Breast: Denies Bloody nipple discharge denies. Breast lump denies. Cardiovascular: Denies Chest pain. Gastrointestinal: Abdominal pain denies. Blood in stool denies. Hematology: Easy bruising denies. Prolonged bleeding denies. Women Only: Breast lump denies. Vaginal bleeding between periods is denied. Vaginal discharge/itching denied. Genitourinary: Blood in urine denies. Painful urination denies. Incontinence denies. Skin: Hair changes. Neurologic: Seizures denied. Stroke denies. Psychiatric: Anxiety denies. Depressed mood denies. Medication Documentation Review Audit Reviewed by Kira Martin MA (Health Worker) on 08/09/24 at 0853 Medication Order Taking? Sig Documenting Provider Last Dose Status biotin 10 MG tablet [id number] Biotin Cari Overton DO Active Cholecalciferol (Vitamin D3) 1000 units capsule [id number] 1 (one) time each day at the same time Cari Overton DO Active Discontinued 08/09/24 0853 Discontinued 08/09/24 0853 Past Medical History: Diagnosis Date Abnormal Pap smear of cervix Past Surgical History: Procedure Laterality Date BREAST BIOPSY Right 2013 COLONOSCOPY 04/[address] Laureano Family History Problem Relation Name Age of Onset Diabetes Mother Myelodysplastic syndrome Father Colon cancer Brother 1 brother Lung cancer Brother 1 brother Breast cancer Mother's Sister Physical Exam - General appearance, mentation, extraocular movements, facial strength and movement, hearing, upper and lower extremity strength and tone, sensation to gross testing, coordination, and gait are normal or at baseline unless noted below. General Examination: GENERAL APPEARANCE: alert oriented well developed, well nourished. HEAD: normocephalic atraumatic. EYES: sclera anicteric. EARS: no obvious hearing deficit. SKIN: warm and dry. HEART: regular rate and rhythm. LUNGS: clear to auscultation bilaterally. CHEST: axillary nodes grossly normal. BREASTS: no masses palpable bilaterally, normal nipples bilaterally. ABDOMEN: soft, nontender, nondistended, no masses palpable. BACK: no costovertebral angle tenderness, no obvious scoliosis/kyphosis. FEMALE GENITOURINARY: atrophic vaginal mucosa, cervix absent of lesions, nontender, uterus AV, mobile, ovaries nonpalpable and nontender. EXTREMITIES: no edema. NEUROLOGIC: alert and oriented. PSYCH: cooperative with exam. Diagnoses and all orders for this visit: Encounter for gynecological examination without abnormal finding Screening for malignant neoplasm of cervix - IGP, RFX APTIMA HPV ASCU Encounter for screening mammogram for breast cancer - Bilateral screening mammogram with tomosynthesis; Future Postmenopausal status, age-related - DEXA bone density Screening for osteoporosis - DEXA bone density Pap, pelvic and breast exam completed. Findings of today's exam discussed with the patient. Continue MSBE. Ca/Vit D recommendations reviewed with the patient. The patient is to contact the office with any changes to her gynecological condition. The patient is to return in 1 year or as needed ICD-10-CM 1. Encounter for gynecological examination without abnormal finding Z01.419 2. Screening for malignant neoplasm of cervix Z12.4 IGP, RFX APTIMA HPV ASCU 3. Encounter for screening mammogram for breast cancer Z12.31 Bilateral screening mammogram with tomosynthesis 4. Postmenopausal status, age-related Z78.0 DEXA bone density 5. Screening for osteoporosis Z13.820 DEXA bone density documented in this encounter [facility] Clinical Note 03-28-2024 Note Date & Type [...] ? Atopic dermatitis or eczema. This is intermediate (chronic) inflammation of the skin. ? Food [...] related conditions, such as: ? Asthma. ? [employer] [facility] [facility] eye. This is eye inflammation caused by [...] and dust regularly. General instructions ? Take xznl-xwg-hdnviue and prescription medicines only as told by your health care provider. ? Drink enough fluid to keep your urine pale yellow. ? Keep all follow-up visits as told by your health care provider. This is important. Where to find more information ? [employer]: www.aaaai.org [...] drive yourself to (more content not included)... [facility] Evaluation + Plan note Note Date & Type Note Facility Evaluation + Plan note Future Appointments Appointment Date:01/16/2025 08:00:00 AM Scheduled Provider: Location:[facility] Appointment Type:FM Medicare Wellness Subsequent [facility] Evaluation note Note Date & Type Note Facility Evaluation note Diagnosis Encounter for gynecological examination without abnormal finding Screening for malignant neoplasm of cervix Screening for malignant neoplasm of the cervix Encounter for screening mammogram for breast cancer Postmenopausal status, age-related Screening for osteoporosis Special screening for osteoporosis documented in this encounter [facility] Hospital course Narrative Note Date & Type Note Facility Hospital course Narrative No data available for this section [facility] Hospital Discharge instructions Note Date & Type Note Facility Hospital Discharge instructions No data available for this section [facility] Progress note Note Date & Type Note Facility Progress note No data available for this section [facility] Summary Purpose Family History No Family History Records FoundNo Family History Records FoundNo Family History Records FoundNo Family History Records FoundNo Family History Records FoundNo Family History Records FoundNo Family History Records Found No data available for this section No Family History Records FoundNo Family History Records Found Advance Directives No Advanced Directives Records FoundNo Advanced Directives Records FoundNo Advanced Directives Records FoundNo Advanced Directives Records FoundNo Advanced Directives Records FoundNo Advanced Directives Records FoundNo Advanced Directives Records FoundNo Advanced Directives Records FoundNo Advanced Directives Records Found Additional Source Comments INFORMATION SOURCE (unrecogn ized section and content) DATE CREATED AUTHOR 06/01/2021 [facility] DATE CREATED AUTHOR AUTHOR'S ORGANIZ ATION 10/09/2022 [facility] DATE CREATED AUTHOR AUTHOR'S ORGANIZ ATION 08/15/2024 [facility] EPIC DATE CREATED AUTHOR AUTHOR'S ORGANIZ ATION 10/28/2024 [facility] DATE CREATED AUTHOR AUTHOR'S ORGANIZ ATION 01/17/2025 [facility] DATE CREATED AUTHOR AUTHOR'S ORGANIZ ATION 02/10/2025 [facility] Reason for Visit (unrecogniz ed section and content) Reason Comments Gynecologic Exam Denies concerns, Den ies bowel/bladder/breast concerns. Pt is up to date with mammogram. Denies vaginal bleeding/spotting. 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 [employer] [facility]. provides no warranty or guarantee of the accuracy or completeness of information in this document.
== END 2025-03-02 10:08 | disposition home or self-care (01) ==
LOC: RAD 10:13
PROVIDERS: PCP Nurse Practitioner; Visit Provider Nurse Practitioner
DX: M95.4 Acquired deformity of chest and rib (principal)
CPT/HCPCS: 71101

== ENCOUNTER 2025-07-20 10:02 | Outpatient (OUT) | payer MEDICARE, OTHER, SELFPAY ==
--- NOTE | 2025-07-20 10:06 | MM_ITS ---
Patient Name: RADHA BARNETT MR#: [id number] : 1950 Exam Date: 07/20/2025 Ordering Doctor: DR. PETAR DUBOIS D.O. RADIOLOGY REPORT PROCEDURE: MM TOMOSYNTHESIS SCREENING BI COMPARISON: MM TOMOSYNTHESIS SCREENING BI, 07/18/2024. MM TOMOSYNTHESIS SCREENING BI, 07/15/2023. MG MAMM SCREEN 3D JUSTO CAD, 07/14/2022. MG MAMM JUSTO SCRN W CAD DIG, 04/27/2013. INDICATIONS: Screening Calculator Name NCI Breast Cancer Risk Assessment Tool 5 Year Breast Cancer Risk 1.70% Lifetime Breast Cancer Risk 4.40% Personal Breast Cancer No Personal Ovarian Cancer No Treatments None Family Cancers Aunt-maternal with breast cancer at age 80; Brother with lung cancer at age 65; Brother with colon cancer at age 70. LOCATION: [facility] BREAST COMPOSITION: There are scattered areas of fibroglandular density. FINDINGS: DIAGNOSTIC CATEGORY 1--NEGATIVE. RIGHT BREAST: No significant suspicious finding. LEFT BREAST: No significant suspicious finding. RECOMMENDATIONS: ROUTINE MAMMOGRAM AND CLINICAL EVALUATION IN 12 MONTHS. Dictated by: Jam Aguilar DO on 07/20/2025 at 11:45 Approved by: Jam Aguilar DO on 07/20/2025 at 11:45
--- OUTSIDE RECORDS SUMMARY | 2025-07-20 10:07 | XMS_ITS | Clinical Summary ---
Author Organization [facility] Address [address] [place] [address] Care Team Providers Care Completion Engineer Name Role Phone Shanti Roth MD Primary Care Provider Medications MedicationSigDispense QuantityRefillsLast FilledStart DateEnd DateStatus Diclofenac Sodium (VOLTAREN) 1 % TOPICAL gel Indications:Pain in joint, ankle and foot,Tibialis posterior tendinitis, Osteoarthrosis, unspecified whether generalized or localized, ankle and foot Apply 4 g to affected area four times daily. 2 Tube ctive Active Problems ProblemNoted DateDiagnosed DatePain in joint, ankle and foot05/14/2011Tibialis posterior nxantwpdqq77/12/2011Osteoarthrosis, unspecified whether generalized or localized, ankle and foot05/14/2011 Social History Tobacco UseTypesPacks/DayYears UsedDateSmoking Tobacco: Never Assessed CommentsUnknownSex and Gender InformationValueDate RecordedSex Assigned at Not on fileLegal RdgFrincs47/02/2012 10:11 AM ESTGender IdentityNot on file Sexual OrientationNot on file Plan of Treatment Health MaintenanceDue DateLast DoneCommentsAnxiety Hfqilecew37/24/1971Depression Lrnsacnsg12/24/1971Hepatitis C Avaguxwyh84/24/1971DTaP,Tdap,Td Vaccine (1 - Tdap)1971Mammogram Clojksjot45/24/1993CT Dgsxnhwrlqqu75/24/1998Cologuard (FIT-DNA)09/26/19976377Dfmyzippobr01/24/1998Colorectal Cancer Qywwutwqk39/24/1998 Diabetes Gsinqndjj97/24/1998Fecal Occult Blood1997Lipid Screening 09/26/19972592Qkhwowpygzpzd26/24/1998Pneumococcal Vaccine: 50+ (1 of 1 - PCV) 2002Shingrix Vaccine (1 of 2)2002Bone Density Cqjufqeur57/24/2018 Advance Directive Ovhyqwsqlp15/01/2025ovid-19 Vaccine (1 - 2024-26 season) 2025Influenza Vaccine (#1)2025RSV Vaccine (1 - 1-dose 75+ series) 2027 Insurance * Guarantor: Elisabeth Edwards EAccount TypeRelation to PatientDate of BirthPhone Billing AddressPersonal/RlampxCvwb11/24/1951 [address] [place] [id number] Care Teams Team MemberRelationshipSpecialtyStart DateEnd Shanti Roth MD [address] [place] [address] PCP - GeneralFamily Uwvfexca14/4/11
--- OUTSIDE RECORDS SUMMARY | 2025-07-20 10:07 | XMS_ITS | Clinical Summary ---
Author Organization [facility] Address [address] [place] [address] Care Team Providers Care Ski Patrol Officer Name Role Phone Jason Santillan MD Primary Care Provider [phone] Allergies No known active allergies Medications MedicationSigDispense QuantityRefillsLast FilledStart DateEnd DateStatus biotin 10 MG tablet BiotinActive Cholecalciferol (Vitamin D3) 1000 units capsule 1 (one) time each day at the same timeActive Active Problems ProblemNoted DateDiagnosed DateEpiretinal membrane (ERM) of left eye03/27/2025 Age-related nuclear cataract of both eyes03/27/2025Dry eyes03/27/2025Ocular ngswziij94/25/2025 Family History Medical HistoryRelationNameCommentsColon cancerBrother1 brotherLung cancer Brother1 brotherMyelodysplastic syndromeFatherMacular degenerationMaternal GrandmotherDiabetesMotherBreast cancerMother's SisterGlaucomaNeg HxRelationName XflpipLamthqzuKftovorQtnjikun6IhdsmmjdEvvmi8OklutnBjvamjcy GrandmotherMother Mother's SisterSonDeceased Social History Tobacco UseTypesPacks/DayYears UsedDateSmoking Tobacco: Never Tobacco Cessation:Counseling Given: Not Answered Alcohol UseStandard Drinks/WeekCommentsYes0 (1 standard drink = 0.6 oz pure alcohol)Caffeine intake: 1-2 cups per dayAUDIT-CAnswerDate RecordedQ1: How often do you have a drink containing alcohol?Monthly or less07/20/2023Q2: How many drinks containing alcohol do you have on a typical day when you are drinking?1 or Q3: How often do you have six or more drinks on one occasion?Never 07/20/2023CommentsUnknownSex and Gender InformationValueDate RecordedSex Assigned at BirthNot on fileLegal SbeQlygop25/15/2023 7:21 PM EDTGender Identity Ikoklg6207/20/2023 11:39 AM ESTSexual OrientationNot on file Last Filed Vital Signs Vital SignReadingTime TakenCommentsBlood Wcwcqtfs004/70008/09/2024 8:54 AM EST Pulse--Temperature--Respiratory Rate--Oxygen Saturation--Inhaled Oxygen Concentration--Eoqadd89.9 kg (110 lb)08/09/2024 8:54 AM JUXVkylmf510.8 cm (5' 4.5 )07/21/2023 10:58 AM ESTBody Mass Index18.5907/21/2023 10:58 AM EST Plan of Treatment DateTypeDepartmentCare Team (Latest Contact Info)Aojuvwoqkye15/01/2026 9:45 AM EDTOffice Visit [facility] [address] [place] [phone] Cari Overton DO [address] [place] [address] 03/28/2026 8:15 AM EDTOffice Visit [facility] [address] [place] [address] Jon Galaviz DO [address] [place] [address] Health MaintenanceDue DateLast DoneCommentsCT Ptddednnudmb76/24/1953FIT-DNA 1952FIT1950FOBT1950 0355Cuonmbqimgqxs26/24/1953neumococcal Vaccine: 65+ Years (1 of 1 - PCV)2002COVID-19 Vaccine ( - 2024- season) , 10/05/2020Influenza Vaccine (#1)511/, 05/23/2020, 05/17/2019, Additional history pwzgbmUyyyjjeek09/16/202512/, 07/15/2023, 07/02/2022, Additional history hxunyaVrosqzjhcht23/26/203110/ Colorectal Cancer Oatorcbea03/26/2031 Procedures Procedure NamePriorityDate/TimeAssociated DiagnosisCommentsMAMMOGRAM*Routine 07/18/2024 11:20 AM ESTfrom Last 3 Months or Most Recently Relevant to Health Maintenance Results * MAMMOGRAM* (07/18/2024 11:20 AM EST)Anatomical RegionLateralityModality Radiographic Imaging Narrative Authorizing ProviderResult TypeResult StatusKathleen E Rinkes DOIMG XR PROCEDURESFinal Result from Last 3 Months or Most Recently Relevant to Health Maintenance Insurance [place], [place] [id number] Care Teams Team MemberRelationshipSpecialtyStart DateEnd Date Jason Santillan MD [facility] - [facility] Jmsjmgai48/19/23
== END 2025-07-20 10:03 | disposition home or self-care (01) ==
LOC: MAMMO 10:02
PROVIDERS: PCP Nurse Practitioner; Visit Provider Obstetrics & Gynecology
DX: Z12.31 Encounter for screening mammogram for malignant neoplasm of breast (principal); Z80.3 Family history of malignant neoplasm of breast; Z80.1 Family history of malignant neoplasm of trachea, bronchus and lung; Z80.0 Family history of malignant neoplasm of digestive organs
CPT/HCPCS: 77063; 77067